=== PATIENT | female | born 2000 | race Caucasian/White ===

== ENCOUNTER 2021-03-17 22:21 | Emergency (ER) | payer MEDICAID, SELFPAY ==
[2021-03-17 22:38] VITALS: BP 115/75; PULSE 88; RESP 16; TEMP 36.6; O2SAT 99; BMI 34.2
[2021-03-17 23:19] LABS: Glucose Urine UA >=1000 MG/DL (NEG); Leukocyte Esterase Urine NEG (NEG); Nitrite Urine NEG (NEG); Specific Gravity - Urine 1.025 (1.005-1.025); Urine Blood NEG (NEG); Urine Ketones NEG (NEG); Urine Protein NEG (NEG-TRACE)
[2021-03-17 23:21] LABS: Appearance Urine CLEAR; Color Urine STRAW; UPreg QC Valid YES; Urine Pregnancy NEGATIVE (NEGATIVE)
[2021-03-17 23:38] LABS: Mucus Urine TRACE /LPF; RBC Urine 0-2 /HPF (0); Squamous Epithelial Cell Urine TRACE /LPF; WBC Urine 0-2 /HPF (0-4)
--- NOTE | 2021-03-18 02:59 | ED_ITS ---
HPI - Female Genitourinary General Chief complaint: Urogenital-Female Stated complaint: uti? Time Seen by Provider: 03/18/21 02:43 Source: patient Mode of arrival: ambulatory History of Present Illness HPI Narrative: 20-year-old female with significant past medical history of diabetes who presents this evening with excessive urination and mild burning without fevers, chills, nausea, vomiting, diarrhea. Patient states that she did take 1 remaining antibiotic pill that she had left over but did not have anymore. Otherwise patient denies any vaginal discharge. Related Data Allergies Allergy/AdvReac Type Severity Reaction Status Date / Time No Known Allergies Allergy Unverified 04/21/20 18:48 [No Known Allergies*] Review of Systems Review of Systems: Pertinent positives and negatives as stated in HPI 10 point review systems is otherwise negative. [facility] Past Medical History Source: nursing notes reviewed Medical History Diabetes type I Hyperthyroidism Social History Social History Advance Directives: No Advance Directives Information Provided: No Patient : No Physical Exam Vital Signs: Vital Signs: Last Vital Signs Temp 98 F 03/17/21 22:38 Pulse 88 03/17/21 22:38 Resp 16 03/17/21 22:38 BP 115/75 03/17/21 22:38 Pulse Ox 99 03/17/21 22:38 Body Mass Index 34.2 VITAL SIGNS: Reviewed. GENERAL: Well developed, well nourished, in no acute distress. HEAD: Normocephalic/atraumatic, EYES: PERRLA, EOMI LUNGS: Normal breath sounds. No adventitious sounds or accessory muscle use. SpO2<99> CARDIOVASCULAR: Regular rate and rhythm without noted murmurs ABDOMEN: Soft, non-tender, non-distended with bowel sounds. MUSCULOSKELETAL: No tenderness, deformities, or effusions noted on gross inspection. EXTREMITIES: No cyanosis, clubbing or edema. SKIN: Inspection of the skin reveals no rashes NEUROLOGIC: Alert and oriented x 4. Strength and sensation to light touch were grossly intact x 4. Course Course Course Narrative: 20-year-old female with history and clinical presentation suggestive of either bacterial or yeast associated UTI. On review of all investigations there is no evidence of bacterial UTI and patient was instructed to treat with [id number] medication. She was otherwise discharged home in stable condition. MDM - Female Genitourinary Lab Data Labs: Lab Results 03/17/21 03/17/21 Range/Units 23:04 23:04 Urine Color STRAW Urine Appearance CLEAR Urine pH 6.0 (5.0-8.0) Ur Specific [place] 1.025 (1.005-1.025) Urine Protein NEG (NEG-TRACE) MG/DL Urine Glucose (UA) >=1000 H (NEG) MG/DL Urine Ketones NEG (NEG) MG/DL Urine Blood NEG (NEG) Urine Nitrite NEG (NEG) Ur Leukocyte Esterase NEG (NEG) Urine RBC 0-2 (0) /HPF Urine WBC 0-2 (0-4) /HPF Ur Squamous Epith Cells TRACE /LPF Urine Bacteria NONE /LPF Urine Mucus TRACE /LPF Urine Test NEGATIVE (NEGATIVE) Discharge Plan Discharge Clinical Impression: Yeast infection Patient Disposition: Home, Self-Care Instructions: Yeast Infection (ED) Additional Instructions: 1. Recommend resuming all home medications as prescribed. 2. Recommend using vkin-glc-qdyablh generic version of Monistat, 3 day option, and follow-up with primary care provider and/or scooping machine tender on Saturday morning. Return to the ER for acute worsening of your symptoms. Referrals: Yasmin Chang [Primary Care Provider] - 2 days Interventions: ED Discharge Assessment Last Done: 03/18/21 03:24 Discharge Date/Time: 03/18/21 03:24
== END 2021-03-18 03:24 | disposition home or self-care (01) ==
PROVIDERS: Emergency Provider Student in an Organized Health Care Education/Training Program; PCP Nurse Practitioner
DX: B37.3 Candidiasis of vulva and vagina (principal); E10.9 Type 1 diabetes mellitus without complications
CPT/HCPCS: 36415; 81001; 81025; 99283

== ENCOUNTER 2022-01-15 18:39 | Emergency (ER) | payer MEDICAID, SELFPAY ==
[2022-01-15 18:44] VITALS: BP 135/88; PULSE 114; RESP 22; TEMP 36.8; O2SAT 98; BMI 35.2
--- NOTE | 2022-01-15 18:47 | ECG_ITS ---
Test Reason : CHEST PAIN Blood Pressure : / mmHG Vent. Rate : 110 BPM Atrial Rate : 110 BPM P-R Int : 134 ms QRS Dur : 080 ms QT Int : 338 ms P-R-T Axes : 016 055 013 degrees QTc Int : 457 ms Sinus tachycardia Cannot rule out Anterior infarct , age undetermined Abnormal ECG No previous ECGs available Referred By: Generic ED Physician Electronically Signed By:Bam Verma
[2022-01-15 19:21] LABS: MANUAL DIFF FLAG NO
[2022-01-15 19:23] LABS: Basophils Percent Auto 0.4 % (0-2); Eosinophils Absolute Auto 0.1 X10*3/uL (0.0-0.4); Hematocrit 43.7 % (37.0-47.0); Hemoglobin 14.5 g/dl (12.0-16.0); Imm Gran Abs Auto 0.03 X10*3/uL (0.00-0.03); Imm Gran Pct Auto 0.3 % (0.0-0.4); Lymphocytes Absolute Auto 1.9 X10*3/uL (1.2-4.9); Lymphocytes Percent Auto 18.9 % (20-40); Mean Corpuscular HGB Conc 33.2 g/dl (31.0-35.0); Mean Corpuscular Hemoglobin 28.1 pg (27.0-33.0); Mean Corpuscular Volume 84.7 fL (80.0-98.0); Mean Platelet Volume 9.2 fL (9.4-12.3); Monocytes Absolute Auto 0.7 X10*3/uL (0.1-1.2); Monocytes Percent Auto 7.1 % (2-11); Neutrophils Absolute Auto 7.1 x10*3/uL (2.0-8.3); Neutrophils Percent Auto 72.3 % (45-73); Platelet Count 364 X10*3/uL (160-400); Red Blood Count 5.16 X10*6/uL (4.20-5.50); Red Cell Distribution Width 13.3 % (11.0-16.0); White Blood Count 9.8 X10*3/uL (4.8-10.8)
[2022-01-15 19:25] LABS: Glucose, Whole Blood 120 mg/dL (60-115)
[2022-01-15 19:38] LABS: Anion Gap 15 (12-20); Blood Urea Nitrogen 10 mg/dL (9-16); Calcium 9.6 mg/dL (8.4-10.2); Carbon Dioxide 22 mmol/L (22-29); Chloride 102 mmol/L (96-108); Creatinine Clr Calc Pharmacy 139.2; Estimated Glomerular Filt Rate > 60; Glucose Random 137 mg/dL (60-115); Potassium 4.2 mmol/L (3.3-5.1); Sodium 135 mmol/L (135-145)
[2022-01-15 19:46] LABS: Troponin-I High Sensitivity < 3.5 ng/L (<3.5-17.0)
[2022-01-15 20:35] LABS: Appearance Urine HAZY; Color Urine DARK YELLOW
[2022-01-15 20:42] LABS: UACC CULT YES
[2022-01-15 20:52] LABS: Bacteria Urine 2+ /LPF; Squamous Epithelial Cell Urine 1+ /LPF; WBC Urine TNTC /HPF (0-4)
--- NOTE | 2022-01-15 23:35 | ED_ITS ---
HPI - Chest Pain General Chief Complaint: Chest Pain Stated Complaint: lower back pain/chest pain/type 1 diabetic Time Seen by Provider: 01/15/22 23:35 Source: patient Mode of arrival: ambulatory Limitations: no limitations History of Present Illness HPI narrative: Patient diabetic with history of recurrent UTI been having frequency dysuria since on today no fever no chills no nausea no vomiting, epigastric pain also no vaginal discharge patient just finished her period no hematuria no flank pain Related Data Previous Rx's Medication Instructions Recorded cefpodoxime 200 mg tablet 200 mg PO BID #14 tabs 01/15/22 phenazopyridine 200 mg tablet 200 mg PO TID 2 days #6 tabs 01/15/22 (Pyridium) Allergies Allergy/AdvReac Type Severity Reaction Status Date / Time No Known Allergies Allergy Verified 01/15/22 18:44 [No Known Allergies*] Review of Systems Review of Systems: Yes all other systems are reviewed and are negative PMFSH Past Medical History Medical History Diabetes type I Hyperthyroidism Physical Exam Vital Signs: Vital Signs: Last Vital Signs Temp 98.2 F 01/15/22 18:44 Pulse 97 01/15/22 23:37 Resp 16 01/15/22 23:37 BP 135/88 01/15/22 18:44 Pulse Ox 99 01/15/22 23:37 O2 Del Method 01/15/22 23:37 BMI result Body Mass Index 35.2 Appearance: Alert. Oriented X3. No acute distress. ENT: Pharynx normal. Oral Mucosa moist Neck: Normal inspection. Neck supple. CVS: Normal heart rate and rhythm. Pulses normal. Respiratory: No respiratory distress. Equal air entry bilateral, no wheezing/rales/rhonchi Abdomen: Soft and nontender. Bowel sounds are present, no mass palpable, no CVA tenderness Skin: Skin warm and dry. Normal skin color. Normal skin turgor. Extremities: No lower extremity edema. No calf tenderness Neuro: Oriented X 3. No motor deficit. MDM - Chest Pain MDM Narrative Medical decision making narrative: Patient with uncomplicated UTI will discharge patient home on cefpodoxime and Pyridium Lab Data Attestation: I reviewed the patient's lab results. Result diagrams: 01/15/22 19:16 01/15/22 19:16 Labs: Lab Results 01/15/22 01/15/22 01/15/22 Range/Units 19:16 19:16 19:16 WBC 9.8 (4.8-10.8) X10*3/uL RBC 5.16 (4.20-5.50) X10*6/uL Hgb 14.5 (12.0-16.0) g/dl Hct 43.7 (37.0-47.0) % MCV 84.7 (80.0-98.0) fL MCH 28.1 (27.0-33.0) pg MCHC 33.2 (31.0-35.0) g/dl RDW 13.3 (11.0-16.0) % Plt Count 364 (160-400) X10*3/uL MPV 9.2 L (9.4-12.3) fL Immature Gran % (Auto) 0.3 (0.0-0.4) % Neut % (Auto) 72.3 (45-73) % Lymph % (Auto) 18.9 L (20-40) % Glenn % (Auto) 7.1 (2-11) % Eos % (Auto) 1.0 (0-4) % Baso % (Auto) 0.4 (0-2) % Lymph # (Auto) 1.9 (1.2-4.9) X10*3/uL Glenn # (Auto) 0.7 (0.1-1.2) X10*3/uL Eos # (Auto) 0.1 (0.0-0.4) X10*3/uL Baso # (Auto) 0.0 (0.0-0.2) X10*3/uL Abs Immat Gran (auto) 0.03 (0.00-0.03) X10*3/uL Absolute Neuts (auto) 7.1 (2.0-8.3) x10*3/uL Absolute Nucleated RBC 0.000 (0.0-0.012) X10*3/uL Nucleated RBC % (auto) 0.0 (0.0-0.2) /100WBC Sodium 135 (135-145) mmol/L Potassium 4.2 (3.3-5.1) mmol/L Chloride 102 (96-108) mmol/L Carbon Dioxide 22 (22-29) mmol/L Anion Gap 15 (12-20) BUN 10 (9-16) mg/dL Creatinine 0.67 (0.5-1.4) mg/dL Estim Creat Clear Calc 139.2 Estimated GFR > 60 POC Glucose (60-115) mg/dL Random Glucose 137 H (60-115) mg/dL Calcium 9.6 (8.4-10.2) mg/dL Troponin I High Sens < 3.5 (<3.5-17.0) ng/L Urine Color Urine Appearance Urine pH Ur Specific [place] Urine Protein Urine Glucose (UA) Urine Ketones Urine Blood Urine Nitrite Ur Leukocyte Esterase Urine RBC (0) /HPF Urine WBC (0-4) /HPF Ur Squamous Epith Cells /LPF Urine Bacteria /LPF 01/15/22 01/15/22 Range/Units 19:19 20:28 WBC (4.8-10.8) X10*3/uL RBC (4.20-5.50) X10*6/uL Hgb (12.0-16.0) g/dl Hct (37.0-47.0) % MCV (80.0-98.0) fL MCH (27.0-33.0) pg MCHC (31.0-35.0) g/dl RDW (11.0-16.0) % Plt Count (160-400) X10*3/uL MPV (9.4-12.3) fL Immature Gran % (Auto) (0.0-0.4) % Neut % (Auto) (45-73) % Lymph % (Auto) (20-40) % Glenn % (Auto) (2-11) % Eos % (Auto) (0-4) % Baso % (Auto) (0-2) % Lymph # (Auto) (1.2-4.9) X10*3/uL Glenn # (Auto) (0.1-1.2) X10*3/uL Eos # (Auto) (0.0-0.4) X10*3/uL Baso # (Auto) (0.0-0.2) X10*3/uL Abs Immat Gran (auto) (0.00-0.03) X10*3/uL Absolute Neuts (auto) (2.0-8.3) x10*3/uL Absolute Nucleated RBC (0.0-0.012) X10*3/uL Nucleated RBC % (auto) (0.0-0.2) /100WBC Sodium (135-145) mmol/L Potassium (3.3-5.1) mmol/L Chloride (96-108) mmol/L Carbon Dioxide (22-29) mmol/L Anion Gap (12-20) BUN (9-16) mg/dL Creatinine (0.5-1.4) mg/dL Estim Creat Clear Calc Estimated GFR POC Glucose 120 H (60-115) mg/dL Random Glucose (60-115) mg/dL Calcium (8.4-10.2) mg/dL Troponin I High Sens (<3.5-17.0) ng/L Urine Color DARK YELLOW Urine Appearance HAZY Urine pH TNP Ur Specific [place] TNP Urine Protein TNP Urine Glucose (UA) TNP Urine Ketones TNP Urine Blood TNP Urine Nitrite TNP Ur Leukocyte Esterase TNP Urine RBC 10-14 H (0) /HPF Urine WBC TNTC H (0-4) /HPF Ur Squamous Epith Cells 1+ /LPF Urine Bacteria 2+ /LPF ECG Data ECG #1: Attestation: I personally reviewed and interpreted this ECG as follows: Interpretation: Sinus tachycardia heart rate 110 beats per minute no acute ST T wave changes no acute ischemia normal intervals Discharge Plan Discharge Clinical Impression: UTI (urinary tract infection) Patient Disposition: Home, Self-Care Instructions: Urinary Tract Infection in Women (ED) Additional Instructions: Drink plenty of fluids Antibiotic as prescribed Follow with PCP if not better Prescriptions: New cefpodoxime 200 mg tablet 200 mg PO BID Qty: 14 0RF Rx Instructions: must administer with a meal/food phenazopyridine [Pyridium] 200 mg tablet 200 mg PO TID 2 Days Qty: 6 0RF
[2022-01-15 23:37] VITALS: PULSE 97; RESP 16; O2SAT 99
[2022-01-15] MEDS: Phenazopyridine HCL 200 MG TABLET PO (23:49)
--- NOTE | 2022-01-15 23:50 | PC.NURSE ---
medicated per provider order.
== END 2022-01-15 23:59 | disposition home or self-care (01) ==
LOC: HO.ED 23:59
PROVIDERS: Emergency Provider Internal Medicine; PCP Nurse Practitioner
DX: N39.0 Urinary tract infection, site not specified (principal); E10.9 Type 1 diabetes mellitus without complications
CPT/HCPCS: 36415; 80048; 81001; 82947; 84484; 85025; 87086; 87088; 87186; 93005; 99284; 99285

== ENCOUNTER 2022-06-14 16:00 | Outpatient (RCR) | payer MEDICAID, SELFPAY ==
--- NOTE | 2022-05-16 17:22 | MHC.PT.EP ---
[facility] [place] Office [place] Office [place] Office [address] Fernando Wagoner [address] [phone] F: [phone] F: [phone] F: [phone] F: [phone] Physical Therapy Plan of Care Date of Evaluation: Date of Surgery: N/A Diagnosis: pain, joint, knee, left lumbar muscle pain Assessment: Pt is a 21yo F who presents to PT with L knee pain and L low back pain without clear RICHARD. She presents to PT with current impairments in pain, decreased ROM, decreased core stabilization, decreased hip/glute strength, impaired posture, and impaired body mechanics. She is limited functionally by prolonged sitting, standing, walking, stair navigation, bending, and squatting. She is a good candidate for skilled PT in order to address current impairments to facilitate return to PLOF. She is recommended to be seen 2x/week for 4 weeks and will be reassessed at that time. Frequency and Duration: The patient will be seen 2x/week for 4 weeks Short Term Goals: Pt will be I with HEP to promote self management of symptoms Pt will increase L knee flexion by at least 10 degrees Senior Living Goals: Pt will increase standing and walking to > 1 hour on even and uneven surfaces Pt will demonstrate ability to squat and lift object from floor with proper body mechanics and minimal to no pain Pt will demonstrate improvements in function as evidenced by statistically significant improvement in Modified Oswestry Low Back Pain Disability Questionnaire Treatment Plan: Modalities to reduce pain, spasms and effusion. Manual therapy to restore motion and function. Therapeutic exercise to improve strength and flexibility. Neuromuscular re-education for posture and balance. Therapeutic activities to return to functional activities of daily living. Electronically signed by: Rylee Wells, PT, DPT Please sign and return to therapist. Thank you for your referral.
--- NOTE | 2022-07-11 14:48 | MHC.PT.DC ---
[facility] [place] Office [place] Office [place] Office [address] Fernando Wagoner [address] [phone] F: [phone] F: [phone] F: [phone] F: [phone] Physical Therapy Discharge Report Diagnosis: pain, joint, knee, left lumbar muscle pain Date of Surgery: N/A Date of Evaluation: 05/16/22 Date of Discharge: 07/11/22 Treatments to Date: 3 Cancellations to Date: 2 No Shows to Date: 4 Discharge Status: Visit Non-compliance Discharge Summary: Pt was seen for PT from 05/16/22-06/14/22. Her last attended appointment was 06/14/22. She has had 2 cancellations and 4 no-show appointments since SOC. Pt is being D/C from skilled PT per [facility] attendance policy and visit non-compliance. Pt current level of function unknown at this time. Electronically signed by: Rylee Wells, PT, DPT Please sign and return to therapist. Thank you for your referral.
== END 2022-07-11 14:48 | disposition home or self-care (01) ==
LOC: HO.PT 16:00
PROVIDERS: PCP Nurse Practitioner; Visit Provider Registered Nurse
DX: M25.562 Pain in left knee (principal)
CPT/HCPCS: 97110; 97162

== ENCOUNTER 2022-09-22 14:18 | Emergency (ER) | payer MEDICAID, SELFPAY ==
--- NOTE | 2022-09-22 14:23 | ED_ITS ---
HPI - Extremity Injury (Upper) General Chief Complaint: Skin/Abscess/Foreign Body Stated Complaint: r index finger stuck in object at home Time Seen by Provider: 09/22/22 14:26 Source: patient Mode of arrival: ambulatory Limitations: no limitations History of Present Illness HPI narrative: 21 yo female with history of IDDM, hyperthyroidism right hand dominant here with complaints of frosting bag tip stuck on her right index finger, tetanus unknown. Related Data Previous Rx's Medication Instructions Recorded cefpodoxime 200 mg tablet 200 mg PO BID #14 tabs 01/15/22 phenazopyridine 200 mg tablet 200 mg PO TID 2 days #6 tabs 01/15/22 (Pyridium) Allergies Allergy/AdvReac Type Severity Reaction Status Date / Time Penicillins Allergy Intermediate Swelling Verified 09/22/22 14:26 Review of Systems Review of Systems: Yes all other systems are reviewed and are negative Constitutional: Constitutional: Reports no additional constitutional complaints, Denies body ache(s), Denies chills, Denies fever(s), Denies headache(s) and Denies weakness Eyes: Eyes: Reports no additional eye complaints and Denies change in vision ENT: Reports system reviewed and no additional complaints, except as documented, Denies dizziness, Denies headache(s), Denies nasal congestion, Denies nasal discharge and Denies neck pain Cardiovascular: Cardiovascular: Reports no additional cardiovascular complaints, Denies chest pain, Denies leg edema and Denies dyspnea Respiratory: Respiratory: Reports no additional respiratory complaints, Denies cough and Denies dyspnea Gastrointestinal: Gastrointestinal: Reports no additional gastrointestinal complaints, Denies abdominal pain, Denies diarrhea, Denies nausea and Denies vomiting Genitourinary: Genitourinary: Reports no additional female genitourinary complaints and Denies urinary incontinence Musculoskeletal: Musculoskeletal: Reports no additional musculoskeletal complaints, Denies back pain, Denies arthralgias, Denies joint swelling, Denies neck pain, Denies numbness and Denies tingling Integumentary/Breasts: Skin/Breast: Reports system reviewed and no additional complaints, except as docu and Denies rash Neurologic: Reports system reviewed and no additional complaints, except as documented, Denies Abnormal speech present, Denies dizziness, Denies headache(s), Denies numbness, Denies tingling and Denies weakness PMF Past Medical History Attestation statement: The following information was validated with the patient. Source: old records reviewed and nursing notes reviewed Medical History Diabetes type I Hyperthyroidism Social History Social History Advance Directives: No Advance Directives Information Provided: No Physical Exam Vital Signs: Vital Signs: Last Vital Signs Pulse 87 09/22/22 14:26 Resp 16 09/22/22 14:26 Pulse Ox 98 09/22/22 14:26 O2 Del Method 09/22/22 14:26 BMI result Body Mass Index 37.2 Const: General: cooperative, healthy appearing, comfortable and no acute distress Orientation/consciousness: patient oriented x3 Limitations: no limitations HEENT: Head: Yes normal to inspection Ears: hearing grossly normal bilaterally General nose exam: Normal external nose present Face and sinus: Yes normal facial exam Mouth: Normal oral and palatal mucosa present Throat: Yes posterior oropharynx normal Eyes: General: appearance normal, both eyes and all related structures Pupils: Equal, round and reactive pupils present Neck: Neck: Yes normal visual inspection Chest: Chest palpation & inspection: normal inspection of the chest Resp: Effort & Inspection: normal respiratory effort Auscultation: clear to auscultation bilaterally Cardio: Rate: regular rate Rhythm: regular rhythm Peripheral pulses: Peripheral pulses 2+ throughout GI: Inspection: Yes normal to inspection Palpation (GI): Soft to palpation and nontender Auscultation: normal bowel sounds Back/Spine/Pelvis: Thoracic/Lumbar Spine: thoracic and lumbar spine normal to inspection Skin: General skin exam: no rashes or lesions noted Neuro: General: patient oriented x3, no focal motor deficits and normal sensation to monofilament Cranial nerves: Yes Equal, round and reactive pupils present Cognition (Neuro): normal cognition Speech: No Abnormal speech present Gait exam (Neuro): Normal gait present Motor exam (neuro): 5/5 motor strength present throughout Extrem: Other: Over the right index finger there is a tapered cylinder like frosting bag tip, the distal tip of the finger is discolored and swelling, There are jagged prongs on the end of the tip that are embedded in the distal tip of the finger. Sensation is normal. General: Yes normal to inspection Medications Administered Discontinued Medications Generic Name Dose Route Start Last Admin Trade Name Freq PRN Reason Stop Dose Admin Diphtheria/Tetanus/Acell Pertussis 0.5 ml 09/22/22 14:40 09/22/22 14:53 Diphth,Pertus(Acell),Tet Adult 0.5 Ml Syringe IM 09/22/22 14:41 0.5 ml .ONCE ONE Administration Lidocaine HCl 5 ml 09/22/22 14:23 09/22/22 14:33 Lidocaine Hcl 2 % Mpf 5 Ml Vial SUBCUT 09/22/22 14:24 Not Given ONCE ONE Lidocaine HCl 5 ml 09/22/22 14:32 09/22/22 14:47 Lidocaine Hcl 1 % Mpf 5 Ml Vial INFILTRATI 09/22/22 14:33 5 ml ONCE ONE Administration Medical Decision Making Medical Decision Making MDM Narrative: 21 yo female here with a frosting bag tip stuck on her right finger. See procedure note. Patient received digital block for pain control prior to t he removal of the object. Tetanus will be updated. Patient was very superficial abrasion postprocedure over the volar aspect of the distal tip. Bleeding well controlled. Site was cleansed copiously with normal saline and Betadine. A dressing was applied. Differential Diagnosis Differential Diagnoses: The differential diagnosis associated with the presentation includes Foreign body Procedures Procedure Narrative Procedure Narrative: FB removed from right index finger with pliers Nerve Block Nerve Block 1: Time out performed: No Local Anesthetic: lidocaine 1% Amount of anesthesia used (mL): 3 Side: right Nerve Blocks: digital Procedure Successful: Yes Patient Tolerated Procedure: well Complications: none Discharge Plan Discharge Clinical Impression: Foreign body (FB) in soft tissue Patient Disposition: Home, Self-Care Instructions: Soft Tissue Foreign Body (ED) Additional Instructions: monitor the site for warmth, redness, drainage, fever keep the site, clean and dry Prescriptions: No Action cefpodoxime 200 mg tablet 200 mg PO BID Qty: 14 0RF Rx Instructions: must administer with a meal/food phenazopyridine [Pyridium] 200 mg tablet 200 mg PO TID 2 Days Qty: 6 0RF Referrals: Physician,Unknown J [Physician] -
[2022-09-22 14:26] VITALS: PULSE 87; RESP 16; O2SAT 98; BMI 37.2
[2022-09-22] MEDS: Lidocaine HCl 1 % MPF 5 ML VIAL INFILTRATI (14:47)
[2022-09-22] MEDS: Diphth,Pertus(ACell),Tet Adult 0.5 ML SYRINGE IM (14:53)
== END 2022-09-22 15:09 | disposition home or self-care (01) ==
LOC: HO.ED 14:57
PROVIDERS: Emergency Provider Emergency Medicine
DX: M79.5 Residual foreign body in soft tissue (principal)
CPT/HCPCS: 64450; 90471; 90715; 99284

== ENCOUNTER 2022-12-07 16:09 | Emergency (ER) | payer MEDICAID, SELFPAY ==
[2022-12-07 16:20] VITALS: BP 123/77; PULSE 82; RESP 19; TEMP 36; O2SAT 98; BMI 38.6
--- NOTE | 2022-12-07 16:21 | ED_ITS ---
HPI - Dental/Oral General Chief complaint: Ear Problems <SHAYNE Ferrara - Last Filed: 12/07/22 16:25> Stated complaint: ear pain, migraine, dental pain <SHAYNE Ferrara Last Filed: 12/07/22 16:25> Time Seen by Provider: 12/07/22 17:26 <SHAYNE Ferrara Last Filed: 12/07/22 16:25> Source: patient and family <SHAYNE Cunningham Last Filed: 12/07/22 17:39> Mode of arrival: ambulatory <SHAYNE Cunningham Last Filed: 12/07/22 17:39> Limitations: no limitations <SHAYNE Cunningham Last Filed: 12/07/22 17:39> History of Present Illness HPI Narrative: 22-year-old female presenting to the ER with complaints of left ear pain that is radiating up to her head and giving her migraine headaches along with dental pain usually worse in the mornings for the past few weeks that has been intermittently. She reports that she does not grind her teeth at night that she is aware of. Her spouse next her reports that he usually falls asleep before her therefore he is unsure if she grinds her teeth. She denies any fevers, drainage of the ear, ringing of the ears, sore throat, trouble swallowing or breathing, rashes, recent falls or trauma or any other symptoms complaints or concerns at this time. <SHAYNE Cunningham Last Filed: 12/07/22 17:39> Related Data Home medications: Previous Rx's Medication Instructions Recorded cefpodoxime 200 mg tablet 200 mg PO BID #14 tabs 01/15/22 phenazopyridine 200 mg tablet 200 mg PO TID 2 days #6 tabs 01/15/22 (Pyridium) metaxalone 800 mg tablet 800 mg PO TID PRN muscle pain #14 12/07/22 tabs 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 #21 ea 12/07/22 a dose pack (Medrol (Stas)) naproxen 500 mg tablet 500 mg PO BID PRN pain #14 tabs 12/07/22 <SHAYNE Ferrara Last Filed: 12/07/22 16:25> Allergies/adverse reactions: Allergies Allergy/AdvReac Type Severity Reaction Status Date / Time Penicillins Allergy Intermediate Swelling Verified 09/22/22 14:26 <SHAYNE Ferrara - Last Filed: 12/07/22 16:25> Review of Systems Review of Systems: Constitutional : No Fever, No Chills, No changes in PO intake, No difficulty s peaking, no recent dental procedure, no heat or cold intolerance while eating, no recent face trauma, ENT/Mouth : No swallowing difficulty, no change in voice, + left jaw pain/left ear pain/dental pain, No facial swelling, no drooling, no trismus, no bleeding, no throat swelling, no lacerations, no tongue swelling, gum swelling, Eyes: No Eye Pain, No periorbital Swelling Cardiovascular : No Chest Pain, No SOB Respiratory : No Cough, No Sputum, No Wheezing, No Smoke Exposure, No Dyspnea Gastrointestinal : No Nausea, No Vomiting, No Diarrhea Genitourinary : No Dysuria Musculoskeletal : No Myalgias Skin : No rash, no facial swelling or redness, Neuro : No Weakness, No Numbness, No Headache <SHAYNE Cunningham - Last Filed: 12/07/22 17:39> Yes all other systems are reviewed and are negative <SHAYNE Cunningham - Last Filed: 12/07/22 17:39> [facility] Past Medical History Attestation statement: The following information was validated with the patient. <SHAYNE Cunningham - Last Filed: 12/07/22 17:39> Source: old records reviewed, obtained from family and nursing notes reviewed <SHAYNE Cunningham - Last Filed: 12/07/22 17:39> Medical History: Medical History Diabetes type I Hyperthyroidism <SHAYNE Ferrara - Last Filed: 12/07/22 16:25> Social History Social History: Social History Alcohol intake: never <SHAYNE Ferrara - Last Filed: 12/07/22 16:25> Physical Exam Vital Signs: Vital Signs: Last Vital Signs Temp 96.8 F 12/07/22 16:20 Pulse 82 12/07/22 16:20 Resp 19 12/07/22 16:20 BP 123/77 12/07/22 16:20 Pulse Ox 98 12/07/22 16:20 O2 Del Method Room Air 12/07/22 16:20 BMI result Body Mass Index 38.6 <SHAYNE Ferrara - Last Filed: 12/07/22 16:25> Vital Signs: Last Vital Signs Temp 96.8 F 12/07/22 16:20 Pulse 82 12/07/22 16:20 Resp 19 12/07/22 16:20 BP 123/77 12/07/22 16:20 Pulse Ox 98 12/07/22 16:20 O2 Del Method Room Air 12/07/22 16:20 BMI result Body Mass Index 38.6 vital signs have been reviewed as normal and appeared to be correct. Blood pressure normal. Heart rate normal. Respiration rate normal. Temperature normal. Oxygen saturation normal. <SHAYNE Cunningham - Last Filed: 12/07/22 17:39> Appearance: Alert. Oriented X3. No acute distress. Head: Normal external exam. Normocephalic. Atraumatic. Eyes: PERRLA. EOMI. Conjunctiva and sclera normal. Eyelids normal. ENT: EAC normal. TM's Normal. Pharynx normal. Uvula midline. Moist mucous membranes. No trismus noted. No drooling noted. No muffled voice noted. Patient with tenderness palpation over the left TMJ worse with opening closing of the mouth. No crepitus is noted. Not consistent mastoiditis. Dentition: dentition within normal limits. Gingival within normal limits. No fluctuance. Not consistent with peritonsillar abscess. Not consistent with dental abscess. No salivary duct obstruction noted. Neck: Normal inspection. Neck supple. FROM. No adenopathy. Thyroid Normal. No meningeal signs. No neck mass noted. Trachea midline. CVS: Normal heart rate and rhythm. Heart sound normal. No murmurs noted. Pulses normal throughout. Respiratory: No respiratory distress. Painless inspiration. Breath sounds normal. No wheezes/rales/rhonchi noted. Chest nontender. No accessory muscle usage noted or decreased air movement noted. Back: Full range of motion noted. Skin: Skin warm and dry. Normal skin color. Normal skin turgor. No rashes/lesions/lacerations noted. Extremities:Extremities exhibit normal range of motion. Extremities nontender. Neuro: Oriented X 3. No motor deficit. No sensory deficit. Reflexes normal. <SHAYNE Cunningham - Last Filed: 12/07/22 17:39> Course Course Course Narrative: RME - 22 yo female presents to the ER for evaluation of bilateral ear pain, headaches and left upper dental pain that has been present for the last couple of weeks, worse in the last 2 days with inability to sleep. She saw her dentist and completed a course of antibiotics 4 days ago, plan to follow up on 12/18. Right EAC impacted w/ cerumen. Will need irrigation/curette for removal. No palpable left upper dental abscess, no facial swelling noted. OK for [facility] <SHAYNE Ferrara - Last Filed: 12/07/22 16:25> Reevaluation(s) Reevaluation #1: Given HPI and PE, most likely diagnosis: TMJ syndrome. No facial swelling, signs of infection, cellulits, lymphangitis, or abscess. Patient is afebrile, well appearing in no acute distress. No ginigival swelling, or bleeding. Will treat pain. Instructed patient to return if any new or worsening symptoms. Patient understands agrees with this plan. <SHAYNE Cunningham - Last Filed: 12/07/22 17:39> Time: 17:37 <SHAYNE Cunningham - Last Filed: 12/07/22 17:39> Medical Decision Making Independent Historian Clinical information obtained from an independent historian. History obtained from or confirmed by: Spouse <SHAYNE Cunningham Last Filed: 12/07/22 17:39> Prescription Management I considered prescription management with: Pain Medication (Naproxen and muscle relaxers and steroids) <SHAYNE Cunningham Last Filed: 12/07/22 17:39> Chronic Conditions Patient?s care impacted by: Diabetes <SHAYNE Cunningham Last Filed: 12/07/22 17:39> Discharge Plan Discharge Clinical Impression: Left-sided temporomandibular joint pain-dysfunction syndrome <SHAYNE Ferrara Last Filed: 12/07/22 16:25> Patient Disposition: Home, Self-Care <SHAYNE Ferrara Last Filed: 12/07/22 16:25> Instructions: Temporomandibular Disorder (ED) <SHAYNE Ferrara - Last Filed: 12/07/22 16:25> Prescriptions: New naproxen 500 mg tablet 500 mg PO BID PRN (Reason: pain) Qty: 14 0RF metaxalone 800 mg tablet 800 mg PO TID PRN (Reason: muscle pain) Qty: 14 0RF methylprednisolone [Medrol (Stas)] 4 mg tablets,dose pack 4 mg PO DAILY Qty: 21 0RF No Action cefpodoxime 200 mg tablet 200 mg PO BID Qty: 14 0RF Rx Instructions: must administer with a meal/food phenazopyridine [Pyridium] 200 mg tablet 200 mg PO TID 2 Days Qty: 6 0RF <SHAYNE Ferrara - Last Filed: 12/07/22 16:25> Referrals: [facility] [Primary Care Provider] - 2 days <SHAYNE Ferrara - Last Filed: 12/07/22 16:25>
== END 2022-12-07 17:50 | disposition home or self-care (01) ==
LOC: HO.ED 17:38
PROVIDERS: Emergency Provider Emergency Medicine
DX: M26.602 Left temporomandibular joint disorder, unspecified (principal); Z79.899 Other long term (current) drug therapy
CPT/HCPCS: 99282; 99283

== ENCOUNTER 2023-02-14 13:19 | Emergency (ER) | payer MEDICAID, SELFPAY ==
--- NOTE | ~2023-02-14 | US_ITS ---
EXAMINATION: US RETROPERITONEAL LIMITED (RENAL ONLY) CLINICAL INFORMATION: Bilateral flank pain. COMPARISON: None available. TECHNIQUE: Routine grayscale imaging of both kidneys is performed. FINDINGS: RIGHT KIDNEY: 9.8 x 6.4 x 5.7 cm (SAG x AP x TRV). The kidney is normal in size, contour, and echogenicity. Renal cortical thickness is normal. No calculi or focal parenchymal lesions. No hydronephrosis. LEFT KIDNEY: 10.1 x 5.7 x 5.2 cm (SAG x AP x TRV). The kidney is normal in size, contour, and echogenicity. Renal cortical thickness is normal. No calculi or focal parenchymal lesions. No hydronephrosis. US/US renal BI IMPRESSION: Unremarkable renal ultrasound.
[2023-02-14 13:44] VITALS: BP 120/64; PULSE 88; RESP 16; TEMP 36.7; O2SAT 98; BMI 38.3
--- NOTE | 2023-02-14 13:45 | ED.GENADULT ---
HPI - General Adult General Chief complaint: Urogenital-Female Stated complaint: uti symptons Time Seen by Provider: 02/14/23 17:08 Source: patient, RN notes reviewed and old records reviewed Mode of arrival: ambulatory History of Present Illness HPI narrative: 22-year-old female with no significant past medical history presenting to the ED complaining of dysuria, and suprapubic pressure since last night. Also reports bilateral low/mid back pain x today. Denies fever, chills, nausea/vomiting, hematuria, vaginal bleeding/discharge. Related Data Previous Rx's Medication Instructions Recorded cefpodoxime 200 mg tablet 200 mg PO BID #14 tabs 01/15/22 phenazopyridine 200 mg tablet 200 mg PO TID 2 days #6 tabs 01/15/22 (Pyridium) metaxalone 800 mg tablet 800 mg PO TID PRN muscle pain #14 12/07/22 tabs 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 #21 ea 12/07/22 a dose pack (Medrol (Stas)) naproxen 500 mg tablet 500 mg PO BID PRN pain #14 tabs 12/07/22 cefuroxime axetil 250 mg tablet 250 mg PO BID 7 days #14 tabs 02/14/23 phenazopyridine 200 mg tablet 200 mg PO TID PRN pain 6 doses #6 02/14/23 (Pyridium) tabs Allergies Allergy/AdvReac Type Severity Reaction Status Date / Time Penicillins Allergy Intermediate Swelling Verified 09/22/22 14:26 Review of Systems Review of Systems: Constitutional: No Fever, No Chills ENT/Mouth: No Ear Pain, No Nasal Congestion, No sore throat, No Rhinorrhea, No Swallowing Difficulty Cardiovascular: No Chest Pain, No SOB Respiratory: No Cough, No Sputum, No Wheezing Gastrointestinal: No Nausea, No Vomiting, No Diarrhea, No Constipation, + Abdominal pain Genitourinary: + Dysuria, No Urinary Frequency, No Hematuria, No Urinary Incontinence/retention, No Urgency, + Flank Pain Musculoskeletal: No joint pain, No Myalgias, No Joint Swelling Skin: No Skin Lesions, No rash Neuro: No Weakness, No Numbness, No Paresthesias Yes all other systems are reviewed and are negative Constitutional: Constitutional: Reports as per [facility] Past Medical History Attestation statement: The following information was validated with the patient. Source: old records reviewed Medical History Diabetes type I Hyperthyroidism Social History Social History Alcohol intake: never Smoked in Last 30 Days: No Use of substances other than those prescribed or required for medical reasons: No Advance Directives: No Advance Directives Information Provided: Yes Physical Exam ED Vital Signs: Vital Signs - 24 hr 02/14/23 13:44 02/14/23 18:49 Temperature 98.1 F 98.8 F Pulse Rate 88 88 Respiratory Rate 16 16 Blood Pressure 120/64 104/70 Pulse Oximetry 98 98 Oxygen Delivery Method Room Air Room Air BMI result Body Mass Index 38.3 Const General: cooperative, healthy appearing and no acute distress Orientation/consciousness: patient oriented x3 Limitations: no limitations HENMT Head: Yes normal to inspection and Yes atraumatic Ears: hearing grossly normal bilaterally General nose exam: Normal external nose present Face and sinus: Yes normal facial exam Eyes General: appearance normal, both eyes and all related structures EOM: EOMs intact bilaterally Neck Neck: Yes normal visual inspection and Yes no meningeal signs Resp Effort & Inspection: normal respiratory effort and no respiratory distress Auscultation: clear to auscultation bilaterally Cardio Rate: regular rate Heart sounds: S1 normal heart sound present and S2 normal heart sound present GI Inspection: Yes normal to inspection Palpation (GI): Soft to palpation, nontender, no guarding and not rigid General: Yes CVA tenderness bilateral Back/Spine/Pelvis Back: CVA tenderness Skin Rashes: no rashes Wounds: no wounds Neuro General: patient oriented x3, tone normal and no meningeal signs Gait exam (Neuro): Normal gait present Extrem General: Yes normal to inspection Course Course Course Narrative: This is a rapid medical exam: Additional HPI, ROS, PE not included below will be deferred to primary provider. Patient is a 22-year-old female with history of T1DM presenting to the emergency department with dysuria and suprapubic pressure since last night. Also complains of some low back pain. Denies fever, nausea, vomiting. POC glucose was 129 this morning. Plan: UA, upreg -1806--UA contaminated however infected and patient is symptomatic > will treat with antibiotics -labs unremarkable. Ultrasound unremarkable Results discussed with patient including worrisome signs and symptoms and strict return precautions, and when to return to the emergency department. They verbalized understanding and feel safe for discharge at this time. Medications Administered Discontinued Medications Generic Name Dose Route Start Last Admin Trade Name Jerry PRN Reason Stop Dose Admin Sodium Chloride 1,000 mls @ 999 mls/hr 02/14/23 17:45 02/14/23 18:04 Ns IV 02/14/23 18:45 999 mls/hr .Q1H1M ELVIRA Administration Ketorolac Tromethamine 15 mg 02/14/23 17:36 02/14/23 18:03 Ketorolac Tromethamine 15 Mg/Ml Vial IVPUSH 02/14/23 17:37 15 mg ONCE ONE Administration Medical Decision Making Medical Decision Making MDM Narrative: 22-year-old female with no significant past medical history presenting to the ED complaining of dysuria, and suprapubic pressure since last night. On exam vital signs stable, NAD, nontoxic appearing, physical exam as above, abdomen soft/nontender, bilateral CVAT noted. Concern for UTI vs pyelonephritis. Renal stone on differential however lower. Lower suspicion for ovarian torsion/STI, appendicitis/diverticulitis plan: UA, labs, renal ultrasound Please refer to course for remaining clinical decision making, interpretation of labs/imaging results, and discussions with consultants and/or family members. Differential Diagnosis Differential Diagnoses: The differential diagnosis associated with the presentation includes As above Admission/Observation Consideration of admission/observation: Escalation of care including admission/observation considered Lab Data [facility] Lab Attestation statement: I reviewed the patient's lab results. 02/14/23 17:59 02/14/23 17:59 Labs: Lab Results 02/14/23 02/14/23 02/14/23 Range/Units 13:53 13:53 17:59 WBC 8.5 (4.8-10.8) X10*3/uL RBC 4.39 (4.20-5.50) X10*6/uL Hgb 12.6 (12.0-16.0) g/dl Hct 39.2 (37.0-47.0) % MCV 89.3 (80.0-98.0) fL MCH 28.7 (27.0-33.0) pg MCHC 32.1 (31.0-35.0) g/dl RDW 13.9 (11.0-16.0) % Plt Count 360 (160-400) X10*3/uL MPV 9.3 L (9.4-12.3) fL Immature Gran % (Auto) 0.5 H (0.0-0.4) % Neut % (Auto) 68.8 (45-73) % Lymph % (Auto) 22.2 (20-40) % [place] % (Auto) 6.1 (2-11) % Eos % (Auto) 1.9 (0-4) % Baso % (Auto) 0.5 (0-2) % Lymph # (Auto) 1.9 (1.2-4.9) X10*3/uL [place] # (Auto) 0.5 (0.1-1.2) X10*3/uL Eos # (Auto) 0.2 (0.0-0.4) X10*3/uL Baso # (Auto) 0.0 (0.0-0.2) X10*3/uL Abs Immat Gran (auto) 0.04 H (0.00-0.03) X10*3/uL Absolute Neuts (auto) 5.9 (2.0-8.3) x10*3/uL Absolute Nucleated RBC 0.000 (0.0-0.012) X10*3/uL Nucleated RBC % (auto) 0.0 (0.0-0.2) /100WBC Sodium (135-145) mmol/L Potassium (3.3-5.1) mmol/L Chloride (96-108) mmol/L Carbon Dioxide (22-29) mmol/L Anion Gap (12-20) BUN (9-16) mg/dL Creatinine (0.5-1.4) mg/dL Estim Creat Clear Calc Estimated GFR Random Glucose (60-115) mg/dL Calcium (8.4-10.2) mg/dL Total Bilirubin (0.0-1.0) mg/dL Direct Bilirubin (0.0-0.5) mg/dL AST (5-31) U/L ALT (0-31) U/L Alkaline Phosphatase (39-117) U/L Total Protein (6.5-8.0) g/dL Albumin (3.5-5.0) g/dL Urine Color Dark Yellow Urine Appearance Cloudy Urine pH 7.5 (5.0-9.0) Ur Specific [place] >= 1.030 H (1.005-1.025) Urine Protein Trace (Neg-Trace) mg/dL Urine Glucose (UA) >=1000 H (Negative) mg/dL Urine Ketones Negative (Negative) mg/dL Urine Blood Negative (Negative) Urine Nitrite Positive H (Negative) Ur Leukocyte Esterase Small (1+) H (Negative) Urine RBC 11-20 H (0-2) /HPF Urine WBC 21-50 H (0-5) /HPF Ur Squamous Epith Cells 11-20 (0-2) /HPF Urine Bacteria 3+ (None Seen) Hyaline Casts 0-2 (0-2) /LPF Urine Test NEGATIVE (NEGATIVE) 02/14/23 Range/Units 17:59 WBC (4.8-10.8) X10*3/uL RBC (4.20-5.50) X10*6/uL Hgb (12.0-16.0) g/dl Hct (37.0-47.0) % MCV (80.0-98.0) fL MCH (27.0-33.0) pg MCHC (31.0-35.0) g/dl RDW (11.0-16.0) % Plt Count (160-400) X10*3/uL MPV (9.4-12.3) fL Immature Gran % (Auto) (0.0-0.4) % Neut % (Auto) (45-73) % Lymph % (Auto) (20-40) % [place] % (Auto) (2-11) % Eos % (Auto) (0-4) % Baso % (Auto) (0-2) % Lymph # (Auto) (1.2-4.9) X10*3/uL [place] # (Auto) (0.1-1.2) X10*3/uL Eos # (Auto) (0.0-0.4) X10*3/uL Baso # (Auto) (0.0-0.2) X10*3/uL Abs Immat Gran (auto) (0.00-0.03) X10*3/uL Absolute Neuts (auto) (2.0-8.3) x10*3/uL Absolute Nucleated RBC (0.0-0.012) X10*3/uL Nucleated RBC % (auto) (0.0-0.2) /100WBC Sodium 139 (135-145) mmol/L Potassium 4.1 (3.3-5.1) mmol/L Chloride 105 (96-108) mmol/L Carbon Dioxide 29 (22-29) mmol/L Anion Gap 9 L (12-20) BUN 8 L (9-16) mg/dL Creatinine 0.64 (0.5-1.4) mg/dL Estim Creat Clear Calc 151.1 Estimated GFR > 60 Random Glucose 169 H (60-115) mg/dL Calcium 9.3 (8.4-10.2) mg/dL Total Bilirubin 0.9 (0.0-1.0) mg/dL Direct Bilirubin 0.2 (0.0-0.5) mg/dL AST 9 (5-31) U/L ALT 9 (0-31) U/L Alkaline Phosphatase 83 (39-117) U/L Total Protein 7.3 (6.5-8.0) g/dL Albumin 4.0 (3.5-5.0) g/dL Urine Color Urine Appearance Urine pH (5.0-9.0) Ur Specific [place] (1.005-1.025) Urine Protein (Neg-Trace) mg/dL Urine Glucose (UA) (Negative) mg/dL Urine Ketones (Negative) mg/dL Urine Blood (Negative) Urine Nitrite (Negative) Ur Leukocyte Esterase (Negative) Urine RBC (0-2) /HPF Urine WBC (0-5) /HPF Ur Squamous Epith Cells (0-2) /HPF Urine Bacteria (None Seen) Hyaline Casts (0-2) /LPF Urine Test (NEGATIVE) Radiology Impression Discussion of test interpretation with radiology: I have reviewed the radiologist's reading. External Record Review External record reviewed: Inpatient record, Office record, Outpatient record, Prior outpatient labs, Prior outpatient radiology, Primary care record and Outside ED record Tests considered The following testing was considered but not selected: As above Prescription Management I considered prescription management with: Pain Medication and Antibiotic Discharge Plan Discharge Clinical Impression: Urinary tract infection Patient Disposition: Home, Self-Care Instructions: Urinary Tract Infection in Women (DC) Additional Instructions: You have a UTI. Ceftin is an antibiotic take as prescribed. Pyridium will help with urinary discomfort, this will turn your urine orange Make sure staying hydrated Follow-up with her doctor If symptoms persist or worsening of constant worsening abdominal pain, back pain, fever, or or difficulty urinating return to the ED Prescriptions: New cefuroxime axetil 250 mg tablet 250 mg PO BID 7 Days Qty: 14 0RF phenazopyridine [Pyridium] 200 mg tablet 200 mg PO TID PRN (Reason: pain) Qty: 6 0RF No Action cefpodoxime 200 mg tablet 200 mg PO BID Qty: 14 0RF Rx Instructions: must administer with a meal/food phenazopyridine [Pyridium] 200 mg tablet 200 mg PO TID 2 Days Qty: 6 0RF naproxen 500 mg tablet 500 mg PO BID PRN (Reason: pain) Qty: 14 0RF metaxalone 800 mg tablet 800 mg PO TID PRN (Reason: muscle pain) Qty: 14 0RF methylprednisolone [Medrol (Stas)] 4 mg tablets,dose pack 4 mg PO DAILY Qty: 21 0RF Referrals: Physician,Unknown J [Primary Care Provider] - Interventions: ED Discharge Assessment Last Done: 02/14/23 18:51 Discharge Date/Time: 02/14/23 18:52
[2023-02-14 14:07] LABS: Appearance Urine Cloudy; Color Urine Dark Yellow; Glucose Urine UA >=1000 mg/dL (Negative); Leukocyte Esterase Urine Small (1+) (Negative); Nitrite Urine Positive (Negative); PH 7.5 (5.0-9.0); Specific Gravity - Urine >= 1.030 (1.005-1.025); UMIC TRIGGER UACC YES; Urine Blood Negative (Negative); Urine Ketones Negative (Negative); Urine Protein Trace mg/dL (Neg-Trace)
[2023-02-14 14:16] LABS: Bacteria Urine 3+ (None Seen); Hyaline Casts Urine 0-2 /LPF (0-2); UACC Culture Trigger YES; WBC Urine 21-50 /HPF (0-5)
[2023-02-14 14:27] LABS: UPreg QC Valid YES; Urine Pregnancy NEGATIVE (NEGATIVE)
[2023-02-14] MEDS: Ketorolac Tromethamine 15 MG/ML VIAL IVPUSH (18:03)
[2023-02-14] MEDS: 0.9 % Sodium Chloride 1,000 ML 999 ML IV (18:04)
[2023-02-14 18:08] LABS: MANUAL DIFF FLAG NO
[2023-02-14 18:21] LABS: Basophils Percent Auto 0.5 % (0-2); Eosinophils Absolute Auto 0.2 X10*3/uL (0.0-0.4); Eosinophils Percent Auto 1.9 % (0-4); Hematocrit 39.2 % (37.0-47.0); Hemoglobin 12.6 g/dl (12.0-16.0); Imm Gran Abs Auto 0.04 X10*3/uL (0.00-0.03); Imm Gran Pct Auto 0.5 % (0.0-0.4); Lymphocytes Absolute Auto 1.9 X10*3/uL (1.2-4.9); Lymphocytes Percent Auto 22.2 % (20-40); Mean Corpuscular HGB Conc 32.1 g/dl (31.0-35.0); Mean Corpuscular Hemoglobin 28.7 pg (27.0-33.0); Mean Corpuscular Volume 89.3 fL (80.0-98.0); Mean Platelet Volume 9.3 fL (9.4-12.3); Monocytes Absolute Auto 0.5 X10*3/uL (0.1-1.2); Monocytes Percent Auto 6.1 % (2-11); Neutrophils Absolute Auto 5.9 x10*3/uL (2.0-8.3); Neutrophils Percent Auto 68.8 % (45-73); Platelet Count 360 X10*3/uL (160-400); Red Blood Count 4.39 X10*6/uL (4.20-5.50); Red Cell Distribution Width 13.9 % (11.0-16.0); White Blood Count 8.5 X10*3/uL (4.8-10.8)
[2023-02-14 18:22] LABS: Alanine Aminotransferase 9 U/L (0-31); Alkaline Phosphatase 83 U/L (39-117); Anion Gap 9 (12-20); Aspartate Amino Transferase 9 U/L (5-31); Bilirubin Direct 0.2 mg/dL (0.0-0.5); Bilirubin Total 0.9 mg/dL (0.0-1.0); Blood Urea Nitrogen 8 mg/dL (9-16); Calcium 9.3 mg/dL (8.4-10.2); Carbon Dioxide 29 mmol/L (22-29); Chloride 105 mmol/L (96-108); Creatinine Clr Calc Pharmacy 151.1; Estimated Glomerular Filt Rate > 60; Glucose Random 169 mg/dL (60-115); Potassium 4.1 mmol/L (3.3-5.1); Sodium 139 mmol/L (135-145); Total Protein 7.3 g/dL (6.5-8.0)
[2023-02-14 18:49] VITALS: BP 104/70; PULSE 88; RESP 16; TEMP 37.1; O2SAT 98
== END 2023-02-14 18:52 | disposition home or self-care (01) ==
PROVIDERS: Physician Assistant; Registered Nurse Emergency; Emergency Provider Emergency Medicine
DX: N39.0 Urinary tract infection, site not specified (principal); R10.9 Unspecified abdominal pain; Z79.899 Other long term (current) drug therapy
CPT/HCPCS: 36415; 76775; 80048; 80076; 81001; 81025; 85025; 87086; 87147; 87186; 96374; 99284; J1885

== ENCOUNTER 2023-03-22 20:05 | Emergency (ER) | payer MEDICAID, SELFPAY ==
[2023-03-22 20:15] VITALS: BP 126/79; PULSE 93; RESP 16; TEMP 37.1; O2SAT 98; BMI 38.5
--- NOTE | 2023-03-22 20:16 | ED.GENADULT ---
HPI - General Adult General Chief complaint: Urogenital-Female Stated complaint: Lower back pain/UTI symptoms Time Seen by Provider: 03/23/23 02:27 Source: patient Mode of arrival: ambulatory Limitations: no limitations History of Present Illness HPI narrative: Patient recurrent UTI last few years comes here for UTI symptoms since yesterday morning with frequency and dysuria and back pain no nausea no vomiting no fever or chills no vaginal discharge no abdominal pain no history of kidney stones Related Data Previous Rx's Medication Instructions Recorded cefpodoxime 200 mg tablet 200 mg PO BID #14 tabs 01/15/22 phenazopyridine 200 mg tablet 200 mg PO TID 2 days #6 tabs 01/15/22 (Pyridium) metaxalone 800 mg tablet 800 mg PO TID PRN muscle pain #14 12/07/22 tabs 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 #21 ea 12/07/22 a dose pack (Medrol (Stas)) naproxen 500 mg tablet 500 mg PO BID PRN pain #14 tabs 12/07/22 cefuroxime axetil 250 mg tablet 250 mg PO BID 7 days #14 tabs 02/14/23 phenazopyridine 200 mg tablet 200 mg PO TID PRN pain 6 doses #6 02/14/23 (Pyridium) tabs nitrofurantoin 100 mg PO Q12H 7 days #14 caps 02/19/23 monohydrate/macrocrystals 100 mg capsule (Macrobid) cefuroxime axetil 250 mg tablet 250 mg PO BID 7 days #14 tabs 03/23/23 ibuprofen 600 mg tablet 600 mg PO Q6H PRN fever or pain 03/23/23 #30 tabs phenazopyridine 200 mg tablet 200 mg PO TID 6 doses #6 tabs 03/23/23 (Pyridium) Allergies Allergy/AdvReac Type Severity Reaction Status Date / Time Penicillins Allergy Intermediate Swelling Verified 09/22/22 14:26 Review of Systems Review of Systems: Yes all other systems are reviewed and are negative PMFSH Past Medical History Medical History Diabetes type I Hyperthyroidism Social History Social History Alcohol intake: never Advance Directives: No Advance Directives Information Provided: No Physical Exam ED Vital Signs: Vital Signs - 24 hr 03/22/23 20:15 03/22/23 23:33 03/23/23 02:19 Temperature 98.7 F 98.9 F 98.1 F Pulse Rate 93 95 93 Respiratory Rate 16 16 Blood Pressure 126/79 105/71 129/79 Pulse Oximetry 98 99 98 Oxygen Delivery Method Room Air Room Air Room Air BMI result Body Mass Index 38.5 Appearance: Alert. Oriented X3. No acute distress. ENT: Pharynx normal. Oral Mucosa moist Neck: Normal inspection. Neck supple. CVS: Normal heart rate and rhythm. Pulses normal. Respiratory: No respiratory distress. Equal air entry bilateral, Abdomen: Soft and nontender. Bowel sounds are present, no mass palpable, no CVA tenderness Skin: Skin warm and dry. Normal skin color. Normal skin turgor. Extremities: No lower extremity edema. No calf tenderness Neuro: Oriented X 3. Course Course Course Narrative: RME performed by Yue Hodges PA-C. Patient is a 22 year old assigned female at presenting to the emergency department with UTI symptoms. Labs ordered. Patient placed back in the waiting room pending room availability and results. Medications Administered Discontinued Medications Generic Name Dose Route Start Last Admin Trade Name Freq PRN Reason Stop Dose Admin Cefuroxime Axetil 250 mg 03/23/23 02:28 03/23/23 02:35 Cefuroxime Axetil 250 Mg Tablet PO 03/23/23 02:29 250 mg ONCE ONE Administration Phenazopyridine HCl 200 mg 03/23/23 02:28 03/23/23 02:35 Phenazopyridine Hcl 200 Mg Tablet PO 03/23/23 02:29 200 mg ONCE ONE Administration Tramadol HCl 50 mg 03/23/23 02:59 03/23/23 03:20 Tramadol Hcl 50 Mg Tablet PO 03/23/23 03:00 50 mg ONCE ONE Administration Medical Decision Making Medical Decision Making [facility] Narrative: Patient on Coumadin UTI with previous E coli sensitive to Ceftin discharge patient on Ceftin advised for Urology for recurrent UTI Lab Data [facility] Lab Attestation statement: I reviewed the patient's lab results. Labs: Lab Results 03/22/23 Range/Units 20:51 Urine Color [place] Urine Appearance Hazy Urine pH 5.0 (5.0-9.0) Ur Specific [place] 1.015 (1.005-1.025) Urine Protein 100 (2+) H (Neg-Trace) mg/dL Urine Glucose (UA) 250 H (Negative) mg/dL Urine Ketones Trace (Negative) mg/dL Urine Blood Negative (Negative) Urine Nitrite Positive H (Negative) Ur Leukocyte Esterase Moderate (2+) H (Negative) Urine RBC 0-2 (0-2) /HPF Urine WBC 6-10 (0-5) /HPF Ur Squamous Epith Cells 0-2 (0-2) /HPF Urine Bacteria 1+ (None Seen) Hyaline Casts 0-2 (0-2) /LPF Discharge Plan Discharge Clinical Impression: Urinary tract infection Patient Disposition: Home, Self-Care Instructions: Urinary Tract Infection in Women (ED) Additional Instructions: Drink plenty of fluids Take antibiotic as prescribed Follow-up with urologist for further evaluation Prescriptions: New cefuroxime axetil 250 mg tablet 250 mg PO BID 7 Days Qty: 14 0RF phenazopyridine [Pyridium] 200 mg tablet 200 mg PO TID Qty: 6 0RF ibuprofen 600 mg tablet 600 mg PO Q6H PRN (Reason: fever or pain) Qty: 30 0RF No Action cefpodoxime 200 mg tablet 200 mg PO BID Qty: 14 0RF Rx Instructions: must administer with a meal/food phenazopyridine [Pyridium] 200 mg tablet 200 mg PO TID 2 Days Qty: 6 0RF naproxen 500 mg tablet 500 mg PO BID PRN (Reason: pain) Qty: 14 0RF metaxalone 800 mg tablet 800 mg PO TID PRN (Reason: muscle pain) Qty: 14 0RF methylprednisolone [Medrol (Stas)] 4 mg tablets,dose pack 4 mg PO DAILY Qty: 21 0RF cefuroxime axetil 250 mg tablet 250 mg PO BID 7 Days Qty: 14 0RF phenazopyridine [Pyridium] 200 mg tablet 200 mg PO TID PRN (Reason: pain) Qty: 6 0RF nitrofurantoin monohyd/m-cryst [Macrobid] 100 mg capsule 100 mg PO Q12H 7 Days Qty: 14 0RF Rx Instructions: must administer with a meal/food Interventions: ED Discharge Assessment Last Done: 03/23/23 03:21 Discharge Date/Time: 03/23/23 03:22
[2023-03-22 22:53] LABS: Appearance Urine Hazy; Color Urine Orange; Glucose Urine UA 250 mg/dL (Negative); Leukocyte Esterase Urine Moderate (2+) (Negative); Nitrite Urine Positive (Negative); Specific Gravity - Urine 1.015 (1.005-1.025); UMIC TRIGGER UACC YES; Urine Blood Negative (Negative); Urine Ketones Trace mg/dL (Negative); Urine Protein 100 (2+) mg/dL (Neg-Trace)
[2023-03-22 22:55] LABS: Bacteria Urine 1+ (None Seen); Hyaline Casts Urine 0-2 /LPF (0-2); RBC Urine 0-2 /HPF (0-2); Squamous Epithelial Cell Urine 0-2 /HPF (0-2); UACC Culture Trigger YES
[2023-03-22 23:33] VITALS: BP 105/71; PULSE 95; TEMP 37.2; O2SAT 99
[2023-03-23 02:19] VITALS: BP 129/79; PULSE 93; RESP 16; TEMP 36.7; O2SAT 98
[2023-03-23] MEDS: Phenazopyridine HCL 200 MG TABLET PO (02:35)
[2023-03-23] MEDS: traMADoL HCL 50 MG TABLET PO (03:20)
== END 2023-03-23 03:22 | disposition home or self-care (01) ==
PROVIDERS: Physician Assistant Medical; Emergency Provider Internal Medicine
DX: N39.0 Urinary tract infection, site not specified (principal); E10.9 Type 1 diabetes mellitus without complications
CPT/HCPCS: 81001; 81003; 87086; 87147; 99283

== ENCOUNTER 2023-04-17 13:53 | Emergency (ER) | payer MEDICAID, SELFPAY ==
[2023-04-17 14:08] VITALS: BP 133/71; PULSE 98; RESP 19; TEMP 36.6; O2SAT 98; BMI 39.4
--- NOTE | 2023-04-17 14:10 | ED_ITS ---
HPI - General Adult General Chief complaint: Urogenital-Female Stated complaint: UTI Symptoms Time Seen by Provider: 04/17/23 15:38 Source: patient Mode of arrival: ambulatory Limitations: no limitations History of Present Illness HPI narrative: 22-year-old female with history of type 1 diabetes presents to the ER for evaluation of increased urinary frequency, urgency and dysuria for the last 2 days. She reports history of frequent UTIs. Last had sex yesterday without pain. No vaginal discharge. No concern for STI. No N/V/D or abdominal pain. She does report low back pain, worse on the left. 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 #21 ea 12/07/22 a dose pack (Medrol (Stas)) naproxen 500 mg tablet 500 mg PO BID PRN pain #14 tabs 12/07/22 cefuroxime axetil 250 mg tablet 250 mg PO BID 7 days #14 tabs 02/14/23 phenazopyridine 200 mg tablet 200 mg PO TID PRN pain 6 doses #6 02/14/23 (Pyridium) tabs nitrofurantoin 100 mg PO Q12H 7 days #14 caps 02/19/23 monohydrate/macrocrystals 100 mg capsule (Macrobid) cefuroxime axetil 250 mg tablet 250 mg PO BID 7 days #14 tabs 03/23/23 ibuprofen 600 mg tablet 600 mg PO Q6H PRN fever or pain 03/23/23 #30 tabs phenazopyridine 200 mg tablet 200 mg PO TID 6 doses #6 tabs 03/23/23 (Pyridium) cefuroxime axetil 250 mg tablet 250 mg PO BID 7 days #14 tabs 04/17/23 Allergies Allergy/AdvReac Type Severity Reaction Status Date / Time Penicillins Allergy Intermediate Swelling Verified 04/17/23 14:07 Review of Systems Review of Systems: Yes all other systems are reviewed and are negative FORMERLY [facility], [facility] Past Medical History Medical History Diabetes type I Hyperthyroidism Social History Social History Alcohol intake: never Advance Directives: No Advance Directives Information Provided: No Physical Exam ED Vital Signs: Vital Signs - 24 hr 04/17/23 14:08 04/17/23 15:46 Temperature 98 F Pulse Rate 98 107 H Respiratory Rate 19 18 Blood Pressure 133/71 119/82 Pulse Oximetry 98 96 BMI result Body Mass Index 39.4 Appearance: Alert. Oriented X3. No acute distress. Head: normocephalic, atraumatic. Eyes: Pupils equal, round and reactive to light. ENT: Pharynx normal. No tonsillar swelling or exudate. Neck: Normal inspection. Neck supple. CVS: Normal heart rate and rhythm. Pulses normal. Respiratory: No respiratory distress. Breath sounds normal. Abdomen: Obese Soft mild suprapubic tenderness without rebound or guarding +BS x4 Skin: Skin warm and dry. Normal skin color. Normal skin turgor. No rashes. Extremities: No lower extremity edema. No joint swelling. Neuro/psych: Oriented X 3. grossly normal, nonfocal Normal speech and cognition. Course Course Course Narrative: RME- 22 year old female presents for evaluation of frequent urination and lower abdominal pressure. Reports frequent UTIs. Patient denies any abnormal vaginal bleeding or discharge. Plan for UA Medical Decision Making Medical Decision Making MDM Narrative: 22-year-old female with history of frequent UTIs, type 1 diabetes who presents to the ER for evaluation of UTI symptoms that started yesterday. She states her blood glucose has been all over the place but she has been compliant with her insulin. No fevers, chills, nausea, vomiting, diarrhea. No polydipsia or polyuria. No CVA tenderness on examination. She is afebrile on arrival. Urinalysis is positive for infection. Negative for . No STI symptoms, declined pelvic examination today. Will start on antibiotics and have her follow up with primary care doctor. Return precautions discussed. Stable for discharge home Differential Diagnosis Differential Diagnoses: The differential diagnosis associated with the presentation includes UTI, pyelonephritis, STI, BV, cystitis Lab Data MDM Lab Attestation statement: I reviewed the patient's lab results. Labs: Lab Results 04/17/23 Range/Units 15:01 Urine Color Dark Yellow Urine Appearance Clear Urine pH 7.0 (5.0-9.0) Ur Specific [place] >= 1.030 H (1.005-1.025) Urine Protein Negative (Neg-Trace) mg/dL Urine Glucose (UA) >=1000 H (Negative) mg/dL Urine Ketones Negative (Negative) mg/dL Urine Blood Negative (Negative) Urine Nitrite Positive H (Negative) Ur Leukocyte Esterase Trace H (Negative) Urine RBC 0-2 (0-2) /HPF Urine WBC 11-20 H (0-5) /HPF Ur Squamous Epith Cells 6-10 (0-2) /HPF Urine Bacteria 3+ (None Seen) Hyaline Casts 0-2 (0-2) /LPF Urine Test NEGATIVE (NEGATIVE) External Record Review External record reviewed: Outpatient record and Prior outpatient labs Prescription Management I considered prescription management with: Pain Medication and Antibiotic Chronic Conditions Patient?s care impacted by: Diabetes Critical Care Time Critical Care Time Critical Care Time: No Discharge Plan Discharge Clinical Impression: Urinary tract infection Qualifiers: Urinary tract infection type: acute cystitis Hematuria presence: without hematuria Qualified Code(s): N30.00 - Acute cystitis without hematuria Patient Disposition: Home, Self-Care Instructions: Urinary Tract Infection in Women (DC) Additional Instructions: Your urine test showed infection. Was negative for . Take the prescribed antibiotics as directed, complete the entire course and do not miss any doses Drink plenty of water. No sexual activity until your off antibiotics and all of your symptoms are completely resolved. Follow-up with your doctor as needed. If you develop new or worsening symptoms call 911 or come back to the ER for further evaluation. Prescriptions: New cefuroxime axetil 250 mg tablet 250 mg PO BID 7 Days Qty: 14 0RF No Action cefpodoxime 200 mg tablet 200 mg PO BID Qty: 14 0RF Rx Instructions: must administer with a meal/food phenazopyridine [Pyridium] 200 mg tablet 200 mg PO TID 2 Days Qty: 6 0RF cefuroxime axetil 250 mg tablet 250 mg PO BID 7 Days Qty: 14 0RF phenazopyridine [Pyridium] 200 mg tablet 200 mg PO TID Qty: 6 0RF ibuprofen 600 mg tablet 600 mg PO Q6H PRN (Reason: fever or pain) Qty: 30 0RF naproxen 500 mg tablet 500 mg PO BID PRN (Reason: pain) Qty: 14 0RF metaxalone 800 mg tablet 800 mg PO TID PRN (Reason: muscle pain) Qty: 14 0RF methylprednisolone [Medrol (Stas)] 4 mg tablets,dose pack 4 mg PO DAILY Qty: 21 0RF cefuroxime axetil 250 mg tablet 250 mg PO BID 7 Days Qty: 14 0RF phenazopyridine [Pyridium] 200 mg tablet 200 mg PO TID PRN (Reason: pain) Qty: 6 0RF nitrofurantoin monohyd/m-cryst [Macrobid] 100 mg capsule 100 mg PO Q12H 7 Days Qty: 14 0RF Rx Instructions: must administer with a meal/food Referrals: [facility] [Primary Care Provider] - Interventions: ED Discharge Assessment Last Done: 04/17/23 17:04 Discharge Date/Time: 04/17/23 17:04
[2023-04-17 15:31] LABS: Appearance Urine Clear; Color Urine Dark Yellow; Glucose Urine UA >=1000 mg/dL (Negative); Leukocyte Esterase Urine Trace (Negative); Nitrite Urine Positive (Negative); Specific Gravity - Urine >= 1.030 (1.005-1.025); UMIC TRIGGER UACC YES; Urine Blood Negative (Negative); Urine Ketones Negative (Negative); Urine Protein Negative (Neg-Trace)
[2023-04-17 15:46] VITALS: BP 119/82; PULSE 107; RESP 18; O2SAT 96
[2023-04-17 16:33] LABS: UPreg QC Valid YES; Urine Pregnancy NEGATIVE (NEGATIVE)
[2023-04-17 16:42] LABS: RBC Urine 0-2 /HPF (0-2); UACC Culture Trigger YES
[2023-04-17 16:43] LABS: Bacteria Urine 3+ (None Seen); Hyaline Casts Urine 0-2 /LPF (0-2)
== END 2023-04-17 17:04 | disposition home or self-care (01) ==
PROVIDERS: Physician Assistant; Emergency Provider Internal Medicine
DX: N30.00 Acute cystitis without hematuria (principal); R30.0 Dysuria; E10.9 Type 1 diabetes mellitus without complications; Z79.899 Other long term (current) drug therapy
CPT/HCPCS: 81001; 81025; 87086; 87088; 87147; 87186; 99283

== ENCOUNTER 2023-06-04 12:52 | Emergency (ER) | payer MEDICAID, SELFPAY ==
[2023-06-04 12:54] VITALS: BP 142/116; PULSE 96; RESP 15; TEMP 35.6; BMI 40.7
--- NOTE | 2023-06-04 12:54 | ED.DENTAL ---
HPI - Dental/Oral General Chief complaint: Dental/Oral Stated complaint: Dental Infection Time Seen by Provider: 06/04/23 13:05 Source: patient, RN notes reviewed and old records reviewed Mode of arrival: ambulatory History of Present Illness HPI Narrative: 22 year old female with PMHx dental extraction on Saturday (05/31) presenting to the ED c/o continued right sided dental pain and facial swelling radiating to right ear since extraction. Admits swelling is not worsening however is persistent. Is currently taking Clindamycin since procedure and Tylenol #3 without relief. States she did not call the dentist for follow up. 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 #21 ea 12/07/22 a dose pack (Medrol (Stas)) naproxen 500 mg tablet 500 mg PO BID PRN pain #14 tabs 12/07/22 cefuroxime axetil 250 mg tablet 250 mg PO BID 7 days #14 tabs 02/14/23 phenazopyridine 200 mg tablet 200 mg PO TID PRN pain 6 doses #6 02/14/23 (Pyridium) tabs nitrofurantoin 100 mg PO Q12H 7 days #14 caps 02/19/23 monohydrate/macrocrystals 100 mg capsule (Macrobid) cefuroxime axetil 250 mg tablet 250 mg PO BID 7 days #14 tabs 03/23/23 ibuprofen 600 mg tablet 600 mg PO Q6H PRN fever or pain 03/23/23 #30 tabs phenazopyridine 200 mg tablet 200 mg PO TID 6 doses #6 tabs 03/23/23 (Pyridium) cefuroxime axetil 250 mg tablet 250 mg PO BID 7 days #14 tabs 04/17/23 nitrofurantoin 100 mg PO Q12H 5 days #10 caps 04/22/23 monohydrate/macrocrystals 100 mg capsule (Macrobid) Allergies Allergy/AdvReac Type Severity Reaction Status Date / Time Penicillins Allergy Intermediate Swelling Verified 04/17/23 14:07 Review of Systems Review of Systems: Constitutional: No Fever, No Chills ENT/Mouth: +facial swelling, +dental pain, No Ear Pain, No Nasal Congestion, No Hoarseness, No sore throat, No Rhinorrhea, No Swallowing Difficulty Cardiovascular: No Chest Pain, No SOB Respiratory: No Cough, No Sputum, No Wheezing Gastrointestinal: No Nausea, No Vomiting, No Abdominal pain Musculoskeletal: No joint pain, No Myalgias, No Joint Swelling Skin: No Skin Lesions, No rash Neuro: No Weakness Yes all other systems are reviewed and are negative Constitutional: Constitutional: Reports as per [facility] Past Medical History Attestation statement: The following information was validated with the patient. Source: old records reviewed Medical History Hyperthyroidism Diabetes type I Social History Social History Alcohol intake: never Physical Exam Vital Signs: Vital Signs: Last Vital Signs Temp 96.0 F L 06/04/23 12:54 Pulse 96 06/04/23 12:54 Resp 15 06/04/23 12:54 BP 142/116 H 06/04/23 12:54 O2 Del Method Room Air 06/04/23 12:54 BMI result Body Mass Index 40.7 Const: General: cooperative, healthy appearing and no acute distress Orientation/consciousness: patient oriented x3 Limitations: no limitations HEENT: Other: +mild right sided facial swelling noted. right upper 2nd molar extracted with sutures in place. Mild erythema and swelling, with appropriate wound healing. Tender to palpation. No fluctuance/induration or drainage. Talking in complete sentences, no respiratory distress. Head: Yes normal to inspection and Yes atraumatic Ears: hearing grossly normal bilaterally, TM's normal bilaterally, mastoids normal and unable to visualize TM on the right (Cerumen impaction partially cleared with curette) General nose exam: Normal external nose present Face and sinus: No fluctuance Mouth: no drooling Throat: Yes uvula midline, No uvula laterally displaced and No uvular edema Eyes: General: appearance normal, both eyes and all related structures EOM: EOMs intact bilaterally Neck: Neck: Yes normal visual inspection, Yes no meningeal signs, Yes supple, No anterior neck swelling and No torticollis Resp: Effort & Inspection: normal respiratory effort, no respiratory distress and no stridor Cardio: Rate: regular rate Skin: Rashes: no rashes Wounds: no wounds Neuro: General: patient oriented x3, tone normal and no meningeal signs Cranial nerves: Yes CN's II-XII intact bilaterally Gait exam (Neuro): Normal gait present Extrem: General: Yes normal to inspection Medications Administered Discontinued Medications Generic Name Dose Route Start Last Admin Trade Name Freq PRN Reason Stop Dose Admin Oxycodone HCl 5 mg 06/04/23 13:05 06/04/23 13:08 Oxycodone Hcl Immed Release 5 Mg Tablet PO 06/04/23 13:06 5 mg ONCE ONE Administration Medical Decision Making Medical Decision Making MDM Narrative: 22 year old female with PMHx dental extraction on Saturday (05/31) presenting to the ED c/o continued right sided dental pain and facial swelling radiating to right ear since extraction. On exam hypertensive likely from pain, NAD, nontoxic-appearing, physical exam as above with mild right-sided facial swelling an appropriately healing right upper molar extraction with mild erythema and tenderness. No fluctuance/induration or necrosis. Patient already on appropriate antibiotic treatment and with opiate pain control at home. Recommended to call dentist that extracted tooth for very close follow-up. No evidence of abscess or otitis or retropharyngeal abscess/OPERATIONS INTERN Will give dose of p.o. doxy in the ED and re-evaluate -1321--repeat blood pressure 117/68 after medication given. Please refer to course for remaining clinical decision making, interpretation of labs/imaging results, and discussions with consultants and/or family members. Differential Diagnosis Differential Diagnoses: The differential diagnosis associated with the presentation includes As above External Record Review External record reviewed: Inpatient record, Office record, Outpatient record, Prior outpatient labs, Prior outpatient radiology, Primary care record and Outside ED record Tests considered The following testing was considered but not selected: As above Prescription Management I considered prescription management with: Pain Medication Discharge Plan Discharge Clinical Impression: Toothache Patient Disposition: Home, Self-Care Instructions: Toothache (ED) Additional Instructions: Continue taking previously prescribed antibiotic and pain medication It is very important for you to call the dentist extracted her tooth for close follow-up If symptoms persist or worsen, you are unable to eat or drink/swallow have worsening facial swelling, drainage from her mouth or fever return to the ED Prescriptions: No Action cefpodoxime 200 mg tablet 200 mg PO BID Qty: 14 0RF Rx Instructions: must administer with a meal/food phenazopyridine [Pyridium] 200 mg tablet 200 mg PO TID 2 Days Qty: 6 0RF cefuroxime axetil 250 mg tablet 250 mg PO BID 7 Days Qty: 14 0RF phenazopyridine [Pyridium] 200 mg tablet 200 mg PO TID Qty: 6 0RF ibuprofen 600 mg tablet 600 mg PO Q6H PRN (Reason: fever or pain) Qty: 30 0RF naproxen 500 mg tablet 500 mg PO BID PRN (Reason: pain) Qty: 14 0RF metaxalone 800 mg tablet 800 mg PO TID PRN (Reason: muscle pain) Qty: 14 0RF methylprednisolone [Medrol (Stas)] 4 mg tablets,dose pack 4 mg PO DAILY Qty: 21 0RF cefuroxime axetil 250 mg tablet 250 mg PO BID 7 Days Qty: 14 0RF phenazopyridine [Pyridium] 200 mg tablet 200 mg PO TID PRN (Reason: pain) Qty: 6 0RF nitrofurantoin monohyd/m-cryst [Macrobid] 100 mg capsule 100 mg PO Q12H 7 Days Qty: 14 0RF Rx Instructions: must administer with a meal/food cefuroxime axetil 250 mg tablet 250 mg PO BID 7 Days Qty: 14 0RF nitrofurantoin monohyd/m-cryst [Macrobid] 100 mg capsule 100 mg PO Q12H 5 Days Qty: 10 0RF Rx Instructions: must administer with a meal/food Referrals: [facility] [Primary Care Provider] -
[2023-06-04] MEDS: oxyCODONE HCl Immed Release 5 MG TABLET PO (13:08)
[2023-06-04 13:24] VITALS: BP 117/68
== END 2023-06-04 13:25 | disposition home or self-care (01) ==
PROVIDERS: Emergency Provider Emergency Medicine
DX: K08.89 Other specified disorders of teeth and supporting structures (principal); E10.9 Type 1 diabetes mellitus without complications; Z79.899 Other long term (current) drug therapy
CPT/HCPCS: 99283

== ENCOUNTER 2023-07-14 09:43 | Emergency (ER) | payer MEDICAID, SELFPAY ==
--- NOTE | 2023-07-14 09:49 | ECG_ITS ---
Test Reason : SEIZURE Blood Pressure : / mmHG Vent. Rate : 107 BPM Atrial Rate : 107 BPM P-R Int : 162 ms QRS Dur : 088 ms QT Int : 360 ms P-R-T Axes : 057 049 030 degrees QTc Int : 480 ms Sinus tachycardia Otherwise normal ECG When compared with ECG of 15-JAN-2022 18:50, No significant change was found Referred By: Shelly Pederson Electronically Signed By:Bam Verma
[2023-07-14 09:54] VITALS: BP 114/65; BP 140/76; PULSE 108; PULSE 120; RESP 18; TEMP 36.8; O2SAT 96; BMI 41.0
[2023-07-14 09:56] LABS: Glucose, Whole Blood 79 mg/dL (60-115)
--- NOTE | 2023-07-14 09:59 | ED.SEIZURE ---
HPI - Seizure General Chief Complaint: Seizure Stated Complaint: SEIZURE History of Present Illness HPI Narrative: Patient is a 22-year-old female patient had a witnessed seizure noted by the boyfriend. Patient was not feeling well at that time. Usually when patient has a seizure is caused by having low sugar. Patient was feeling weak family was giving patient has some soda to drink when she actually had a seizure that time. It appears to be tonic clonic as patient had jerking movement in arm and leg was not responsive was very lethargic afterwards the seizure was noted to be a very brief duration. Patient on EMS arrival had a sugar in the 70s. Last time patient had this was 2-3 years ago. 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 #21 ea 12/07/22 a dose pack (Medrol (Stas)) naproxen 500 mg tablet 500 mg PO BID PRN pain #14 tabs 12/07/22 cefuroxime axetil 250 mg tablet 250 mg PO BID 7 days #14 tabs 02/14/23 phenazopyridine 200 mg tablet 200 mg PO TID PRN pain 6 doses #6 02/14/23 (Pyridium) tabs nitrofurantoin 100 mg PO Q12H 7 days #14 caps 02/19/23 monohydrate/macrocrystals 100 mg capsule (Macrobid) cefuroxime axetil 250 mg tablet 250 mg PO BID 7 days #14 tabs 03/23/23 ibuprofen 600 mg tablet 600 mg PO Q6H PRN fever or pain 03/23/23 #30 tabs phenazopyridine 200 mg tablet 200 mg PO TID 6 doses #6 tabs 03/23/23 (Pyridium) cefuroxime axetil 250 mg tablet 250 mg PO BID 7 days #14 tabs 04/17/23 nitrofurantoin 100 mg PO Q12H 5 days #10 caps 04/22/23 monohydrate/macrocrystals 100 mg capsule (Macrobid) Allergies Allergy/AdvReac Type Severity Reaction Status Date / Time Penicillins Allergy Intermediate Swelling Verified 04/17/23 14:07 mushroom Allergy Swelling Verified 07/14/23 09:54 Review of Systems Review of Systems: No fever no chills no chest pain or shortness breath no diaphoresis Yes all other systems are reviewed and are negative [facility] Past Medical History Medical History Hyperthyroidism Diabetes type I Social History Social History Alcohol intake: never Smoked in Last 30 Days: No Advance Directives: No Advance Directives Information Provided: No Patient : No Physical Exam Vital Signs: Vital Signs: Last Vital Signs Temp 98.2 F 07/14/23 09:54 Pulse 108 H 07/14/23 09:54 Resp 18 07/14/23 09:54 BP 114/65 07/14/23 09:54 Pulse Ox 96 07/14/23 09:54 O2 Del Method Room Air 07/14/23 09:54 BMI result Body Mass Index 41.0 Appearance: Alert. Oriented X3. No acute distress. Eyes: Pupils equal, round and reactive to light. ENT: Pharynx normal. Neck: Normal inspection. Neck supple. No lymph nodes noted. No crepitus CVS: Normal heart rate and rhythm. Pulses normal. Normal S1 and S2 Respiratory: No respiratory distress. Breath sounds normal. No Wheezing. No rales Abdomen: Soft and nontender. No rigidity. No distention. good BS x4 Skin: Skin warm and dry. Normal skin color. Normal skin turgor. Extremities: No lower extremity edema. Neurovascular intact to all extremities. No Lacerations. No Rash Neuro: Oriented X 3. No motor deficit. No sensory deficit. Moving all extermities. No slurred speech Medications Administered Discontinued Medications Generic Name Dose Route Start Last Admin Trade Name Freq PRN Reason Stop Dose Admin Sodium Chloride 1,000 mls @ 999 mls/hr 07/14/23 10:00 07/14/23 10:00 Ns IV 07/14/23 11:00 999 mls/hr .Q1H1M ELVIRA Administration Medical Decision Making Medical Decision Making MDM Narrative: Patient well appearing no acute distress. Sugar was in the 70s when EMS however patient's sugar likely much lower has some soda was given to patient prior. Electrolytes unremarkable she clinically appears well my interpretation patient's EKG showed a sinus rhythm heart rate is 100 [place] QRS QTC within normal limits as no acute ST segment elevation patient in no distress. Maintain her sugar. Her lecture lytes were checked. Her status is negative. There is no evidence for anemia. Patient patient's electrolytes are normal. Sugar is maintaining at this point. Patient's seizure most likely secondary to hypoglycemia during this episode. Will discharge patient home there is no signs a head injury neurologically back to baseline Differential Diagnosis Differential Diagnoses: The differential diagnosis associated with the presentation includes Hypoglycemia, seizure Admission/Observation Consideration of admission/observation: Escalation of care including admission/observation considered Not eat it as patient's symptoms completely resolved Lab Data MDM Lab Attestation statement: I reviewed the patient's lab results. 07/14/23 10:56 07/14/23 10:56 Labs: Lab Results 07/14/23 07/14/23 07/14/23 Range/Units 09:52 10:56 11:40 WBC 8.1 (4.8-10.8) X10*3/uL RBC 4.25 (4.20-5.50) X10*6/uL Hgb 11.9 L (12.0-16.0) g/dl Hct 36.6 L (37.0-47.0) % MCV 86.1 (80.0-98.0) fL MCH 28.0 (27.0-33.0) pg MCHC 32.5 (31.0-35.0) g/dl RDW 13.3 (11.0-16.0) % Plt Count 328 (160-400) X10*3/uL MPV 8.8 L (9.4-12.3) fL Immature Gran % (Auto) 0.4 (0.0-0.4) % Neut % (Auto) 77.1 H (45-73) % Lymph % (Auto) 14.5 L (20-40) % [place] % (Auto) 6.0 (2-11) % Eos % (Auto) 1.6 (0-4) % Baso % (Auto) 0.4 (0-2) % Lymph # (Auto) 1.2 (1.2-4.9) X10*3/uL [place] # (Auto) 0.5 (0.1-1.2) X10*3/uL Eos # (Auto) 0.1 (0.0-0.4) X10*3/uL Baso # (Auto) 0.0 (0.0-0.2) X10*3/uL Abs Immat Gran (auto) 0.03 (0.00-0.03) X10*3/uL Absolute Neuts (auto) 6.3 (2.0-8.3) x10*3/uL Absolute Nucleated RBC 0.000 (0.0-0.012) X10*3/uL Nucleated RBC % (auto) 0.0 (0.0-0.2) /100WBC Sodium 140 (135-145) mmol/L Potassium 3.9 (3.3-5.1) mmol/L Chloride 109 H (96-108) mmol/L Carbon Dioxide 22 (22-29) mmol/L Anion Gap 13 (12-20) BUN 10 (9-16) mg/dL Creatinine 0.68 (0.5-1.4) mg/dL Estim Creat Clear Calc 147.9 Estimated GFR > 60 POC Glucose 79 169 H (60-115) mg/dL Random Glucose 125 H (60-115) mg/dL Calcium 8.7 D (8.4-10.2) mg/dL Total Bilirubin 0.4 (0.0-1.0) mg/dL Direct Bilirubin 0.1 (0.0-0.5) mg/dL AST 14 (5-31) U/L ALT 10 (0-31) U/L Alkaline Phosphatase 73 (39-117) U/L Total Protein 6.9 (6.5-8.0) g/dL Albumin 3.8 (3.5-5.0) g/dL Beta HCG, Quant < 2 mIU/mL Independent Interpretation I performed an independent interpretation of an: EKG (Sinus heart rate is 100 [place] QRS QTC within normal limits with no acute ST segment elevation) Independent Historian Clinical information obtained from an independent historian. History obtained from or confirmed by: Spouse Chronic Conditions Patient?s care impacted by: Diabetes Discharge Plan Discharge Clinical Impression: Generalized seizure, Hypoglycemia Patient Disposition: Home, Self-Care Instructions: Recurrent Seizures in Adults (ED), Diabetes and Your Mouth (ED) Prescriptions: No Action cefpodoxime 200 mg tablet 200 mg PO BID Qty: 14 0RF Rx Instructions: must administer with a meal/food phenazopyridine [Pyridium] 200 mg tablet 200 mg PO TID 2 Days Qty: 6 0RF cefuroxime axetil 250 mg tablet 250 mg PO BID 7 Days Qty: 14 0RF phenazopyridine [Pyridium] 200 mg tablet 200 mg PO TID Qty: 6 0RF ibuprofen 600 mg tablet 600 mg PO Q6H PRN (Reason: fever or pain) Qty: 30 0RF naproxen 500 mg tablet 500 mg PO BID PRN (Reason: pain) Qty: 14 0RF metaxalone 800 mg tablet 800 mg PO TID PRN (Reason: muscle pain) Qty: 14 0RF methylprednisolone [Medrol (Stas)] 4 mg tablets,dose pack 4 mg PO DAILY Qty: 21 0RF cefuroxime axetil 250 mg tablet 250 mg PO BID 7 Days Qty: 14 0RF phenazopyridine [Pyridium] 200 mg tablet 200 mg PO TID PRN (Reason: pain) Qty: 6 0RF nitrofurantoin monohyd/m-cryst [Macrobid] 100 mg capsule 100 mg PO Q12H 7 Days Qty: 14 0RF Rx Instructions: must administer with a meal/food cefuroxime axetil 250 mg tablet 250 mg PO BID 7 Days Qty: 14 0RF nitrofurantoin monohyd/m-cryst [Macrobid] 100 mg capsule 100 mg PO Q12H 5 Days Qty: 10 0RF Rx Instructions: must administer with a meal/food Referrals: [facility] [Primary Care Provider] - 07/16/23
[2023-07-14] MEDS: 0.9 % Sodium Chloride 1,000 ML 999 ML IV (10:00)
--- NOTE | 2023-07-14 10:01 | PC.NURSE ---
brought OJ, sandwich, cheese and crackers with md permission pt is alert enought to eat/drink. ST onmonitor. skin pwd.
--- NOTE | 2023-07-14 10:04 | PC.NURSE ---
boyfriend describing sz activity. states that just before sz started when patient felt shaky he gave soda.
--- NOTE | 2023-07-14 10:49 | PC.NURSE ---
remains alert. sitting upright talking with boyfriend. awaits labs drawn
[2023-07-14 10:59] LABS: MANUAL DIFF FLAG NO
[2023-07-14 11:03] LABS: Basophils Percent Auto 0.4 % (0-2); Eosinophils Absolute Auto 0.1 X10*3/uL (0.0-0.4); Eosinophils Percent Auto 1.6 % (0-4); Hematocrit 36.6 % (37.0-47.0); Hemoglobin 11.9 g/dl (12.0-16.0); Imm Gran Abs Auto 0.03 X10*3/uL (0.00-0.03); Imm Gran Pct Auto 0.4 % (0.0-0.4); Lymphocytes Absolute Auto 1.2 X10*3/uL (1.2-4.9); Lymphocytes Percent Auto 14.5 % (20-40); Mean Corpuscular HGB Conc 32.5 g/dl (31.0-35.0); Mean Corpuscular Volume 86.1 fL (80.0-98.0); Mean Platelet Volume 8.8 fL (9.4-12.3); Monocytes Absolute Auto 0.5 X10*3/uL (0.1-1.2); Neutrophils Absolute Auto 6.3 x10*3/uL (2.0-8.3); Neutrophils Percent Auto 77.1 % (45-73); Platelet Count 328 X10*3/uL (160-400); Red Blood Count 4.25 X10*6/uL (4.20-5.50); Red Cell Distribution Width 13.3 % (11.0-16.0); White Blood Count 8.1 X10*3/uL (4.8-10.8)
[2023-07-14 11:22] LABS: Alanine Aminotransferase 10 U/L (0-31); Albumin Level 3.8 g/dL (3.5-5.0); Alkaline Phosphatase 73 U/L (39-117); Anion Gap 13 (12-20); Aspartate Amino Transferase 14 U/L (5-31); Bilirubin Direct 0.1 mg/dL (0.0-0.5); Bilirubin Total 0.4 mg/dL (0.0-1.0); Blood Urea Nitrogen 10 mg/dL (9-16); Calcium 8.7 mg/dL (8.4-10.2); Carbon Dioxide 22 mmol/L (22-29); Chloride 109 mmol/L (96-108); Creatinine Clr Calc Pharmacy 147.9; Estimated Glomerular Filt Rate > 60; Glucose Random 125 mg/dL (60-115); HCG Quantitative < 2 mIU/mL; Potassium 3.9 mmol/L (3.3-5.1); Sodium 140 mmol/L (135-145); Total Protein 6.9 g/dL (6.5-8.0)
[2023-07-14 11:44] LABS: Glucose, Whole Blood 169 mg/dL (60-115)
== END 2023-07-14 12:19 | disposition home or self-care (01) ==
PROVIDERS: Emergency Provider Emergency Medicine Emergency Medical Services
DX: E10.649 Type 1 diabetes mellitus with hypoglycemia without coma (principal); G40.409 Other generalized epilepsy and epileptic syndromes, not intractable, without status epilepticus
CPT/HCPCS: 36415; 80048; 80076; 82947; 84702; 85025; 93005; 99283; 99284

== ENCOUNTER → 2023-07-14 09:49 | Outpatient (BNV) | payer MEDICAID, SELFPAY | PROVIDERS: Emergency Provider Emergency Medicine Emergency Medical Services; Visit Provider Internal Medicine Cardiovascular Disease | DX: R00.0 Tachycardia, unspecified (principal) | CPT/HCPCS: 93010 ==

== ENCOUNTER 2024-06-09 04:04 | Emergency (ER) | payer MEDICAID, SELFPAY ==
--- NOTE | ~2024-06-09 | XR_ITS ---
EXAMINATION: XR HAND, LEFT CLINICAL INFORMATION: Dog bite, rule out foreign body. COMPARISON: None available. TECHNIQUE: PA, lateral, and oblique views of the left hand. FINDINGS: Bone mineralization is normal. Joint spaces and alignment are preserved. XR/XR hand LT 2V IMPRESSION: No displaced fracture. Correlation with clinical exam recommended to determine further management given history of dog bite. This study was presented today June 09, 2024 for interpretation. Stat results provided at this time as requested by referring provider. Electronically signed by: Caprice Olvera MD 06/09/2024 08:35 AM SOF[facility]
[2024-06-09 04:09] VITALS: BP 119/78; PULSE 91; RESP 18; TEMP 36.7; O2SAT 97; BMI 40.8
--- NOTE | 2024-06-09 04:32 | ED.ANIMALBIT ---
HPI - Animal Bite General Chief Complaint: Animal Bite Stated Complaint: dog bite Time Seen by Provider: 06/09/24 04:37 Source: patient and family Mode of arrival: ambulatory Limitations: no limitations History of Present Illness ED Provider: DR. Deshpande HPI narrative: A 23-year-old female was bitten by a random unknown dog to her left hand at 19:00. 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 #21 ea 12/07/22 a dose pack (Medrol (Stas)) naproxen 500 mg tablet 500 mg PO BID PRN pain #14 tabs 12/07/22 cefuroxime axetil 250 mg tablet 250 mg PO BID 7 days #14 tabs 02/14/23 phenazopyridine 200 mg tablet 200 mg PO TID PRN pain 6 doses #6 02/14/23 (Pyridium) tabs nitrofurantoin 100 mg PO Q12H 7 days #14 caps 02/19/23 monohydrate/macrocrystals 100 mg capsule (Macrobid) cefuroxime axetil 250 mg tablet 250 mg PO BID 7 days #14 tabs 03/23/23 ibuprofen 600 mg tablet 600 mg PO Q6H PRN fever or pain 03/23/23 #30 tabs phenazopyridine 200 mg tablet 200 mg PO TID 6 doses #6 tabs 03/23/23 (Pyridium) cefuroxime axetil 250 mg tablet 250 mg PO BID 7 days #14 tabs 04/17/23 nitrofurantoin 100 mg PO Q12H 5 days #10 caps 04/22/23 monohydrate/macrocrystals 100 mg capsule (Macrobid) doxycycline hyclate 100 mg tablet 100 mg PO BID #14 tabs 06/09/24 Allergies Allergy/AdvReac Type Severity Reaction Status Date / Time Penicillins Allergy Intermediate Swelling Verified 06/09/24 04:10 mushroom Allergy Swelling Verified 06/09/24 04:10 Review of Systems Review of Systems: All other systems are reviewed and are negative Constitutional: Reports as per HPI and Reports no additional constitutional complaints Eyes: Reports as per HPI and Reports no additional eye complaints Reports system reviewed and no additional complaints, except as documented Cardiovascular: Reports as per HPI and Reports no additional cardiovascular complaints Respiratory: Reports as per HPI and Reports no additional respiratory complaints Gastrointestinal: Reports as per HPI and Reports no additional gastrointestinal complaints Genitourinary: Reports no additional female genitourinary complaints Musculoskeletal: Reports no additional musculoskeletal complaints Skin/Breast: Reports system reviewed and no additional complaints, except as docu Psychiatric: Reports no additional psychiatric complaints Endocrine: Reports no additional endocrine complaints Hematologic/Lymphatic: Reports no additional hematologic/lymphatic complaints Allergic/Immunologic: Reports no additional allergic/immunologic complaints Reports system reviewed and no additional complaints, except as documented and Reports Abnormal speech present [facility] Past Medical History Medical History (Updated 06/09/24 @ 04:48 by Buck Deshpande MD) Dog bite Hyperthyroidism Diabetes type I Social History Social History Alcohol intake: never Advance Directives: No Advance Directives Information Provided: Yes Do you have a plan to hurt others: No Plan Physical Exam ED Vital Signs: Vital Signs - 24 hr 06/09/24 04:09 Temperature 98.1 F Pulse Rate 91 Respiratory Rate 18 Blood Pressure 119/78 Pulse Oximetry 97 Oxygen Delivery Method Room Air BMI result Body Mass Index 40.8 Vital signs have been reviewed and appear to be correct. Blood pressure elevated. Heart rate normal. Respiratory rate normal. Temperature normal. Oxygen saturation normal. Appearance: Alert. Oriented X3. No acute distress. Head: Normal external exam. Normocephalic. Atraumatic. No Harrison signs noted. No raccoon eyes noted Eyes: PERRLA. EOMI. Conjunctiva and sclera normal. Eyelids normal. ENT: TM's Normal. Pharynx normal. Uvula midline. Moist mucous membranes. No trismus noted. No drooling noted. No muffled voice noted. Neck: Normal inspection. Neck supple. FROM. No adenopathy. Thyroid Normal. No meningeal signs. No neck mass noted. CVS: Normal heart rate and rhythm. Heart sound normal. No murmurs noted. Pulses normal throughout. Respiratory: No respiratory distress. Painless inspiration. Breath sounds normal. No wheezes/rales/rhonchi noted. Chest nontender. No accessory muscle usage noted or decreased air movement noted. Abdomen: Soft and nontender. Bowel sounds normal in all 4 quadrants. No distention noted. No organomegaly noted. No visible injury noted. Back: No CVA tenderness. Full range of motion noted. Skin: Skin warm and dry. Normal skin color. Normal skin turgor. No rashes/lesions/lacerations noted. Extremities: 2 small tooth roshni to the left hand on the palm and dorsum surface of the hand, no active bleeding, palpable foreign body, no discharge. Neuro: Oriented X 3. Cranial nerve exam: II-XII are grossly intact No motor deficit. No sensory deficit. Reflexes normal. Course Reevaluation(s) Reevaluation #1: S/p to bite. Start doxycycline patient is allergic to penicillins. Start rabies vaccination serous. Start rabies immunoglobulin. Tetanus booster. Time: 04:35 Medications Administered Discontinued Medications Generic Name Dose Route Start Last Admin Trade Name Freq PRN Reason Stop Dose Admin Diphtheria/Tetanus/Acell Pertussis 0.5 ml 06/09/24 04:30 06/09/24 05:07 Diphth,Pertus(Acell),Tet Adult 0.5 Ml Syringe IM 06/09/24 04:31 0.5 ml .ONCE ONE Administration Doxycycline Monohydrate 100 mg 06/09/24 04:31 06/09/24 05:07 Doxycycline Monohydrate 100 Mg Capsule PO 06/09/24 04:32 100 mg ONCE ONE Administration Rabies Vaccine 1 ml 06/09/24 04:30 06/09/24 05:07 Rabies Vaccine (Pcec)/Pf 1 Ml Vial IM 06/09/24 04:31 1 ml .ONCE ONE Administration Medical Decision Making Differential Diagnosis Differential Diagnoses: The differential diagnosis associated with the presentation includes (Cellulitis, foreign body retention, rabies vaccination, tetanus booster.) Admission/Observation Consideration of admission/observation: Escalation of care including admission/observation considered Discharge Plan Discharge Clinical Impression: Dog bite Patient Disposition: Home, Self-Care Instructions: Rabies (ED) Prescriptions: New doxycycline hyclate 100 mg tablet 100 mg PO BID Qty: 14 0RF No Action cefpodoxime 200 mg tablet 200 mg PO BID Qty: 14 0RF Rx Instructions: must administer with a meal/food phenazopyridine [Pyridium] 200 mg tablet 200 mg PO TID 2 Days Qty: 6 0RF cefuroxime axetil 250 mg tablet 250 mg PO BID 7 Days Qty: 14 0RF phenazopyridine [Pyridium] 200 mg tablet 200 mg PO TID Qty: 6 0RF ibuprofen 600 mg tablet 600 mg PO Q6H PRN (Reason: fever or pain) Qty: 30 0RF naproxen 500 mg tablet 500 mg PO BID PRN (Reason: pain) Qty: 14 0RF metaxalone 800 mg tablet 800 mg PO TID PRN (Reason: muscle pain) Qty: 14 0RF methylprednisolone [Medrol (Stas)] 4 mg tablets,dose pack 4 mg PO DAILY Qty: 21 0RF cefuroxime axetil 250 mg tablet 250 mg PO BID 7 Days Qty: 14 0RF phenazopyridine [Pyridium] 200 mg tablet 200 mg PO TID PRN (Reason: pain) Qty: 6 0RF nitrofurantoin monohyd/m-cryst [Macrobid] 100 mg capsule 100 mg PO Q12H 7 Days Qty: 14 0RF Rx Instructions: must administer with a meal/food cefuroxime axetil 250 mg tablet 250 mg PO BID 7 Days Qty: 14 0RF nitrofurantoin monohyd/m-cryst [Macrobid] 100 mg capsule 100 mg PO Q12H 5 Days Qty: 10 0RF Rx Instructions: must administer with a meal/food Print Language: Hungarian
[2024-06-09] MEDS: Doxycycline Monohydrate 100 MG CAPSULE PO (05:07)
[2024-06-09] MEDS: Rabies Vaccine (PCEC)/PF 1 ML VIAL IM (05:07)
[2024-06-09] MEDS: Diphth,Pertus(ACell),Tet Adult 0.5 ML SYRINGE IM (05:07)
[2024-06-09] MEDS: Rabies Immune Globulin/PF 1,500 UNIT/5 ML VIAL 2087.2 UNIT IM (07:28)
[2024-06-09 07:48] VITALS: BP 119/78; PULSE 91; RESP 18; TEMP 36.7; O2SAT 97
== END 2024-06-09 07:48 | disposition home or self-care (01) ==
PROVIDERS: Emergency Provider Emergency Medicine
DX: S61.452A Open bite of left hand, initial encounter (principal); W54.0XXA Bitten by dog, initial encounter; Y93.9 Activity, unspecified; Y92.9 Unspecified place or not applicable; Y99.9 Unspecified external cause status; E10.9 Type 1 diabetes mellitus without complications; Z79.899 Other long term (current) drug therapy; Z23 Encounter for immunization
CPT/HCPCS: 73120; 90375; 90471; 90472; 90675; 90715; 96372; 99283; 99284

== ENCOUNTER 2024-06-23 14:30 | Outpatient (RCR) | payer MEDICAID, SELFPAY ==
[2024-06-12 13:58] VITALS: BP 132/84; PULSE 86; RESP 16; TEMP 36.1; O2SAT 97
[2024-06-12] MEDS: Rabies Vaccine (PCEC)/PF 1 ML VIAL IM (14:05)
[2024-06-16 14:35] VITALS: BP 135/85; PULSE 98; RESP 14; TEMP 36.2; O2SAT 98
[2024-06-16] MEDS: Rabies Vaccine (PCEC)/PF 1 ML VIAL IM (14:38)
[2024-06-23 14:31] VITALS: BP 133/86; PULSE 101; RESP 20; TEMP 37.2; O2SAT 98
[2024-06-23] MEDS: Rabies Vaccine (PCEC)/PF 1 ML VIAL IM (14:33)
== END 2024-06-23 14:37 | disposition home or self-care (01) ==
LOC: HO.INF 14:30
PROVIDERS: Visit Provider Emergency Medicine
DX: Z20.3 Contact with and (suspected) exposure to rabies (principal); T14.8XXD Other injury of unspecified body region, subsequent encounter; W54.0XXD Bitten by dog, subsequent encounter
CPT/HCPCS: 90471; 90675

== ENCOUNTER 2024-08-09 04:05 | Emergency (ER) | payer MEDICAID, SELFPAY ==
--- NOTE | ~2024-08-09 | XR_ITS ---
CLINICAL HISTORY: L. knee pain swelling, felt popping sensation 4 view left knee Comparison: None Findings: No acute fractures or dislocations. No significant suprapatellar effusion visualized. No radiopaque foreign body. IMPRESSION: 1. No acute fracture or dislocation injury identified at the left knee. This document has been electronically signed by: Tay Flores MD on 08/09/2024 04:59:22
[2024-08-09 04:07] VITALS: BP 134/77; PULSE 96; RESP 16; TEMP 36.4; O2SAT 98; BMI 39.0
[2024-08-09 06:49] VITALS: BP 123/60; PULSE 90; RESP 18; TEMP 37.2; O2SAT 98
--- NOTE | 2024-08-09 07:23 | ED.LOWEXIN ---
HPI - Extremity Injury (Lower) General Chief Complaint: Extremity Injury, Lower Stated Complaint: left knee pain Time Seen by Provider: 08/09/24 06:54 Source: patient and family Mode of arrival: wheelchair Limitations: no limitations History of Present Illness ED Provider: Kaya Ashley APRN HPI Narrative: 23-year-old female who is a type 1 diabetic, history of hypothyroidism presents the ER with complaints of left knee pain since Saturday. Patient reports she was stepping out of her car when she cause a twisting injury of her left knee, felt a pop and then immediately had pain. She denies any fall to the ground. She denies any associated weakness, numbness, tingling, redness or warmth. She does report some swelling over the inner aspect of the left knee. Pain is worsened with weight-bearing. No previous injuries in the knee. No hardware in place. 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 #21 ea 12/07/22 a dose pack (Medrol (Stas)) naproxen 500 mg tablet 500 mg PO BID PRN pain #14 tabs 12/07/22 cefuroxime axetil 250 mg tablet 250 mg PO BID 7 days #14 tabs 02/14/23 phenazopyridine 200 mg tablet 200 mg PO TID PRN pain 6 doses #6 02/14/23 (Pyridium) tabs nitrofurantoin 100 mg PO Q12H 7 days #14 caps 02/19/23 monohydrate/macrocrystals 100 mg capsule (Macrobid) cefuroxime axetil 250 mg tablet 250 mg PO BID 7 days #14 tabs 03/23/23 ibuprofen 600 mg tablet 600 mg PO Q6H PRN fever or pain 03/23/23 #30 tabs phenazopyridine 200 mg tablet 200 mg PO TID 6 doses #6 tabs 03/23/23 (Pyridium) cefuroxime axetil 250 mg tablet 250 mg PO BID 7 days #14 tabs 04/17/23 nitrofurantoin 100 mg PO Q12H 5 days #10 caps 04/22/23 monohydrate/macrocrystals 100 mg capsule (Macrobid) doxycycline hyclate 100 mg tablet 100 mg PO BID #14 tabs 06/09/24 Allergies Allergy/AdvReac Type Severity Reaction Status Date / Time Penicillins Allergy Intermediate Swelling Verified 08/09/24 04:10 mushroom Allergy Swelling Verified 08/09/24 04:10 Review of Systems Review of Systems: Yes all other systems are reviewed and are negative Constitutional: Constitutional: Reports no additional constitutional complaints, Denies body ache(s), Denies chills, Denies fever(s), Denies headache(s) and Denies weakness Eyes: Eyes: Reports no additional eye complaints and Denies change in vision ENT: Reports system reviewed and no additional complaints, except as documented, Denies dizziness, Denies headache(s), Denies nasal congestion, Denies nasal discharge and Denies neck pain Cardiovascular: Cardiovascular: Reports no additional cardiovascular complaints, Denies chest pain, Denies leg edema and Denies dyspnea Respiratory: Respiratory: Reports no additional respiratory complaints, Denies cough and Denies dyspnea Gastrointestinal: Gastrointestinal: Reports no additional gastrointestinal complaints, Denies abdominal pain, Denies diarrhea, Denies nausea and Denies vomiting Genitourinary: Genitourinary: Reports no additional female genitourinary complaints and Denies urinary incontinence Musculoskeletal: Musculoskeletal: Reports no additional musculoskeletal complaints, Denies back pain, Reports arthralgias, Reports joint swelling, Denies limited range of motion, Denies neck pain, Denies numbness and Denies tingling Integumentary/Breasts: Skin/Breast: Reports system reviewed and no additional complaints, except as docu and Denies rash Neurologic: Reports system reviewed and no additional complaints, except as documented, Denies Abnormal speech present, Denies dizziness, Denies headache(s), Denies numbness, Denies tingling and Denies weakness PMFSH Past Medical History Attestation statement: The following information was validated with the patient. Source: old records reviewed and nursing notes reviewed Medical History Dog bite Hyperthyroidism Diabetes type I Social History Social History Alcohol intake: never Advance Directives: No Advance Directives Information Provided: Yes Do you have a plan to hurt others: No Plan Physical Exam Vital Signs: Vital Signs: Last Vital Signs Temp 98.9 F 08/09/24 06:49 Pulse 90 08/09/24 06:49 Resp 18 08/09/24 06:49 BP 123/60 08/09/24 06:49 Pulse Ox 98 08/09/24 06:49 O2 Del Method Room Air 08/09/24 06:49 BMI result Body Mass Index 39.0 Const: General: cooperative, healthy appearing, comfortable and no acute distress Orientation/consciousness: patient oriented x3 Limitations: no limitations HEENT: Head: Yes normal to inspection Ears: hearing grossly normal bilaterally General nose exam: Normal external nose present Face and sinus: Yes normal facial exam Mouth: Normal oral and palatal mucosa present Throat: Yes posterior oropharynx normal Eyes: General: appearance normal, both eyes and all related structures Pupils: Equal, round and reactive pupils present Neck: Neck: Yes normal visual inspection Chest: Chest palpation & inspection: normal inspection of the chest Resp: Effort & Inspection: normal respiratory effort Auscultation: clear to auscultation bilaterally Cardio: Rate: regular rate Rhythm: regular rhythm Peripheral pulses: Peripheral pulses 2+ throughout GI: Inspection: Yes normal to inspection Palpation (GI): Soft to palpation and nontender Auscultation: normal bowel sounds Back/Spine/Pelvis: Thoracic/Lumbar Spine: thoracic and lumbar spine normal to inspection Skin: General skin exam: no rashes or lesions noted Neuro: General: patient oriented x3, no focal motor deficits and normal sensation to monofilament Cranial nerves: Yes Equal, round and reactive pupils present Cognition (Neuro): normal cognition Speech: No Abnormal speech present Gait exam (Neuro): Normal gait present Motor exam (neuro): 5/5 motor strength present throughout Extrem: Other: Pain on palpation to the left medial knee with slight swelling. Patient is able to flex and extend the knee without any difficulty. She has full distal range of motion both actively and passively. She has 2+ DP and PT pulses. Normal distal sensation. I do not appreciate any warmth or erythema. General: Yes normal to inspection, Yes no pedal edema and Yes no calf tenderness Course Course Course Narrative: X-ray show no bony abnormality. Likely sprain. May have underlying ligamental injury. Recommend patient follow up outpatient with orthopedics for any continued pain. Reviewed worrisome signs symptoms of when to return to the emergency room. Comfortable plan for discharge home. Medical Decision Making Medical Decision Making MDM Narrative: 23-year-old female here with left knee pain after twisting injury which occurred on Saturday There is some slight swelling and tenderness over the left medial knee on exam. CMS is intact distally. Patient has full active and passive range of motion of the affected joint. Will obtain x-rays Differential Diagnosis Differential Diagnoses: The differential diagnosis associated with the presentation includes Strain, sprain, ligamental injury Low suspicion for fracture, dislocation or vascular injury Admission/Observation Consideration of admission/observation: Escalation of care including admission/observation considered Low suspicion for fracture, dislocation or vascular injury requiring advanced imaging, orthopedic consultation Independent Interpretation I performed an independent interpretation of an: Plain X-Ray Interpretation: I independently viewed the x-ray and agree with the radiology report Radiology Impression Discussion of test interpretation with radiology: I have reviewed the radiologist's reading. Radiologist Impression: [place] [id number] XRay Report Signed Patient: Mariangel Ha MR#: [id number] : 2000 Acct:[id number] Age/Sex: 23 / F ADM Date: 08/09/24 Loc: HO.ED Attending Dr: Ordering Physician: Generic ED Physician Date of Service: 08/09/24 Procedure(s): XR knee LT 4V Accession Number(s): [id number] cc: Generic ED Physician; [facility] CLINICAL HISTORY: L. knee pain swelling, felt popping sensation 4 view left knee Comparison: None Findings: No acute fractures or dislocations. No significant suprapatellar effusion visualized. No radiopaque foreign body. IMPRESSION: 1. No acute fracture or dislocation injury identified at the left knee. This document has been electronically signed by: Tay Flores MD on 08/09/2024 04:59:22 Independent Historian Clinical information obtained from an independent historian. History obtained from or confirmed by: Friend Tests considered The following testing was considered but not selected: Low suspicion for fracture, dislocation or vascular injury requiring advanced imaging, Prescription Management I considered prescription management with: Pain Medication Procedures Orthopedic Splinting/Casting Injury #1: Side: left Lower Extremity Injury Location: knee Lower Extremity Immobilizer: Lucius wrap Other Orthopedic Equipment: crutches Discharge Plan Discharge Clinical Impression: Left knee sprain Patient Disposition: Home, Self-Care Instructions: Knee Sprain (ED), Crutch Instructions (ED), How to Use an Elastic Bandage (ED) Additional Instructions: Your x-ray show no bony abnormality You may have sprained a ligament in your knee Continue to use the Lucius wrap in the crutches for the next few days Elevate the extremity Take Motrin or Tylenol if able as needed for pain or fever Ice to the area Prescriptions: No Action cefpodoxime 200 mg tablet 200 mg PO BID Qty: 14 0RF Rx Instructions: must administer with a meal/food phenazopyridine [Pyridium] 200 mg tablet 200 mg PO TID 2 Days Qty: 6 0RF cefuroxime axetil 250 mg tablet 250 mg PO BID 7 Days Qty: 14 0RF phenazopyridine [Pyridium] 200 mg tablet 200 mg PO TID Qty: 6 0RF ibuprofen 600 mg tablet 600 mg PO Q6H PRN (Reason: fever or pain) Qty: 30 0RF naproxen 500 mg tablet 500 mg PO BID PRN (Reason: pain) Qty: 14 0RF metaxalone 800 mg tablet 800 mg PO TID PRN (Reason: muscle pain) Qty: 14 0RF methylprednisolone [Medrol (Stas)] 4 mg tablets,dose pack 4 mg PO DAILY Qty: 21 0RF cefuroxime axetil 250 mg tablet 250 mg PO BID 7 Days Qty: 14 0RF phenazopyridine [Pyridium] 200 mg tablet 200 mg PO TID PRN (Reason: pain) Qty: 6 0RF nitrofurantoin monohyd/m-cryst [Macrobid] 100 mg capsule 100 mg PO Q12H 7 Days Qty: 14 0RF Rx Instructions: must administer with a meal/food cefuroxime axetil 250 mg tablet 250 mg PO BID 7 Days Qty: 14 0RF nitrofurantoin monohyd/m-cryst [Macrobid] 100 mg capsule 100 mg PO Q12H 5 Days Qty: 10 0RF Rx Instructions: must administer with a meal/food doxycycline hyclate 100 mg tablet 100 mg PO BID Qty: 14 0RF Referrals: [facility] [Provider Group] - 1 week Print Language: Senegalese
[2024-08-09 08:03] VITALS: BP 123/60; PULSE 90; RESP 18; TEMP 37.2; O2SAT 98
== END 2024-08-09 08:04 | disposition home or self-care (01) ==
PROVIDERS: Emergency Provider Emergency Medicine
DX: S83.92XA Sprain of unspecified site of left knee, initial encounter (principal); M25.562 Pain in left knee; X50.1XXA Overexertion from prolonged static or awkward postures, initial encounter; Y93.89 Activity, other specified; Y92.89 Other specified places as the place of occurrence of the external cause; Y99.8 Other external cause status; Z79.899 Other long term (current) drug therapy
CPT/HCPCS: 29505; 73564; 99283; 99284

== ENCOUNTER → 2024-08-09 04:15 | Outpatient (BNV) | payer MEDICAID, SELFPAY | PROVIDERS: Visit Provider Radiology Diagnostic Radiology | DX: M25.562 Pain in left knee (principal); M25.462 Effusion, left knee | CPT/HCPCS: 73564 ==

== ENCOUNTER 2024-09-07 08:59 | Outpatient (REF) | payer MEDICAID, SELFPAY ==
--- NOTE | ~2024-09-07 | XR_ITS ---
CLINICAL HISTORY: M25.562 - Pain in left knee 1 view left knee Comparison: CR - XR KNEE LT 4V - 08/09/24 04:25 EST Findings: Mild lateral patellofemoral joint space narrowing is present. No acute fracture or dislocation is identified. IMPRESSION: 1. Mild lateral patellofemoral joint space narrowing. This document has been electronically signed by: Pio Tavarez on 09/09/2024 09:19:22
--- OUTSIDE RECORDS SUMMARY | 2024-09-08 09:18 | XMS_ITS | Encounter Summary ---
Author Organization [employer] Address 75 [facility] 7t [place] [address] Care Team Providers Care Test Evaluator Name Role Phone Georgette Rossi Primary Care Provider [phone] Cailin Hidalgo Primary Care Provider [phone] Yesica Duran MD Primary Care Provide r Encounter Details Date Type Department Care Team (Late st Contact Info) Description 10/23/2022 Abstract [facility] MEDICINE [address] [place] [address] Georgette Rossi FNP [address] [place] [address] Dept of [place] [address] Social History Tobacco Use Types Packs/Day Years [...] on filedocumented in this encounter Care Teams Test Evaluator Relationship Specialty Start Date End Date Georgette Rossi FNP PCP - General Family Medicine 03/29/22 01/09/23 Cailin Hidalgo FNP [address] [place] [address] PCP - General Family Medicine 01/30/23 04/06/24 Yesica Duran MD [address] [place] [address] PCP - General Internal Medicine 04/07/24 documented as of this encounter
--- OUTSIDE RECORDS SUMMARY | 2024-09-08 09:18 | XMS_ITS | Encounter Summary ---
Author Organization [employer] Address [address] [facility] [address] 7t [place] [address] Care Team Providers Care Fruit Inspector Name Role Phone Georgette Rossi [facility] Primary Care Provider [phone] Cailin Hidalgo [facility] Primary Care Provider [phone] Yesica Duran MD Primary Care Provide r Reason for Visit * Reason Comments Med Refill Encounter Details Date Type Department Care Team (Late st Contact Info) Description 12/26/2022 Refill [facility] ADULT DENTAL [address] [place] [address] No Leblanc DDS [address] [place] [address] Social History Tobacco Use Types Packs/Day Years [...] on filedocumented in this encounter Care Teams Fruit Inspector Relationship Specialty Start Date End Date Georgette Rossi FNP PCP - General Family Medicine 03/29/22 01/09/23 Cailin Hidalgo FNP [address] [place], [place] [phone] PCP - General Family Medicine 01/30/23 04/06/24 Yesica Duran MD [address] [place], [place] [phone] PCP - General Internal Medicine 04/07/24 documented as of this encounter
--- OUTSIDE RECORDS SUMMARY | 2024-09-08 09:18 | XMS_ITS | Encounter Summary ---
Author Organization [employer] Address [address] [facility] [address] 7t [place] [address] Care Team Providers Care Outreach Specialist Name Role Phone Yesica Duran MD Primary Care Provide r Encounter Details Date Type Department Care Team (Late st Contact Info) Description 08/09/2024 Orders Only [facility] External Provider, [facility] Social History Tobacco Use Types Packs/Day [...] Region Laterality Modality Lower Extremities, Knee Left [facility] 08/09/2024 4:59 AM EST Narrative 08/09/2024 5:00 AM EST ? [facility] ?[address] ?[place] [address] ?XRay Report ? Signed ? Patient: Dilcia,Tanairy ?MR#: [id number] ?? 19 ? : 2000 ?Acct:[id number] ? Age/Sex: 23 / F ?ADM Date: 08/09/24 ? Loc: HO.ED ? Attending Dr: ? Ordering Physician: Generic ED Physician ?? Date of Service: 08/09/24 ?? Procedure(s): XR knee LT 4V ?? Accession Number(s): [id number] ? cc: Generic ED Physician; [facility] ? CLINICAL HISTORY: L. knee pain [...] ? DD/ 0459 ? TD/TT: 08/09/249 ? Computer Applications Developer: ? Procedure Note Stone, Image - 01/05/2025 [facility] [address] [place] [address] XRay Report Signed Patient: Sue Ha#: [id number] [birth year] : 2000Acct:[id number] Age/Sex: 23 / FADM Date: 08/09/24 Loc: HO.ED Attending Dr: Ordering Physician: Generic ED Physician Date of Service: 08/09/24 Procedure(s): XR knee LT 4V Accession Number(s): [id number] cc: Generic ED Physician; [facility] CLINICAL HISTORY: L. knee pain swelling, [...] in OV> 08/09/24 0459 DD/ TD/TT: 08/09/24458 Computer Applications Developer: [facility] External Provider IMG XR PROCEDURES Final Result documented in this encounter Visit Diagnoses Not on filedocumented in this encounter Care Teams Outreach Specialist Relationship Specialty Start Date End Date Yesica Duran MD [address] [place] [address] PCP - General Internal Medicine 04/07/24 documented as of this encounter
--- OUTSIDE RECORDS SUMMARY | 2024-09-08 09:18 | XMS_ITS | Encounter Summary ---
Author Organization [employer] Address 75 [facility] 7t [place] [address] Care Team Providers Care Motorcycle Deliverer Name Role Phone GwenCailin ROBIN Primary Care Provider [phone] Yesica Duran MD Primary Care Provide r Reason for Visit * Reason Onset Date Comments extractions 05/02/2023 Encounter Details Date Type Department Care Team ([facility] st Contact Info) Description 05/02/2023 Telephone [facility] ADULT DENTAL [address] [place] [address] Chava Ochoa DDS [address] [place] [address] extractions Social History Tobacco Use Types Packs/Day [...] and treatment planned for extractions and crowns. [place] appt requested but the extraction appt was not requested and she wants the extraction done due to discomfort. She would like to be schedule for exo. documented in this encounter Plan of Treatment Not on file documented as of this encounter Visit Diagnoses Not on filedocumented in this encounter Care Teams Motorcycle Deliverer Relationship Specialty Start Date End Date Cailin Hidalgo FNP [address] [place] [address] PCP - General Family Medicine 01/30/23 04/06/24 Yesica Duran MD [address] [place] [address] PCP - General Internal Medicine 04/07/24 documented as of this encounter
--- OUTSIDE RECORDS SUMMARY | 2024-09-08 09:18 | XMS_ITS | Encounter Summary ---
Author Organization [employer] Address 75 [facility] 7t [place] [address] Care Team Providers Care Flanging Operator Name Role Phone Cailin Hidalgo ROBIN Primary Care Provider [phone] Yeisca Duran MD Primary Care Provide r Reason for Visit * Reason Onset Date Comments Appointment Request 01/29/2023 Encounter Details Date Type Department Care Team ([facility] st Contact Info) Description 01/29/2023 Telephone [facility] MEDICINE [address] [place] [address] Georgette Rossi FNP [address] [place] [address] Dept [place] [address] Appointment Request Social History Tobacco Use Types [...] on filedocumented in this encounter Care Teams Flanging Operator Relationship Specialty Start Date End Date Cailin Hidalgo FNP [address] [place], [place] [phone] PCP - General Family Medicine 01/30/23 04/06/24 Yesica Duran MD [address] [place] [address] PCP - General Internal Medicine 04/07/24 documented as of this encounter
--- OUTSIDE RECORDS SUMMARY | 2024-09-08 09:18 | XMS_ITS | Clinical Summary ---
Author Organization [employer] Address 75 [facility] 7t [place] [address] Care Team Providers Care Furnace Installer Name Role Phone Yesica Duran MD Primary [...] MINI PEN NEEDLES 31G X 5 MM [facility] FOR USE WITH INSULIN PEN 3 Active FreeStyle lancets USE TO TEST 4 TIMES DAILY 3 Active escitalopram (Lexapro) 20 MG tablet TAKE 1 TABLET BY MOUTH EVERY DAY FOR ANXIETY 90 tablet 3 Active Continuous Blood Gluc Preschool Assistant Director (FreeStyle Ruma 2 [place]) device Use as directed to monitor glucose [...] Department Care Team Description 08/09/2024 Orders Only [facility] External Provider, [facility] 06/11/2024 Refill [facility] MEDICINE [address] [place] [phone] Cailin Hidalgo FNP from Last 3 Months [...] Hyperglycemia due to type 1 diabetes mellitus ([facility]/HCC) PROPHYLAXIS - ADULT Routine 12/25/2022 2 :00 [...] EST Narrative 08/09/2024 5:00 AM EST ? [facility] ?[address] ?[place] [address] ?XRay Report ? Signed ? Patient: Mariangel Ha ?MR#: [id number] ?? 19 ? : 2000 ?Acct:[id number] ? Age/Sex: 23 / F ?ADM Date: 08/09/24 ? Loc: HO.ED ? Attending Dr: ? Ordering Physician: Generic ED Physician ?? Date of Service: 08/09/24 ?? Procedure(s): XR knee LT 4V ?? Accession Number(s): [id number] ? cc: Generic ED Physician; [facility] ? CLINICAL HISTORY: L. knee pain [...] DD/ 0459 ? TD/TT: 08/09/24 0459 ? Asphalt Spreader: ? Procedure Note Stone, Image - 08/09/[address] [address] XRay Report Signed Patient: Sue Ha#: [id number] [birth year] : 2000Acct:[id number] Age/Sex: 23 / FADM Date: 08/09/24 Loc: HO.ED Attending Dr: Ordering Physician: Generic ED Physician Date of Service: 08/09/24 Procedure(s): XR knee LT 4V Accession Number(s): [id number] cc: Generic ED Physician; [facility] CLINICAL HISTORY: L. knee pain swelling, [...] in OV> 08/09/24 0459 DD/ TD/TT: 08/09/24458 Asphalt Spreader: [facility] External Provider IMG XR PROCEDURES Final Result * (ABNORMAL) POCT HGB A1C (08/14/2023 3:57 PM EST) Hemoglobin A1C 7.6(A) 4.0 - 6.0 % QC Media Lot # [id number] Lot# Expiration Date [id number] Blood 08/14/2023 3:57 PM EST Cailin Hidalgo CHAIN HOOKER POINT OF CARE TEST ENTER/EDIT O RDERABLES Final Result * Hm Pap Smear (08/01/2022 12:00 AM EST) Historical Provider HEALTH MAINTENANCE Final Result from Last 3 Months or Most Recently Relevant to Health Maintenance Insurance * Guarantor: Dilcia, Tanairy Account Type Relation to Patient Date of Phone Billing Address Personal/Family Self [address] Care Teams Furnace Installer Relationship Specialty Start Date End Date Yesica Duran MD [address] [place] [address] PCP - General Internal Medicine 04/07/24
== END 2024-09-07 09:00 | disposition home or self-care (01) ==
LOC: HO.HOSX 08:59
PROVIDERS: Visit Provider Physician Assistant
DX: M25.562 Pain in left knee (principal); S83.002A Unspecified subluxation of left patella, initial encounter
CPT/HCPCS: 73560; 99212

== ENCOUNTER 2024-09-07 14:46 | Outpatient (AMB) | payer MEDICAID, SELFPAY ==
--- NOTE | 2024-09-07 14:47 | MHC.OFFVIS ---
Vital Signs 09/07/24 15:00 Height 5 ft 3 in Weight 220 lb BMI 39.0 Intake Visit Reasons: [employer]- ED f/u Left knee sprain Intake Note: Mariangel is a 23 year old female who presents today for an ER follow up of left knee injury, DOI 08/07/24. Patient was seen at [facility] ER s/p twisting injury when she was stepping into the back seat of a car, she felt a pop and then had immediate shooting pain and swelling. Currently she is unable to fully straighten her leg and at times her knee will buckle. States shooting pain at the medial aspect of knee. Finds no relief with icing, however her swelling has improved. Denies numbness or tingling. Allergies Penicillins Allergy (Intermediate, Verified 09/07/24 14:59) Swelling mushroom Allergy (Verified 09/07/24 14:59) Swelling Medication List - Last Reconciled 09/07/24 by Verito Rene PA-C ibuprofen 800 mg PO Q8H PRN 30 days insulin glargine (Lantus Solostar U-100 Insulin) 36 units subcut DAILY semaglutide (weight loss) (Wegovy) 0.25 mg subcut QWEEK HPI HPI [employer]- ED f/u Left knee sprain: Details: 23-year-old female presents to the office today for an injury she sustained to her left knee approximately 4 weeks ago. She states she had stepped into the backseat of her car to push her backpack in when she felt a pop in her knee she had immediate pain where she was seen in the emergency department. X-rays were obtained and she was referred to our office for ortho eval. [facility] Medical History Dog bite Hyperthyroidism Diabetes type I Social History (Updated 09/07/24 @ 14:57 by SAMIR Colmenares) Alcohol intake: never Patient Tobacco Use Status: Never used Tobacco Current occupational status: unemployed Review of Systems Const All systems reviewed & are unremarkable except as noted in HPI and below Physical Exam Vital Signs: BMI result Body Mass Index 39.0 Const General: cooperative and no acute distress Orientation/consciousness: patient oriented x3 Resp Effort & Inspection: normal respiratory effort and able to speak in complete sentences Cardio Peripheral pulses: Peripheral pulses 2+ throughout Neuro General: patient oriented x3 Extrem Other: Left knee normal to inspection no joint effusion present. She does have retropatellar tenderness along the patella. Full range of motion present. Neurovascular intact. Results Reviewed Results Reviewed: X-rays of the left knee obtained in the office and reviewed by me today show lateralization of the patella. No acute fractures or dislocations. Assessment & Plan Assessment & Plan (1) Subluxation of left patella: Code(s): S83.002A - Unspecified subluxation of left patella, initial encounter Category: Medical Plan: I recommend a course of physical therapy to work on strengthening exercises and Friedman taping. She was fit for a stabilized knee brace in the office today and she will increase activities as tolerated and follow-up as needed. Orders: Orders PT Evaluation and Treatment Today Verito Rene PA-C S83.002A - Unspecified subluxation of left patella, initial encounter XR knee LT 1V Today Veriot Rene PA-C M25.562 - Pain in left knee Medications: New ibuprofen 800 mg PO Q8H PRN 90 tabs 3RF pain 30 days Verito Rene PA-C S52.209D - Unspecified fracture of shaft of unspecified ulna, subsequent encounter for closed fracture with routine healing Discontinued phenazopyridine (Pyridium) Discontinued Reason: Patient no longer taking 200 mg PO TID 6 tabs 0RF 2 days SAMIR Colmenares cefpodoxime must administer with a meal/food Discontinued Reason: Patient no longer taking 200 mg PO BID 14 tabs 0RF SAMIR Colmenares metaxalone Discontinued Reason: Patient no longer taking 800 mg PO TID PRN 14 tabs 0RF muscle pain SAMIR Colmenares methylprednisolone (Medrol (Stas)) Discontinued Reason: Patient no longer taking 4 mg PO DAILY 21 ea 0RF tmj syndrome SAMIR Colmenares naproxen Discontinued Reason: Patient no longer taking 500 mg PO BID PRN 14 tabs 0RF pain SAMIR Colmenares cefuroxime axetil Discontinued Reason: Patient no longer taking 250 mg PO BID 14 tabs 0RF 7 days SAMIR Colmenares cefuroxime axetil Discontinued Reason: Patient no longer taking 250 mg PO BID 14 tabs 0RF 7 days SAMIR Colmenares phenazopyridine (Pyridium) Discontinued Reason: Patient no longer taking 200 mg PO TID PRN 6 tabs 0RF pain 6 doses SAMIR Colmenares nitrofurantoin monohyd/m-cryst 100 mg (Macrobid) must administer with a meal/food Discontinued Reason: Patient no longer taking 100 mg PO Q12H 14 caps 0RF 7 days SAMIR Colmenares cefuroxime axetil Discontinued Reason: Patient no longer taking 250 mg PO BID 14 tabs 0RF 7 days SAMIR Colmenares phenazopyridine (Pyridium) Discontinued Reason: Patient no longer taking 200 mg PO TID 6 tabs 0RF 6 doses SAMIR Colmenares nitrofurantoin monohyd/m-cryst 100 mg (Macrobid) must administer with a meal/food Discontinued Reason: Patient no longer taking 100 mg PO Q12H 10 caps 0RF 5 days SAMIR Colmenares doxycycline hyclate Discontinued Reason: Patient no longer taking 100 mg PO BID 14 tabs 0RF SAMIR Colmenares Coding Level of Care Code New Pt Level 3 (32309) Complex EM visit Add On G2211 Diagnoses Subluxation of left patella S83.002A
[2024-09-07 15:00] VITALS: BMI 39.0
--- OUTSIDE RECORDS SUMMARY | 2024-09-07 16:21 | XMS_ITS | Encounter Summary ---
Author Organization [email or web address] Address [address] [place] [address] Care Team Providers Care Creative Engagement Director Name Role Phone Cailin Hidalgo ROBIN Primary Care Provider [phone] Yesica Duran MD Primary Care Provide r Reason for Visit * Reason Onset Date Comments Appointment Request 01/29/2023 Encounter Details Date Type Department Care Team ([facility] st Contact Info) Description 01/29/2023 Telephone [facility] [address] [place] [address] Georgette Rossi FNP [address] [place] [address] Dept [place] [address] Appointment Request Social History Tobacco Use Types Packs/Day Years Used Date Smoking Tobacco: Never Smokeless Tobacco: Never Comments No Sex and Gender Information Value Date Recorded Sex Assigned at Female 06/04/2022 10:29 AM EDT Legal Sex Female 10:29 AM EDT Gender Identity Female 06/04/2022 10:29 AM EDT Sexual Orientation Straight 06/04/2022 10 :29 AM EDT COVID-19 Exposure Response Date Recorded In the last 10 days, have yo u been in contact with someone who was confirmed or suspected to have Coronavirus/COVID-19? No / Unsure 01/17/2023 1:28 PM EDT documented as of this encounter Miscellaneous Notes * Telephone Encounter - Theresa Sahu - 04/22/2023 10:36 AM EDT Tc from pt regarding message below. Pt is requesting appointment to discuss medical concerns. Pt denied triage. * Telephone Encounter - Alexandra Mayorga - 01/29/2023 12:28 PM EDT Tc from pt requesting a transfer pt appt with new pcp . documented in this encounter Plan of Treatment Not on file documented as of this encounter Visit Diagnoses Not on filedocumented in this encounter Care Teams Creative Engagement Director Relationship Specialty Start Date End Date Cailin Hidalgo FNP [address] [place], [place] [id number] PCP - General Family Medicine 01/30/23 04/06/24 Yesica Duran MD [address] [place] [address] PCP - General Internal Medicine 04/07/24 documented as of this encounter
--- OUTSIDE RECORDS SUMMARY | 2024-09-07 16:21 | XMS_ITS | Encounter Summary ---
Author Organization [employer] Address [address] [place] [address] Care Team Providers Care Detention Attendant Name Role Phone Yesica Duran MD Primary Care Provide r Encounter Details Date Type Department Care Team (Late st Contact Info) Description 08/09/2024 Orders Only [facility] External Provider, [facility] Social History Tobacco Use Types Packs/Day Years Used Date Smoking Tobacco: Never Smokeless Tobacco: Never Alcohol Use Standard Drinks/Week Comments Never 0 (1 standard drink = 0.6 oz pur e alcohol) Housing Stability Answer Date Recorded What is your housing situation today? I have yohana kenisha 06/03/[address] you li ve. Do you have problems with any of the following? None of the above 06/03/2023 Food Insecurity Answer Date Recorded Within the past 12 months, y ou worried that your food would run out before you got money to buy more: Never True 06/03/2023 Within the past 12 months,th e food you bought just didn't last and you didn't have enough money to get more: Never True Transportation Answer Date Recorded In the past 12 months, has l ack of transportation kept you from medical appts, meetings, work or from getting things needed for daily living? No 06/03/2023 Utilities Answer Date Recorded In the past 12 months, has t he electric, gas, oil or water company threatened to shut off services in your home? No 06/03/2023 Internet Access Answer Date Recorded Internet Access Q1 Yes 04/06/2024 Internet Access Q2 Not on file 04/06/2024 Comments No Sex and Gender Information Value Date Recorded Sex Assigned at Female 06/04/2022 10:29 AM EDT Legal Sex Female 10:29 AM EDT Gender Identity Female 06/04/2022 10:29 AM EDT Sexual Orientation Straight 06/04/2022 10 :29 AM EDT documented as of this encounter Plan of Treatment Not on file documented as of this encounter Procedures Procedure Name Priority Date/Time Associated Diagnosis Comments XR KNEE 4+ VIEWS LEFT Routine 08/09/2024 4:59 AM EST documented in this encounter Results * XR Knee 4+ Views Left (08/09/2024 4:59 AM EST) Anatomical Region Laterality Modality Lower Extremities, Knee Left [facility] 08/09/2024 4:59 AM EST Narrative 08/09/2024 5:00 AM EST ? [facility] ?[address] ?[place] [address] ?XRay Report ? Signed ? Patient: Dilcia,Tanairy ?MR#: [id number] ?? 17 ? : 2000 ?Acct:[id number] ? Age/Sex: 23 / F ?ADM Date: 08/09/24 ? Loc: HO.ED ? Attending Dr: ? Ordering Physician: Generic ED Physician ?? Date of Service: 08/09/24 ?? Procedure(s): XR knee LT 4V ?? Accession Number(s): [id number] ? cc: Generic ED Physician; [facility] ? CLINICAL HISTORY: L. knee pain swelling, felt popping sensation ? 4 view left knee ? Comparison: None ? Findings: ?? No acute fractures or dislocations. ?? No significant suprapatellar effusion visualized. ?? No radiopaque foreign body. ? IMPRESSION: ?? 1. No acute fracture or dislocation injury identified at the left knee. ? This document has been electronically signed by: Tay Flores MD on ?? 08/09/2024 04:59:22 ? Dictated By: ?Tay Flores MD ? Signed By: ?<Electronically signed by Tay Flores MD in OV> ? 08/09/24458 ? DD/ 0459 ? TD/TT: 08/09/249 ? Mobile Practice Lead: ? Procedure Note Stone, Image - 01/05/2025 [facility] [address] [place] [id number] XRay Report Signed Patient: Sue Ha#: [id number] 19 : 2000Acct:[id number] Age/Sex: 23 / FADM Date: 08/09/24 Loc: HO.ED Attending Dr: Ordering Physician: Generic ED Physician Date of Service: 08/09/24 Procedure(s): XR knee LT 4V Accession Number(s): [id number] cc: Generic ED Physician; [facility] CLINICAL HISTORY: L. knee pain swelling, felt popping sensation 4 view left knee Comparison: None Findings: No acute fractures or dislocations. No significant suprapatellar effusion visualized. No radiopaque foreign body. IMPRESSION: 1. No acute fracture or dislocation injury identified at the left knee. This document has been electronically signed by: Tay Flores MD on 08/09/2024 04:59:22 Dictated By: Tay Flores MD Signed By: <Electronically signed by Tay Flores MD in OV> 08/09/24 0459 DD/ TD/TT: 08/09/24458 Mobile Practice Lead: [facility] External Provider IMG XR PROCEDURES Final Result documented in this encounter Visit Diagnoses Not on filedocumented in this encounter Care Teams Detention Attendant Relationship Specialty Start Date End Date Yesica Duran MD [address] [place] [id number] PCP - General Internal Medicine 04/07/24 documented as of this encounter
--- OUTSIDE RECORDS SUMMARY | 2024-09-07 16:21 | XMS_ITS | Encounter Summary ---
Author Organization [employer] Address 75 [facility] 7t [place] [address] Care Team Providers Care Integrated Marketing Intern Name Role Phone GwenCailin ORBIN Primary Care Provider [phone] Yesica Duran MD Primary Care Provide r Reason for Visit * Reason Onset Date Comments extractions 05/02/2023 Encounter Details Date Type Department Care Team ([facility] st Contact Info) Description 05/02/2023 Telephone [facility] ADULT DENTAL [address] [place] [address] Chava Ochoa DDS [address] [place] [address] extractions Social History Tobacco Use Types Packs/Day Years Used Date Smoking Tobacco: Never Smokeless Tobacco: Never Comments No Sex and Gender Information Value Date Recorded Sex Assigned at Female 06/04/2022 10:29 AM EDT Legal Sex Female 10:29 AM EDT Gender Identity Female 06/04/2022 10:29 AM EDT Sexual Orientation Straight 06/04/2022 10 :29 AM EDT documented as of this encounter Miscellaneous Notes * Telephone Encounter - Deja Cody - 05/02/2023 10:46 AM EDT Patient came in November and treatment planned for extractions and crowns. [place] appt requested but the extraction appt was not requested and she wants the extraction done due to discomfort. She would like to be schedule for exo. documented in this encounter Plan of Treatment Not on file documented as of this encounter Visit Diagnoses Not on filedocumented in this encounter Care Teams Integrated Marketing Intern Relationship Specialty Start Date End Date Cailin Hidalgo FNP [address] [place] [address] PCP - General Family Medicine 01/30/23 04/06/24 Yesica Duran MD [address] [place] [address] PCP - General Internal Medicine 04/07/24 documented as of this encounter
--- OUTSIDE RECORDS SUMMARY | 2024-09-07 16:21 | XMS_ITS | Clinical Summary ---
Author Organization [employer] Address 75 [facility] 7t [place] [address] Care Team Providers Care Tar Heat Exchanger Cleaner Name Role Phone Yesica Duran MD Primary Care Provide r Allergies Active Allergy Reactions Criticality Noted Date Comments Penicillins High 10/19/2020 Other reaction(s): Facial swelling, Hives Medications insulin lispro (HumaLOG) 100 UNIT/ML injection inject by subcutaneous route per sliding scale 2 Active insulin glargine (Lantus) 100 UNIT/ML injection Inject under the skin. Active acetaminophen (Tylenol 8 Hour) 650 MG ER tablet TAKE 1 TAB BY MOUTH EVERY 8 HOURS IF NEEDED FOR PAIN FOR UP TO 10 DAYS. DO NOT CRUSH, CHEW, OR SPLIT 15 tablet 3 Active ibuprofen 800 MG tablet TAKE 1 TABLET BY MOUTH EVERY 8 HOURS NEEDED FOR MILD PAIN FOR UP TO 10 DAYS 15 tablet 3 Active Lantus SoloStar 100 UNIT/ML pen INJECT 36 UNITS SUBCUTANEOUSLY ONCE DAILY 3 Active FREESTYLE LITE test strip USE TO TEST 5 TIMES DAILY 3 Active insulin aspart FlexPen (NovoLOG) 100 UNIT/ML pen E10.9 MAX DAILY DOSE 75 UNITS , SUBCUTANEOUS INFUSION 3 TIMES A DAY BEFORE MEALS PER SLIDING SCALE 3 Active B-D UF III MINI PEN NEEDLES 31G X 5 MM [facility] FOR USE WITH INSULIN PEN 3 Active FreeStyle lancets USE TO TEST 4 TIMES DAILY 3 Active escitalopram (Lexapro) 20 MG tablet TAKE 1 TABLET BY MOUTH EVERY DAY FOR ANXIETY 90 tablet 3 Active Continuous Blood Gluc Director Of Rotc (FreeStyle Ruma 2 Mission) device Use as directed to monitor glucose ever 8 hours. 1 each 4 Active Continuous Blood Gluc Sensor (FreeStyle Ruma 2 Sensor) misc Use as directed to monitor glucose ever 8 hours. Replace sensor every 14 days. 2 each 4 Active busPIRone (Buspar) 10 MG tablet TAKE 1 TABLET BY MOUTH TWICE A DAY 180 tablet 2 4 Active Active Problems Problem Noted Date Diagnosed Date Generalized anxiety disorder 08/14/202305/2024 Hyperglycemia due to type 1 diabetes mellitus 08/14/2023 Hyperthyroidism 08/14/2023 08/14/2023 Major depressive disorder 10/19/20202023 Encounters Date Type Department Care Team Description 08/09/2024 Orders Only [facility] External Provider, [facility] 06/11/2024 Refill [facility] MED[facility]INE [address] [place] [address] [phone] Cailin Hidalgo FNP from Last 3 Months Immunizations Name Administration Dates Next Due Hep A, ped/adol, 2 dose 08/29/2016,06/17/2015 Influenza injectable quadriv alent preservative free 06/12/2018 Influenza, IIV3, injectable 05/13/2020, 7,06/30/2014 Influenza, seasonal, injecta ble, preservative free 05/23/2016,06/17/2015 Meningococcal B, Recombinant 08/29/2016,06/17/20 15 Meningococcal MCV4O 11/25/2018 Pneumococcal Conjugate PCV 13 06/17/2015 Tdap 09/22/2022,12/12/2021,11/25/2018 Social History Tobacco Use Types Packs/Day Years Used Date Smoking Tobacco: Never Smokeless Tobacco: Never Tobacco Cessation:Counseling Given: Not Answered Alcohol Use Standard Drinks/Week Comments Never 0 (1 standard drink = 0.6 oz pur e alcohol) Housing Stability Answer Date Recorded What is your housing situation today? I have yohana de 06/03/[address] you li [...] Orientation Straight 06/04/2022 10 :29 AM EDT Last Filed Vital Signs Vital Sign Reading Time Taken Comments Blood Pressure 121/76 08/14/2023 3:42 PM EST Pulse 100 08/14/2023 3:42 PM EST Temperature 36.9 ??C (98.5 ??F) 08/14/2023 3:42 PM ES T Respiratory Rate 20 08/14/2023 3:42 PM EST Oxygen Saturation 97% 08/14/2023 3:42 PM EST Inhaled Oxygen Concentration - - Weight 99.3 kg (219 lb) 08/14/2023 3:42 PM EST Height 160 cm (5' 3 ) 08/14/2023 3:42 PM EST Body Mass Index 38.79 08/14/2023 3:42 PM EST Plan of Treatment Health Maintenance Due Date Last Done Comments Depression Screening 1998 HIV Screening 1998 Lipid Panel 1998 Diabetes: Foot Exam 2008 Eye Exam 2008 Alcohol/Substance Use Screening 2010 Family Planning (PISQ) 2013 HPV Vaccines (1 - 3-dose series) 2013 Pneumococcal Vaccine: Pediatrics (0 to 5 Years) and At-Risk Patients (6 to 49) Years) (2 of 2 - PPSV23) 08/12/2015 06/17/2015 Hepatitis C Screening 2016 Diabetes: Urine Protein Screening 2017 Hepatitis B Vaccines (1 of 3 - 19+ 3-dose series) 2017 Dental Oral Exam 05/31/2023 11/28/2022 Dental Prophylaxis 06/28/2023 12/25/2022 Diabetes: Hemoglobin A1C 11/13/2023 08/14/2023 Dental X-Ray: Bitewings 11/30/2023 11/28/2022 COVID-19 Vaccine ( season) 2024 Influenza Vaccine (#1) 2024 , 05/13/2020, 06/12/2018, Additional history exists Tobacco Screening 08/14/2024 08/14/2023 SDOH Screening 03/04/2025 03/04/2024 Pap Smear 08/01/2025 08/01/2022 Dental X-Ray: Full Mouth 11/29/2025 11/28/2022 DTaP/Tdap/Td Vaccines (4 - Td or Tdap) 09/22/2032 09/22/2022, 12/12/2021, 11/25/2018 Zoster Vaccines (1 of 2) 2048 RSV Patients and Patients Aged 60 years or older (1 - 1-dose 75+ series) 2073 Hepatitis A Vaccines Completed 08/29/2016, 06/17/20 15 Meningococcal Vaccine Aged Out 11/25/2018 No leah camilla eligible based on patient's age to complete this topic HIB Vaccines Aged Out No longer eligi ble based on patient's age to complete this topic IPV Vaccines Aged Out No longer eligi ble based on patient's age to complete this topic RSV under 20 months Aged Out No longe r eligible based on patient's age to complete this topic Rotavirus Vaccines Aged Out No longer eligible based on patient's age to complete this topic Procedures Procedure Name Priority Date/Time Associated Diagnosis Comments XR KNEE 4+ VIEWS LEFT Routine 08/09/2024 4:59 AM EST POCT GLYCATED HEMOGLOBIN, TOTAL Routine 08/14/2023 3:57 PM EST Hyperglycemia due to type 1 diabetes mellitus ([facility]/HCC) PROPHYLAXIS - ADULT Routine 12/25/2022 2 :00 PM EDT DIAGNOSTIC - DIAGNOSTIC IMAGING - INTRAORAL - COMPREHENSIVE SERIES OF RADIOGRAPHIC IMAGES Routine 11/28/2022 1:00 PM EDT Dental caries Dental abscess Dental plaque COMPREHENSIVE ORAL EVALUATION - NEW OR ESTABLISHED PATIENT Routine 11/28/2022 1:00 PM EDT Dental caries Dental abscess Dental plaque HM PAP/HPV Routine 08/01/2022 12:00 AM EST from Last 3 Months or Most Recently Relevant to Health Maintenance Results * XR Knee 4+ Views Left (08/09/2024 4:59 AM EST) Anatomical Region Laterality Modality Lower Extremities, Knee Left Radiogra phic Imaging 08/09/2024 4:59 AM EST Narrative 08/09/2024 5:00 AM EST ? [facility] ?[address] ?[place] [address] ?XRay Report ? Signed ? Patient: Mariangel Ha ?MR#: [id number] ?? 19 ? : 2000 ?Acct:[id number] ? Age/Sex: 23 / F ?ADM Date: 08/09/24 ? Loc: HO.ED ? Attending Dr: ? Ordering Physician: Generic ED Physician ?? Date of Service: 08/09/24 ?? Procedure(s): XR knee LT 4V ?? Accession Number(s): [id number] ? cc: Generic ED Physician; [facility] ? CLINICAL HISTORY: L. knee pain [...] by Tay Flores MD in OV> ? 08/09/24 045 ? DD/ 0459 ? TD/TT: 08/09/24 0459 ? Industrial Roof Plumber: ? Procedure Note Stone, Image - 08/09/[address] [address] XRay Report Signed Patient: Sue Ha#: [id number] 19 : 2000Acct:[id number] Age/Sex: 23 / FADM Date: 08/09/24 Loc: HO.ED Attending Dr: Ordering Physician: Generic ED Physician Date of Service: 08/09/24 Procedure(s): XR knee LT 4V Accession Number(s): [id number] cc: Generic ED Physician; [facility] CLINICAL HISTORY: L. knee pain swelling, [...] in OV> 08/09/24 0459 DD/ TD/TT: 08/09/24458 Industrial Roof Plumber: [facility] External Provider IMG XR PROCEDURES Final Result * (ABNORMAL) POCT HGB A1C (08/14/2023 3:57 PM EST) Hemoglobin A1C 7.6(A) 4.0 - 6.0 % QC Media Lot # [id number] Lot# Expiration Date 69,825 Blood 08/14/2023 3:57 PM EST Cailin Hidalgo PATCHER BOWLING BALL POINT OF CARE TEST ENTER/EDIT O RDERABLES Final Result * Hm Pap Smear (08/01/2022 12:00 AM EST) Historical Provider HEALTH MAINTENANCE Final Result from Last 3 Months or Most Recently Relevant to Health Maintenance Insurance * Guarantor: Dilcia, Tanairy Account Type Relation to Patient Date of Phone Billing Address Personal/Family Self [address] Care Teams Tar Heat Exchanger Cleaner Relationship Specialty Start Date End Date Yesica Duran MD [address] [place] [address] PCP - General Internal Medicine 04/07/24
--- OUTSIDE RECORDS SUMMARY | 2024-09-07 16:21 | XMS_ITS | Encounter Summary ---
Author Organization [employer] Address 75 [facility] 7t [place] [address] Care Team Providers Care Etymology Teacher Name Role Phone Georgette Rossi Primary Care Provider [phone] Cailin Hidalgo Primary Care Provider [phone] Yesica Duran MD Primary Care Provide r Encounter Details Date Type Department Care Team (Late st Contact Info) Description 10/23/2022 Abstract [facility] MEDICINE [address] [place] [address] Georgette Rossi FNP [address] [place] [address] Dept [place] [address] Social History Tobacco Use Types Packs/Day Years Used Date Smoking Tobacco: Never Assessed Comments Unknown Sex and Gender Information Value Date Recorded Sex Assigned at Female 06/04/2022 10:29 AM EDT Legal Sex Female 10:29 AM EDT Gender Identity Female 06/04/2022 10:29 AM EDT Sexual Orientation Straight 06/04/2022 10 :29 AM EDT documented as of this encounter Plan of Treatment Not on file documented as of this encounter Procedures Procedure Name Priority Date/Time Associated Diagnosis Comments HM PAP/HPV Routine 08/01/2022 12:00 AM EST documented in this encounter Results * Hm Pap Smear (08/01/2022 12:00 AM EST) us Historical Provider HEALTH MAINTENANCE Final Result documented in this encounter Visit Diagnoses Not on filedocumented in this encounter Care Teams Etymology Teacher Relationship Specialty Start Date End Date Georgette Rossi FNP PCP - General Family Medicine 03/29/22 01/09/23 Cailin Hidalgo FNP [address] [place] [address] PCP - General Family Medicine 01/30/23 04/06/24 Yesica Duran MD [address] [place] [address] PCP - General Internal Medicine 04/07/24 documented as of this encounter
--- OUTSIDE RECORDS SUMMARY | 2024-09-07 16:22 | XMS_ITS | Encounter Summary ---
Author Organization [employer] Address 75 [facility] [address] 7t [place] [address] Care Team Providers Care Farm Machinery Engine Mechanic Name Role Phone Georgette Rossi [facility] Primary Care Provider [phone] Cailin Hidalgo [facility] Primary Care Provider [phone] Yesica Duran MD Primary Care Provide r Reason for Visit * Reason Comments Med Refill Encounter Details Date Type Department Care Team (Late st Contact Info) Description 12/26/2022 Refill [facility] ADULT DENTAL [address] [place] [address] No Leblanc DDS [address] [place] [address] Social History Tobacco Use Types Packs/Day Years [...] suspected to have Coronavirus/COVID-19? No / Unsure 12/25/2022 2:00 PM EDT documented as of this encounter Miscellaneous Notes * Telephone Encounter - No Leblanc DDS - 12/26/2022 8:23 AM EDT Approving, but needs appt for additional refills. documented in this encounter Plan of Treatment Not on file documented as of this encounter Visit Diagnoses Not on filedocumented in this encounter Care Teams Farm Machinery Engine Mechanic Relationship Specialty Start Date End Date Georgette Rossi FNP PCP - General Family Medicine 03/29/22 01/09/23 Cailin Hidalgo FNP [address] [place], [place] [phone] PCP - General Family Medicine 01/30/23 04/06/24 Yesica Duran MD [address] [place], [place] [phone] PCP - General Internal Medicine 04/07/24 documented as of this encounter
== END 2024-09-07 15:29 | disposition home or self-care (01) ==
PROVIDERS: Visit Provider Physician Assistant
DX: S83.002A Unspecified subluxation of left patella, initial encounter (principal)
CPT/HCPCS: 99203

== ENCOUNTER → 2024-09-07 14:48 | Outpatient (BNV) | payer MEDICAID, SELFPAY | PROVIDERS: Visit Provider Radiology Vascular & Interventional Radiology | DX: M22.2X2 Patellofemoral disorders, left knee (principal) | CPT/HCPCS: 73560 ==

== ENCOUNTER 2024-10-06 19:10 | Emergency (ER) | payer MEDICAID, SELFPAY ==
--- NOTE | ~2024-10-06 | CT_ITS ---
CLINICAL HISTORY: back pain, urinary sxs CT abdomen and pelvis without contrast Comparison: None Findings: No consolidation or effusion. Unremarkable gallbladder. No biliary ductal dilatation. Unenhanced liver, spleen, pancreas, adrenal glands and kidneys within normal limits. No renal or ureteral stones and no hydronephrosis or hydroureter. No bowel obstruction, pneumoperitoneum, or pneumatosis. Appendix not identified. No pericecal inflammatory changes. Right lower quadrant subcentimeter mesenteric nodes. Uterus and adnexal regions within normal limits. Urinary bladder is unremarkable. The bones are intact. IMPRESSION: 1. No renal or ureteral stones. 2. Subcentimeter right lower quadrant mesenteric nodes may represent mild adenitis. This document has been electronically signed by: Cyndi Jason MD on 10/06/2024 21:09:02
[2024-10-06 19:37] VITALS: BP 110/69; PULSE 86; RESP 16; TEMP 36.8; O2SAT 98; BMI 38.1
--- NOTE | 2024-10-06 19:43 | ED.FEMALEGU ---
HPI - Female Genitourinary General Chief complaint: Urogenital-Female Stated complaint: uti, back pain Time Seen by Provider: 10/07/24 05:42 Source: patient Mode of arrival: ambulatory Limitations: no limitations History of Present Illness ED Provider: Dr. Gail Crain HPI Narrative: Patient comes to the emergency room complaining bilateral flank pain. Patient states that she was recently treated for UTI. Late September patient was treated with cephalexin, continued having symptoms, then she was switched to Macrobid and patient states that she still has dysuria and now has bilateral flank pain. Patient denies fever chills. Patient denies hematuria. Patient states that she is known to multiple UTIs. Related Data Home Medications ?Medication ?Instructions ?Recorded ?Confirmed insulin glargine 100 unit/mL (3 36 unit subcut DAILY 09/07/24 09/07/24 mL) subcutaneous pen (Lantus Solostar U-100 Insulin) semaglutide (weight loss) 0.25 0.25 mg subcut QWEEK 09/07/24 09/07/24 mg/0.5 mL subcutaneous pen injector (Wegovy) Previous Rx's ?Medication ?Instructions ?Recorded ibuprofen 800 mg tablet 800 mg PO Q8H PRN pain 30 days #90 09/07/24 tabs ketorolac 10 mg tablet 10 mg PO Q8H PRN pain #12 tabs 10/07/24 levofloxacin 750 mg tablet 750 mg PO DAILY #9 tabs 10/07/24 phenazopyridine 100 mg tablet 100 mg PO TID 6 doses #6 tabs 10/07/24 Allergies Allergy/AdvReac Type Severity Reaction Status Date / Time Penicillins Allergy Intermediate Swelling Verified 10/06/24 19:37 mushroom Allergy Swelling Verified 10/06/24 19:37 Review of Systems Review of Systems: Constitutional : No Weight loss, No Fever, No Chills, No Night Sweats, No Fatigue, No Malaise ENT/Mouth : No Hearing loss, No Ear Pain, No Nasal Congestion, No Sinus Pain, No Hoarseness, No sore throat, No Rhinorrhea, No Swallowing Difficulty Eyes: No Eye Pain, No Swelling, No Redness, No Foreign Body, No Discharge, No Vision Changes Cardiovascular : No Chest Pain, No SOB, No Dyspnea on Exertion, No Orthopnea, No Edema, No Palpitations Respiratory : No Cough, No Sputum, No Wheezing, No Smoke Exposure, No Dyspnea Gastrointestinal : No Nausea, No Vomiting, No Diarrhea, No Constipation, No abdominal Pain, No Hematochezia, No Melena Genitourinary : no irregular bleeding, complaining of, No Urinary Frequency, No Hematuria, No Urinary Incontinence, No Urgency, complaining of bilateral Flank Pain, No Urinary Flow Changes, No Hesitancy Musculoskeletal : No joint pain, No Myalgias, No Joint Swelling Skin : No Skin Lesions, No rash Neuro : No Weakness, No Numbness, No Paresthesias, No Loss of Consciousness, No Dizziness, No Headache Psych : No Anxiety/Panic, No Depression, No SI/HI/AH/VH, No Social Issues, Heme/Lymph: No Bruising, No Bleeding,No Lymphadenopathy Endocrine : No Polyuria, No Polydipsia, No Temperature Intolerance [facility] Past Medical History Medical History Dog bite Hyperthyroidism Diabetes type I Social History Social History (Updated 09/07/24 @ 14:57 by Caridad Fernandez Wale) Alcohol intake: never Patient Tobacco Use Status: Never used Tobacco Smoked in Last 30 Days: No Use of substances other than those prescribed or required for medical reasons: No Advance Directives: No Advance Directives Information Provided: Yes Do you have a plan to hurt others: No Plan Current occupational status: unemployed Physical Exam Vital Signs: Vital Signs: Last Vital Signs Temp 98.3 F 10/07/24 00:11 Pulse 84 10/07/24 00:11 Resp 16 10/07/24 00:11 BP 120/70 10/07/24 00:11 Pulse Ox 99 10/07/24 00:11 O2 Del Method Room Air 10/07/24 00:11 BMI result Body Mass Index 38.1 Const: Other: Appearance: Alert. Oriented X3. No acute distress. Well-appearing Eyes: Pupils equal, round and reactive to light. ENT: Pharynx normal. Neck: Normal inspection. Neck supple. No lymph nodes noted. No crepitus CVS: Normal heart rate and rhythm. Pulses normal. Normal S1 and S2 Respiratory: No respiratory distress. Breath sounds normal. No Wheezing. No rales Abdomen: Soft and nontender. No rigidity. No distention. Bilateral CVA tenderness Skin: Skin warm and dry. Normal skin color. Normal skin turgor. Extremities: No lower extremity edema. No Lacerations. No Rash Neuro: Oriented X 3. No motor deficit. No sensory deficit. Moving all extremities. No slurred speech. CN 2 through 12 grossly intact Psych: calm, cooperative, normal affect Course Course Course Narrative: This is an RME: Additional HPI, ROS, PE not included below will be deferred to primary provider. RME assessment and note performed by: Olga Jeong PA-C This is a 18-zuv[age]-female who presents to the ER with complaints of urinary symptoms. Patient has had 2 rounds of antibiotics however states that her symptoms have not improved. She has been given Keflex for her symptoms. She states that she completed this round of antibiotics, she then was prescribed Macrobid which she has already taken 2 doses of however states that her symptoms have not improved. Reporting back pain, and urinary symptoms. She has a type 1 diabetic. Plan: Labs, UA, CT abdomen and pelvis Medications Administered Discontinued Medications Generic Name Dose Route Start Last Admin Trade Name Jordanq PRN Reason Stop Dose Admin Ketorolac Tromethamine 60 mg 10/07/24 05:50 10/07/24 05:59 Ketorolac Tromethamine 60 Mg/2 Ml Vial IM 10/07/24 05:51 60 mg ONCE ONE Administration Levofloxacin 750 mg 10/07/24 05:50 10/07/24 06:00 Levofloxacin 750 Mg Tablet PO 10/07/24 05:51 750 mg ONCE ONE Administration Phenazopyridine HCl 100 mg 10/07/24 05:50 10/07/24 05:59 Phenazopyridine Hcl 100 Mg Tablet PO 10/07/24 05:51 100 mg ONCE ONE Administration Medical Decision Making Medical Decision Making [facility] Narrative: My interpretation of labs: Patient's white blood cell count 9.9, no significant abnormality in patient's hematology and chemistry. Urinalysis positive for UTI. Patient fell treatment with cephalexin and Macrobid. Patient has no fever, no chills, normal white blood cell count, no episodes of hypotension, CT scan of the abdomen pelvis does not show any significant abnormality. Miles subcentimeter right lower quadrant mesenteric nodes I discussed with the patient that if she does not respond to levofloxacin, she will need to be admitted. Last few times, patient has grown Staphylococcus saprophyticus in the urine. However she does have history of E coli UTIs. Differential Diagnosis Differential Diagnoses: The differential diagnosis associated with the presentation includes (UTI, pyelonephritis, ureterolithiasis, renal colic) Admission/Observation Consideration of admission/observation: Escalation of care including admission/observation considered (Given patient's multiple doses of antibiotic with symptoms, admission was considered) Lab Data MDM Lab Attestation statement: I reviewed the patient's lab results. 10/06/24 19:59 10/06/24 19:59 Labs: Lab Results 10/06/24 10/07/24 Range/Units 19:59 00:28 WBC 9.9 (4.8-10.8) X10*3/uL RBC 4.49 (4.20-5.50) X10*6/uL Hgb 12.5 (12.0-16.0) g/dl Hct 38.9 (37.0-47.0) % MCV 86.6 (80.0-98.0) fL MCH 27.8 (27.0-33.0) pg MCHC 32.1 (31.0-35.0) g/dl RDW 14.1 (11.0-16.0) % Plt Count 384 (160-400) X10*3/uL MPV 9.3 L (9.4-12.3) fL Immature Gran % (Auto) 0.2 (0.0-0.4) % Neut % (Auto) 63.4 (45-73) % Lymph % (Auto) 26.5 (20-40) % [place] % (Auto) 8.4 (2-11) % Eos % (Auto) 1.0 (0-4) % Baso % (Auto) 0.5 (0-2) % Lymph # (Auto) 2.6 (1.2-4.9) X10*3/uL [place] # (Auto) 0.8 (0.1-1.2) X10*3/uL Eos # (Auto) 0.1 (0.0-0.4) X10*3/uL Baso # (Auto) 0.1 (0.0-0.2) X10*3/uL Abs Immat Gran (auto) 0.02 (0.00-0.03) X10*3/uL Absolute Neuts (auto) 6.3 (2.0-8.3) x10*3/uL Absolute Nucleated RBC 0.000 (0.0-0.012) X10*3/uL Nucleated RBC % (auto) 0.0 (0.0-0.2) /100WBC Sodium 142 (135-145) mmol/L Potassium 4.4 (3.3-5.1) mmol/L Chloride 108 (96-108) mmol/L Carbon Dioxide 24 (22-29) mmol/L Anion Gap 14 (12-20) BUN 11 (9-16) mg/dL Creatinine 0.73 (0.5-1.4) mg/dL Estim Creat Clear Calc 131.1 Estimated GFR > 60 Random Glucose 157 H (60-115) mg/dL Calcium 8.9 (8.4-10.2) mg/dL Total Bilirubin 0.6 (0.0-1.0) mg/dL Direct Bilirubin 0.2 (0.0-0.5) mg/dL AST 29 (5-31) U/L ALT 13 (0-31) U/L Alkaline Phosphatase 85 (39-117) U/L Total Protein 7.5 (6.5-8.0) g/dL Albumin 3.9 (3.5-5.0) g/dL Beta HCG, Quant < 2 mIU/mL Urine Color Dark Yellow Urine Appearance Clear Urine pH 7.0 (5.0-9.0) Ur Specific [place] 1.020 (1.005-1.025) Urine Protein Negative (Neg-Trace) mg/dL Urine Glucose (UA) Negative (Negative) mg/dL Urine Ketones 15 (Negative) mg/dL Urine Blood Negative (Negative) Urine Nitrite Positive H (Negative) Ur Leukocyte Esterase Small (1+) H (Negative) Urine RBC 0-2 (0-2) /HPF Urine WBC 0-5 (0-5) /HPF Ur Squamous Epith Cells 3-5 (0-2) /HPF Urine Bacteria Trace (None Seen) Hyaline Casts 0-2 (0-2) /LPF Chlam trachomat DNA PCR NOT DETECTED (Not Detect.) N.gonorrhoeae DNA (PCR) NOT DETECTED (Not Detect.) Independent Interpretation I performed an independent interpretation of an: CT Scan Radiology Impression Discussion of test interpretation with radiology: I have reviewed the radiologist's reading. Radiologist Impression: No consolidation or effusion. Unremarkable gallbladder. No biliary ductal dilatation. Unenhanced liver, spleen, pancreas, adrenal glands and kidneys within normal limits. No renal or ureteral stones and no hydronephrosis or hydroureter. No bowel obstruction, pneumoperitoneum, or pneumatosis. Appendix not identified. No pericecal inflammatory changes. Right lower quadrant subcentimeter mesenteric nodes. Uterus and adnexal regions within normal limits. Urinary bladder is unremarkable. The bones are intact. IMPRESSION: 1. No renal or ureteral stones. 2. Subcentimeter right lower quadrant mesenteric nodes may represent mild adenitis. Discharge Plan Discharge Clinical Impression: Pyelonephritis Patient Disposition: Home, Self-Care Instructions: Kidney Infection (ED) Additional Instructions: Please follow-up with your primary care physician tomorrow. If you have any worsening or new symptoms, please return to the emergency room or call 911 Prescriptions: New levofloxacin 750 mg tablet 750 mg PO DAILY Qty: 9 0RF ketorolac 10 mg tablet 10 mg PO Q8H PRN (Reason: pain) Qty: 12 0RF Rx Instructions: Do not use this medication with ibuprofen, only Tylenol if needed phenazopyridine 100 mg tablet 100 mg PO TID Qty: 6 0RF No Action Wegovy 0.25 mg/0.5 mL pen injector 0.25 mg subcut QWEEK insulin glargine [Lantus Solostar U-100 Insulin] 100 unit/mL (3 mL) insulin pen 36 unit subcut DAILY ibuprofen 800 mg tablet 800 mg PO Q8H PRN (Reason: pain) 30 Days Qty: 90 3RF Print Language: French
[2024-10-06 20:05] LABS: MANUAL DIFF FLAG NO
[2024-10-06 20:07] LABS: Basophils Absolute Auto 0.1 X10*3/uL (0.0-0.2); Basophils Percent Auto 0.5 % (0-2); Eosinophils Absolute Auto 0.1 X10*3/uL (0.0-0.4); Hematocrit 38.9 % (37.0-47.0); Hemoglobin 12.5 g/dl (12.0-16.0); Imm Gran Abs Auto 0.02 X10*3/uL (0.00-0.03); Imm Gran Pct Auto 0.2 % (0.0-0.4); Lymphocytes Absolute Auto 2.6 X10*3/uL (1.2-4.9); Lymphocytes Percent Auto 26.5 % (20-40); Mean Corpuscular HGB Conc 32.1 g/dl (31.0-35.0); Mean Corpuscular Hemoglobin 27.8 pg (27.0-33.0); Mean Corpuscular Volume 86.6 fL (80.0-98.0); Mean Platelet Volume 9.3 fL (9.4-12.3); Monocytes Absolute Auto 0.8 X10*3/uL (0.1-1.2); Monocytes Percent Auto 8.4 % (2-11); Neutrophils Absolute Auto 6.3 x10*3/uL (2.0-8.3); Neutrophils Percent Auto 63.4 % (45-73); Platelet Count 384 X10*3/uL (160-400); Red Blood Count 4.49 X10*6/uL (4.20-5.50); Red Cell Distribution Width 14.1 % (11.0-16.0); White Blood Count 9.9 X10*3/uL (4.8-10.8)
[2024-10-06 20:20] LABS: Alanine Aminotransferase 13 U/L (0-31); Albumin Level 3.9 g/dL (3.5-5.0); Alkaline Phosphatase 85 U/L (39-117); Anion Gap 14 (12-20); Aspartate Amino Transferase 29 U/L (5-31); Bilirubin Direct 0.2 mg/dL (0.0-0.5); Bilirubin Total 0.6 mg/dL (0.0-1.0); Blood Urea Nitrogen 11 mg/dL (9-16); Calcium 8.9 mg/dL (8.4-10.2); Carbon Dioxide 24 mmol/L (22-29); Chloride 108 mmol/L (96-108); Creatinine Clr Calc Pharmacy 131.1; Estimated Glomerular Filt Rate > 60; Glucose Random 157 mg/dL (60-115); Potassium 4.4 mmol/L (3.3-5.1); Sodium 142 mmol/L (135-145); Total Protein 7.5 g/dL (6.5-8.0)
[2024-10-06 20:27] LABS: HCG Quantitative < 2 mIU/mL
[2024-10-07 00:11] VITALS: BP 120/70; PULSE 84; RESP 16; TEMP 36.8; O2SAT 99
[2024-10-07 00:37] LABS: Appearance Urine Clear; Color Urine Dark Yellow; Glucose Urine UA Negative (Negative); Leukocyte Esterase Urine Small (1+) (Negative); Nitrite Urine Positive (Negative); UMIC TRIGGER UACC YES; Urine Blood Negative (Negative); Urine Ketones 15 mg/dL (Negative); Urine Protein Negative (Neg-Trace)
[2024-10-07 00:47] LABS: Bacteria Urine Trace (None Seen); Hyaline Casts Urine 0-2 /LPF (0-2); RBC Urine 0-2 /HPF (0-2); UACC Culture Trigger YES; WBC Urine 0-5 /HPF (0-5)
--- NOTE | 2024-10-07 01:53 | PC.NURSE ---
pt brought to RP from . ambulated independently no distress noted. waiting to be seen by ED provider.
[2024-10-07 02:04] LABS: CT PCR NOT DETECTED (Not Detect.); NG PCR NOT DETECTED (Not Detect.)
--- NOTE | 2024-10-07 05:39 | PC.NURSE ---
pt continues to wait to be seen by ED provider.
[2024-10-07] MEDS: Ketorolac Tromethamine 60 MG/2 ML VIAL IM (05:59)
[2024-10-07] MEDS: Phenazopyridine HCL 100 MG TABLET PO (05:59)
[2024-10-07] MEDS: levoFLOXacin 750 MG TABLET PO (06:00)
[2024-10-07 06:04] VITALS: BP 118/72; PULSE 81; RESP 16; TEMP 36.7; O2SAT 97
[2024-10-07 06:05] VITALS: BP 118/72; PULSE 81; RESP 16; TEMP 36.7; O2SAT 97
== END 2024-10-07 06:06 | disposition home or self-care (01) ==
PROVIDERS: Physician Assistant Medical; Emergency Provider Emergency Medicine
DX: N12 Tubulo-interstitial nephritis, not specified as acute or chronic (principal); E10.9 Type 1 diabetes mellitus without complications
CPT/HCPCS: 36415; 74176; 80048; 80076; 81001; 84702; 85025; 87086; 87491; 87591; 96372; 99284; J1885

== ENCOUNTER → 2024-10-06 19:46 | Outpatient (BNV) | payer MEDICAID, SELFPAY | PROVIDERS: Visit Provider Specialist | DX: I88.0 Nonspecific mesenteric lymphadenitis (principal) | CPT/HCPCS: 74176 ==

== ENCOUNTER 2025-05-26 18:52 | Outpatient (REF) | payer MEDICAID, SELFPAY ==
--- OUTSIDE RECORDS SUMMARY | 2025-05-26 14:00 | XMS_ITS | Encounter Summary ---
Author Organization [employer] Address [address] [place] [address] Care Team Providers Care Payloader Machine Operator Name Role Phone Corin Dbuon Primary Care Provider [phone] Reason for Visit * Reason Comments transfer patient Encounter Details Date Type Department Care Team ([facility] st Contact Info) Description 05/26/2025 2:00 PM EDT Office Visit [facility] [address] [place] [address] Corin Dubon FNP [address] [place] [address] Adult wellness visit (Primary Dx); Hyperglycemia due to type 1 diabetes mellitus (HCC); UTI symptoms; Encounter for immunization Social History Tobacco Use Types Packs/Day Years Used Date Smoking Tobacco: Never Smokeless Tobacco: Never Alcohol Use Standard Drinks/Week Comments Never 0 (1 standard drink = 0.6 oz pur e alcohol) Depression Answer Date Recorded Patient Health Questionnaire-9 Score 18 05/26/2025 Patient Health Questionnaire-9 Score 18 05/26/2025 Last PHQ-9: Questionnaire Data Not on file 1 Housing Stability Answer Date Recorded What is your housing situation today? I have yohana de 05/19/[address] you li ve. Do you have problems with any of the following? None of the above 05/19/2025 Food Insecurity Answer Date Recorded Within the past 12 months, y ou worried that your food would run out before you got money to buy more: Never True 05/19/2025 Within the past 12 months,th e food you bought just didn't last and you didn't have enough money to get more: Never True Transportation Answer Date Recorded In the past 12 months, has l ack of transportation kept you from medical appts, meetings, work or from getting things needed for daily living? No 05/19/2025 Utilities Answer Date Recorded In the past 12 months, has t he electric, gas, oil or water company threatened to shut off services in your home? No 05/19/2025 Depression Answer Date Recorded Patient Health Questionnaire-2 Score 2 05/26/2025 Internet Access Answer Date Recorded Internet Access Q1 Yes 05/19/2025 Internet Access Q2 Not on file 05/19/2025 Comments No Sex and Gender Information Value Date Recorded Sex Assigned at Female 06/04/2022 10:29 AM EDT Legal Sex Female 10:29 AM EDT Gender Identity Female 06/04/2022 10:29 AM EDT Sexual Orientation Straight 06/04/2022 10 :29 AM EDT documented as of this encounter Last Filed Vital Signs Vital Sign Reading Time Taken Comments Blood Pressure 120/78 05/26/2025 2:16 PM EDT Pulse 78 05/26/2025 2:16 PM EDT Temperature 37 C (98.6 F) 05/26/2025 2:16 PM EDT Respiratory Rate 18 05/26/2025 2:16 PM EDT Oxygen Saturation - - Inhaled Oxygen Concentration - - Weight 94.3 kg (207 lb 12.8 oz) 05/26/2025 2:16 PM EDT Height 161.3 cm (5' 3.5 ) 05/26/2025 2:16 PM EDT Body Mass Index 36.23 05/26/2025 2:16 PM EDT documented in this encounter Functional Status * Over the past 2 weeks, how often have you been bothered by any of the following problems? Question Answer Date of Assessment Author Patient Health Questionnaire -2 Score 2 05/26/2025 3:09 PM EDT Marcia Man MA * Little interest or pleasure in doing things Answer Date of Assessment Author Several days 05/26/2025 3:09 PM EDT Marcia Man MA * Feeling down, depressed, or hopeless Answer Date of Assessment Author Several days 05/26/2025 3:09 PM EDT Marcia Man MA * Trouble falling or staying asleep, or sleeping too much Answer Date of Assessment Author Nearly every day 05/26/2025 3:09 PM Marcia Olivas MA * Feeling tired or having little energy Answer Date of Assessment Author More than half the days 05/26/2025 3:09 PM EDT Marcia Paz MA * Poor appetite or overeating Answer Date of Assessment Author Nearly every day 05/26/2025 3:09 PM EDT Marcia Man MA * Feeling bad about yourself - or that you are a failure or have let yourself or your family down Answer Date of Assessment Author More than half the days 05/26/2025 3:09 PM EDT Marcia Paz MA * Trouble concentrating on things, such as reading the newspaper or watching television Answer Date of Assessment Author Nearly every day 05/26/2025 3:09 PM JEFFT Marcia Man MA * Moving or speaking so slowly that other people could have noticed? Or the opposite - being so fidgety or restless that you have been moving around a lot more than usual. Answer Date of Assessment Author Nearly every day 05/26/2025 3:09 PM Marcia Olivas MA * Thoughts that you would be better off or hurting yourself in some way Answer Date of Assessment Author Not at all 05/26/2025 3:09 PM Marcia Olivas MA * Patient Health Questionnaire-9 Score Answer Date of Assessment Author 18 05/26/2025 3:09 PM Marcia Olivas MA * How difficult have these problems made it for you to do your work, take care of things at home, or get along with other people? Answer Date of Assessment Author Very difficult 05/26/2025 3:09 PM Marcia Olivas MA * Over the last 2 weeks, how often have you been bothered by any of the following problems? Question Answer Date of Assessment Author Feeling nervous, anxious, or on edge 3 05/26/2025 3:09 PM Marcia Olivas MA Not being able to stop or co ntrol worrying 3 05/26/2025 3:09 PM EDT Marcia Man MA Worrying too much about diff erent things 3 05/26/2025 3:09 PM EDT Marcia Man MA Trouble relaxing 3 05/26/2025 3:09 PM EDT Marcia Paz MA Being so restless that it is hard to sit still 3 05/26/2025 3:09 PM EDT Marcia Man MA Becoming easily annoyed or irritable 2 05/26/2025 3:09 PM EDT Marcia Man MA Feeling afraid as if somethi ng awful might happen 0 05/26/2025 3:09 PM EDT Marcia Man MA IAN-7 Total Score 17 05/26/2025 3:09 PM EDT Marcia Man MA documented as of this encounter Plan of Treatment Upcoming Encounters Date Type Department Care Team (Late st Contact Info) Description 07/07/2025 3:30 PM EST Office Visit [facility] [address] [place] [address] Corin Dubon FNP [address] [place] [address] Scheduled Orders Name Type Priority Associated Diagnoses Orde r Schedule Comprehensive Metabolic Panel Lab Routine Adult Wellness Visit Expected: 05/26/2025 (Approximate), Expires: 05/25/2026 Hepatitis B Core Antibody, Total Lab Routine Adult Wellness Visit Expected: 05/26/2025 (Approximate), Expires: 05/25/2026 TSH Lab Routine Adult wellness visit Expected: 05/26/2025 (Approximate), Expires: 05/25/2026 Hepatitis B Surface Antibody, Qualitative Lab Routine Adult wellness visit Expected: 05/26/2025 (Approximate), Expires: 05/25/2026 Hepatitis B surface antigen, EIA Lab Routine Adult wellness visit Expected: 05/26/2025 (Approximate), Expires: 05/25/2026 Hepatitis C Antibody with Reflex to HCV, RNA, Quantitative, Real-Time PCR Lab Routine Adult wellness visit Expected: 05/26/2025, Expires: 05/25/2026 CBC auto differential Lab Routine Adult wellness visit Expected: 05/26/2025 (Approximate), Expires: 05/25/2026 HIV-1/2 Antigen and Antibodies, Fourth Generation, with Reflexes Lab Routine Adult wellness visit Expected: 05/26/2025 (Approximate), Expires: 05/25/2026 Lipid Panel, Standard Lab Routine Adult wellness visit Expected: 05/26/2025 (Approximate), Expires: 05/25/2026 Chlamydia/N. Gonorrhoeae, PCR, Urine Lab Routine Adult wellness visit Ordered: 05/26/2025 Bacterial Vaginosis Panel Microbiology Routine Hyperglycemia due to type 1 diabetes mellitus (HCC) Ordered: 05/26/2025 Urinalysis, Complete, with Reflex to Culture Lab Routine UTI symptoms Expected: 05/26/2025 (Approximate), Expires: 05/26/2026 documented as of this encounter Procedures Procedure Name Priority Date/Time Associated Diagnosis Comments POCT URINALYSIS DIPSTICK Routine 05/26/2025 3:04 PM EDT Hyperglycemia due to type 1 diabetes mellitus (HCC) POCT GLUCOSE Routine 05/26/2025 2:22 PM EDT Hyperglycemia due to type 1 diabetes mellitus (HCC) POCT GLYCATED HEMOGLOBIN, TOTAL Routine 05/26/2025 2:21 PM EDT Hyperglycemia due to type 1 diabetes mellitus (HCC) documented in this encounter Results * (ABNORMAL) POCT Urinalysis (05/26/2025 3:04 PM EDT) Color, UA Yellow Clarity, UA Clear Glucose, UA Negative Bilirubin, UA Negative Ketones, UA Positive Spec Grav, UA 1.020 Blood, UA Positive(A) Negative, None Detected Comment:intact pH, UA 7.0 Protein, UA Trace Urobilinogen, UA 2.0 Leukocytes, UA Trace Negative, Rare, Trace Nitrite, UA Negative Negative, None Detected QC Media Lot # [id number] Lot# Expiration Date [id number] Urine (Urine, Random) 05/26/2025 3:04 PM EDT us Corin Okepifanio DEXTERP POINT OF CARE TEST ENTER/EDIT ORDERABLES Final Result * POCT Glucose (05/26/2025 2:22 PM EDT) Pathologist [facility] Glucose Blood, POC 127 60 - 200 mg/dL QC Media Lot # [id number] Lot# Expiration Date [id number] Blood Capillary blood specimen / Unknown 05/26/2025 2:22 PM EDT Corin Okepifanio CLOSING SPECIALIST POINT OF CARE TEST ENTER/EDIT ORDERABLES Final Result * (ABNORMAL) POCT Hgb A1c (05/26/2025 2:21 PM EDT) [facility] Hemoglobin A1C 7.2(A) 4.0 - 5.7 % QC Media Lot # [id number] Lot# Expiration Date [id number] Blood 05/26/2025 2:21 PM EDT Corin Oluepifanio CLOSING SPECIALIST POINT OF CARE TEST ENTER/EDIT ORDERABLES Final Result documented in this encounter Visit Diagnoses Diagnosis Adult wellness visit- Primary Hyperglycemia due to type 1 diabetes mellitus (HCC) UTI symptoms Encounter for immunization documented in this encounter Additional Health Concerns Assessment Noted Time PHQ-9 Depression Total Score: 18 025 3:09 PM EDT documented as of this encounter Care Teams Payloader Machine Operator Relationship Specialty Start Date End Date Corin Dubon FNP [address] [place] [id number] PCP - General Family Medicine 04/27/25 documented as of this encounter
[2025-05-26 19:13] LABS: Appearance Urine Clear; Glucose Urine UA Negative (Negative); PH 8.5 (5.0-9.0); Specific Gravity - Urine 1.015 (1.005-1.025); UMIC TRIGGER UACC YES
[2025-05-26 19:38] LABS: UACC Culture Trigger YES
--- OUTSIDE RECORDS SUMMARY | 2025-05-26 22:24 | XMS_ITS | Clinical Summary ---
Author Organization [employer] Address [address] [facility] 7[address] [place] [address] Care Team Providers Care Coat Fitter Name Role Phone Corin Dubon DATA ABSTRACTOR Primary Care Provider [phone] Allergies Active Allergy Reactions Criticality Noted Date Comments Penicillins High 10/19/2020 Other reaction(s): Facial swelling, Hives Medications insulin lispro (HumaLOG) 100 UNIT/ML injection inject by subcutaneous route per sliding scale 022 Active insulin glargine (Lantus) 100 UNIT/ML injection Inject under the skin. Active acetaminophen (Tylenol 8 Hour) 650 MG ER tablet TAKE 1 TAB BY MOUTH EVERY 8 HOURS IF NEEDED FOR PAIN FOR UP TO 10 DAYS. DO NOT CRUSH, CHEW, OR SPLIT 15 tablet 023 Active Lantus SoloStar 100 UNIT/ML pen INJECT 36 UNITS SUBCUTANEOUSLY ONCE DAILY 023 Active FREESTYLE LITE test strip USE TO TEST 5 TIMES DAILY 023 Active insulin aspart FlexPen (NovoLOG) 100 UNIT/ML pen E10.9 MAX DAILY DOSE 75 UNITS , SUBCUTANEOUS INFUSION 3 TIMES A DAY BEFORE MEALS PER SLIDING SCALE 023 Active B-D UF III MINI PEN NEEDLES 31G X 5 MM misc FOR USE WITH INSULIN PEN 023 Active FreeStyle lancets USE TO TEST 4 TIMES DAILY 023 Active Continuous Blood Gluc Feather Mixer (FreeStyle Ruma 2 [place]) device Use as directed to monitor glucose ever 8 hours. 1 each 024 Active Continuous Blood Gluc Sensor (FreeStyle Ruma 2 Sensor) misc Use as directed to monitor glucose ever 8 hours. Replace sensor every 14 days. 2 each 024 Active busPIRone (Buspar) 10 MG tablet TAKE 1 TABLET BY MOUTH TWICE A DAY 180 tablet 2 024 Active escitalopram (Lexapro) 20 MG tablet TAKE 1 TABLET BY MOUTH EVERY DAY FOR ANXIETY 90 tablet 025 Active ibuprofen 800 MG tablet TAKE 1 TABLET BY MOUTH EVERY 8 HOURS NEEDED FOR MILD PAIN FOR UP TO 10 DAYS 15 tablet 023 2024 Discontinued(T herapy completed) escitalopram (Lexapro) 20 MG tablet TAKE 1 TABLET BY MOUTH EVERY DAY FOR ANXIETY 90 tablet 023 2024 Discontinued(R eorder (will not trigger notification to Pharmacy)) Active Problems Problem Noted Date Diagnosed Date Graves' disease 05/25/2025 Lesion of vulva 05/25/2025 Type 1 diabetes mellitus 05/25/2025 Generalized anxiety disorder 08/14/202305/2024 Hyperglycemia due to type 1 diabetes mellitus 08/14/2023 Hyperthyroidism 08/14/2023 08/14/2023 Major depressive disorder 10/19/20202023 Encounters Date Type Department Care Team Description 05/26/2025 2:00 PM EDT Office Visit [facility] [address] [place] [address] Corin Dubon FNP Adult wellness visit (Primary Dx); Hyperglycemia due to type 1 diabetes mellitus (HCC); UTI symptoms; Encounter for immunization 05/26/2025 Travel 05/19/2025 Patient Outreach [facility] [address] [place] [address], [place] [id number] Corin Dubon FNP Pre-visit Planning (SDOH negative, Tobacco screening negative. ) 05/19/2025 Travel from Last 3 Months Immunizations Immunization Administration Dates Next Due Hep A, ped/adol, 2 dose 08/29/2016,06/17/2015 Influenza injectable quadriv alent preservative free 06/12/2018 Influenza, IIV3, injectable 05/13/2020, 7,06/30/2014 Influenza, seasonal, injecta ble, preservative free 05/26/2025,05/23/2016,06/17/2015 Meningococcal B, Recombinant 08/29/2016,06/17/20 15 Meningococcal MCV4O 11/25/2018 Pneumococcal Conjugate PCV 13 06/17/2015 Pneumococcal Conjugate PCV 20 05/26/2025 Tdap 09/22/2022,12/12/2021,11/25/2018 Family History Medical History Relation Name Comments Asthma Mother Diabetes Paternal Grandmother Thyroid disease Sister Relation Name Status Comments Mother Paternal Grandmother Sister Social History Tobacco Use Types Packs/Day Years [...] 18 05/26/2025 2:16 PM EDT Oxygen Saturation 97% 08/14/2023 3:42 PM EST Inhaled Oxygen Concentration - - Weight 94.3 kg (207 lb 12.8 oz) 05/26/2025 2:16 PM EDT Height 161.3 cm (5' 3.5 ) 05/26/2025 2:16 PM EDT Body Mass Index 36.23 05/26/2025 2:16 PM EDT Plan of Treatment Upcoming Encounters Date Type Department Care Team (Late st Contact Info) Description 07/07/2025 3:30 PM EST Office Visit [facility] [address] [place], [place] [phone] Corin Dubon FNP [address] [place] [address] Health Maintenance Due Date Last Done Comments HIV Screening 1998 Lipid Panel 1998 Diabetes: Foot Exam 2008 Eye Exam 2008 Alcohol/Substance Use Screening 2010 Family Planning (PISQ) 2013 HPV Vaccines (1 - 3-dose series) 2013 Hepatitis C Screening 2016 Diabetes: Urine Protein Screening 2017 Hepatitis B Vaccines (1 of 3 - 19+ 3-dose series) 2017 Dental Oral Exam 05/31/2023 11/28/2022 Dental Prophylaxis 06/28/2023 12/25/2022 Dental X-Ray: Bitewings 11/30/2023 11/28/2022 COVID-19 Vaccine ( season) 2025 Pap Smear 08/01/2025 08/01/2022 Diabetes: Hemoglobin A1C 08/26/2025 05/26/2025, 08/05 Depression Monitoring 11/24/2025 05/26/2025, 025 Dental X-Ray: Full Mouth 11/29/2025 11/28/2022 Disability Screening 05/19/2026 05/19/2025 SDOH Screening 05/19/2026 05/19/2025 Tobacco Screening 05/26/2026 05/26/2025 DTaP/Tdap/Td Vaccines (5 - Td or Tdap) 06/09/2034 06/09/2024, 09/22/2022, 12/12/2021, Additional history exists Zoster Vaccines (1 of 2) 2048 RSV Patients and Patients Aged 60 years or older (1 - 1-dose 75+ series) 2073 Hepatitis A Vaccines Completed 08/29/2016, 06/17/20 Meningococcal B Vaccine Completed 08/29/2016, 06/17 Meningococcal Vaccine Aged Out 11/25/2018 No leah camilla eligible based on patient's age to complete this topic Influenza Vaccine Completed 05/26/2025, , 05/13/2020, Additional history exists Pneumococcal Vaccine: Pediatrics (0 to 5 Years) and At-Risk Patients (6 to 49) Years Completed 05/26/2025, 06/17/2015 HIB Vaccines Aged Out No longer eligi [...] due to type 1 diabetes mellitus (HCC) URINALYSIS, COMPLETE, WITH REFLEX TO CULTURE Routine 05/26/2025 3:04 PM EDT POCT GLUCOSE Routine 05/26/2025 2:22 PM EDT Hyperglycemia due to type 1 diabetes mellitus (HCC) POCT GLYCATED HEMOGLOBIN, TOTAL Routine 05/26/2025 2:21 PM EDT Hyperglycemia due to type 1 diabetes mellitus (HCC) PROPHYLAXIS - ADULT Routine 12/25/2022 2 :00 PM EDT INTRAORAL - COMPLETE SERIES OF RADIOGRAPHIC IMAGES Routine 11/28/2022 1:00 PM EDT Dental caries Dental abscess Dental plaque COMPREHENSIVE ORAL EVALUATION - NEW OR ESTABLISHED PATIENT Routine 11/28/2022 1:00 PM EDT Dental caries Dental abscess Dental plaque HM PAP/HPV Routine 08/01/2022 12:00 AM EST from Last 3 Months or Most Recently Relevant to Health Maintenance Results * (ABNORMAL) Urinalysis, Complete, with Reflex to Culture (05/26/2025 3:04 PM EDT) Color Urine Yellow [facility] Appearance Urine Clear [facility] PH 8.5 5.0 - 9.0 [facility] Glucose Urine UA Negative Negative mg/dL [facility] Urine Blood Negative Negative [facility] Specific [place] - Urine 1.015 1.005 - 1.025 [facility] Urine Protein Negative Neg-Trace mg/dL [facility] Urine Ketones Trace Negative mg/dL [facility] Nitrite Urine Negative Negative [facility] Leukocyte Esterase Urine Moderate (2+)(A) Negative [facility] RBC Urine 0-2 0 - 2 /HPF [facility] Urine WBC 0-5 0 - 5 /HPF [facility] Urine Squamous Epithelial Cell 6-10 0 - 2 /HPF [facility] Urine Bacteria None Seen None Seen [facility] Hyaline Casts, Urine 0-2 0 - 2 /LPF [facility] Urine Yeast Present [facility] 05/26/2025 3:04 PM EDT 05/26/2025 6:54 PM EDT Narrative [facility] - 05/26/2025 7:38 PM EDT Urine, Clean Catch us Corin Dubon DATA ABSTRACTOR LAB URINE ORDERABLES Final Res ult [facility] [address] [place] [address] [phone] * (ABNORMAL) POCT Urinalysis (05/26/2025 3:04 PM EDT) Color, UA Yellow Clarity, UA Clear Glucose, UA Negative Bilirubin, UA Negative Ketones, UA Positive Spec Grav, UA 1.020 Blood, UA Positive(A) Negative, None Detected Comment:intact pH, UA 7.0 Protein, UA Trace Urobilinogen, UA 2.0 Leukocytes, UA Trace Negative, Rare, Trace Nitrite, UA Negative Negative, None Detected [employer] Lot # [id number] Lot# Expiration Date 3, Urine (Urine, Random) 05/26/2025 3:04 PM EDT Tag'ByP POINT OF CARE TEST ENTER/EDIT ORDERABLES Final Result * POCT Glucose (05/26/2025 2:22 PM EDT) Glucose Blood, POC 127 60 - 200 mg/dL [employer] Lot # [id number] Lot# Expiration Date 3,026 Blood Capillary blood specimen / Unknown 05/26/2025 2:22 PM EDT Tag'[employer] POINT OF CARE TEST ENTER/EDIT ORDERABLES Final Result * (ABNORMAL) POCT Hgb A1c (05/26/2025 2:21 PM EDT) Hemoglobin A1C 7.2(A) 4.0 - 5.7 % [employer] Lot # [id number] Lot# Expiration Date 162,027 Blood 05/26/2025 2:21 PM EDT Tag[employer]P POINT OF CARE TEST ENTER/EDIT ORDERABLES Final Result * Hm Pap Smear (08/01/2022 12:00 AM EST) Historical Provider HEALTH MAINTENANCE Final Result from Last 3 Months or Most Recently Relevant to Health Maintenance [facility] C[facility] DENTAL-[facility] MEDICA[facility] STAND ADULT Care Teams Coat Fitter Relationship Specialty Start Date End Date Corin Dubon FNP [address] [place] [address] PCP - General Family Medicine 04/27/25
--- OUTSIDE RECORDS SUMMARY | 2025-05-26 22:24 | XMS_ITS | Encounter Summary ---
Author Organization [employer] Address [address] [facility] [address] [place] [address] Care Team Providers Care Oracle Business Intelligence Developer Name Role Phone Georgette Rossi [facility] Primary Care Provider Cailin Gomez [facility] Primary Care Provider [phone] Corin Dubon [facility] Primary Care Provider [phone] Reason for Visit * Reason Comments Med Refill Encounter Details Date Type Department Care Team (Late st Contact Info) Description 12/26/2022 Refill [facility] [address] [place] [address] No Leblanc DDS [address] [place] [address] Social History Tobacco Use Types Packs/Day Years [...] documented in this encounter Plan of Treatment Upcoming Encounters Date Type Department Care Team (Late st Contact Info) Description 07/07/2025 3:30 PM EST Office Visit [facility] [address] [place] [address] Corin Dubon FNP [address] [place] [address] documented as of this encounter Visit Diagnoses Not on filedocumented in this encounter Care Teams Oracle Business Intelligence Developer Relationship Specialty Start Date End Date Georgette Rossi FNP PCP - General Family Medicine 03/29/22 01/09/23 Cailin Hidalgo FNP [address] [place] [phone] PCP - General Family Medicine 01/30/23 04/06/24 Corin Dubon FNP [address] [place] [id number] PCP - General Family Medicine 04/27/25 documented as of this encounter
--- OUTSIDE RECORDS SUMMARY | 2025-05-26 22:24 | XMS_ITS | Encounter Summary ---
Author Organization [employer] Address [address] [place] [address] [address] [place] [address] Care Team Providers Care Hand Bookbinder Name Role Phone Georgette RossiP Primary Care Provider Cailin GomezP Primary Care Provider [phone] Corin Dubon Primary Care Provider Encounter Details Date Type Department Care Team (Late st Contact Info) Description 10/23/[address] [facility] [address] [place] [phone] Georgette Rossi FNP Social History Tobacco Use Types Packs/Day Years [...] Description 07/07/2025 3:30 PM EST Office Visit [facility] [address] [place] [address] Corin Dubon FNP [address] [place] [address] documented as of this encounter Procedures Procedure Name Priority Date/Time Associated Diagnosis Comments HM PAP/HPV Routine 08/01/2022 12:00 AM EST documented in this encounter Results * Hm Pap Smear (08/01/2022 12:00 AM EST) Historical Provider HEALTH MAINTENANCE Final Result documented in this encounter Visit Diagnoses Not on filedocumented in this encounter Care Teams Hand Bookbinder Relationship Specialty Start Date End Date Georgette Rossi FNP PCP - General Family Medicine 03/29/22 01/09/23 Cailin Hidalgo FNP [address] [place] [address] PCP - General Family Medicine 01/30/23 04/06/24 Corin Dubon FNP [address] [place] [address] PCP - General Family Medicine 04/27/25 documented as of this encounter
--- OUTSIDE RECORDS SUMMARY | 2025-05-26 22:25 | XMS_ITS | Encounter Summary ---
Author Organization [employer] Address [address] [facility] 7[address] [place] [address] Care Team Providers Care Flat Surfacer Name Role Phone Corin Dubon CANE PILER Primary Care Provider [phone] Encounter Details Date Type Department Care Team (Latest Contact Info) Description 05/26/2025 Travel Social History Tobacco Use Types Packs/Day Years [...] AM EDT documented as of this encounter Functional Status * Over the [...] PM EDT Marcia Man [place] * Feeling tired or having little [...] Nearly every day 05/26/2025 3:09 PM EDT Marcai Man [place] * Moving or speaking so slowly that other people could have noticed? Or the opposite - being so fidgety or restless that you have been moving around a lot more than usual. Answer Date of Assessment Author Nearly every day 05/26/2025 3:09 PM EDT Marcia Man [place] * Thoughts that you would be better off or hurting yourself in some way Answer Date of Assessment Author Not at all 05/26/2025 3:09 PM EDT Marcia Man [place] * Patient Health Questionnaire-9 Score Answer Date of Assessment Author 18 05/26/2025 3:09 PM EDT Marcia Man [place] * How difficult have these problems made it for you to do your work, take care of things at home, or get along with other people? Answer Date of Assessment Author Very difficult 05/26/2025 3:09 PM EDT Marcia Man [place] * Over the last 2 weeks, how often have you been bothered by any of the following problems? Question Answer Date of Assessment Author Feeling nervous, anxious, or on edge 3 05/26/2025 3:09 PM EDT Marcia Man [place] Not being able to stop or co ntrol worrying 3 05/26/2025 3:09 PM EDT Marcia Man [place] Worrying too much about diff erent things 3 05/26/2025 3:09 PM EDT Marcia Man [place] Trouble relaxing 3 05/26/2025 3:09 PM EDT Marcia Paz MA Being so restless that it is hard to sit still 3 05/26/2025 3:09 PM JEFFT Marcia Man MA Becoming easily annoyed or irritable 2 05/26/2025 3:09 PM EDT Marcia Man [place] Feeling afraid as if somethi ng awful might happen 0 05/26/2025 3:09 PM JEFFT Marcia Man MA IAN-7 Total Score 17 05/26/2025 3:09 PM JEFFT Marcia Man [place] documented as of this encounter Plan of Treatment Upcoming Encounters Date Type Department Care Team (Late st Contact Info) Description 07/07/2025 3:30 PM EST Office Visit [facility] [address] [place], [place] [phone] Corin Dubon FNP [address] [place] [address] documented as of this encounter Visit Diagnoses Not on filedocumented in this encounter Additional Health Concerns Assessment Noted Time PHQ-9 Depression Total Score: 18 05/26/ 025 3:09 PM EDT documented as of this encounter Care Teams Flat Surfacer Relationship Specialty Start Date End Date Corin Dubon FNP [address] [place] [address] PCP - General Family Medicine 04/27/25 documented as of this encounter
--- OUTSIDE RECORDS SUMMARY | 2025-05-26 22:25 | XMS_ITS | Clinical Summary ---
Author Organization [facility] Address [address] [place] [address] Phone Care Team Providers Care Wood Carving Machine Operator Name Role Phone Danny Wisdom Primary Care Provider Juliana vailable Danny Wisdom Unavailable Unavailab le Danny Wisdom Unavailable Unavailab le Social History Tobacco Use Types Packs/Day Years Used Date Smoking Tobacco: Never Assessed Comments Unknown Sex and Gender Information Value Date Recorded Sex Assigned at Not on file Legal Sex Female 11:00 PM EDT Gender Identity Not on file Sexual Orientation Not on file Plan of Treatment Not on file Care Teams Wood Carving Machine Operator Relationship Specialty Start Date End Date Danny Wisdom PCP - General 06/22/14 Danny Wisdom PCP - Clinical PCP 06/22/14 Danny Wisdom PCP - Insurance PCP 06/22/14
--- OUTSIDE RECORDS SUMMARY | 2025-05-26 22:25 | XMS_ITS | Encounter Summary ---
Author Organization [employer] Address [address] [facility] [address]t [place] [address] Care Team Providers Care Social Work Administrator Name Role Phone Cailin Hidalgo CHIEF OF POLICE Primary Care Provider Corin Dubon CHIEF OF POLICE Primary Care Provider [phone] Reason for Visit * Reason Onset Date Comments Appointment Request 01/29/2023 Encounter Details Date Type Department Care Team ([facility] st Contact Info) Description 01/29/2023 Telephone [facility] [address] [place] [address] Georgette Rossi FNP Appointment Request Social History Tobacco Use Types [...] Description 07/07/2025 3:30 PM EST Office Visit [facility] [address] [place] [address] Corin Dubon FNP [address] [place] [address] documented as of this encounter Visit Diagnoses Not on filedocumented in this encounter Care Teams Social Work Administrator Relationship Specialty Start Date End Date Cailin Hidalgo FNP [address] [place] [address] PCP - General Family Medicine 01/30/23 04/06/24 Corin Dubon FNP [address] [place] [address] PCP - General Family Medicine 04/27/25 documented as of this encounter
--- OUTSIDE RECORDS SUMMARY | 2025-05-26 22:25 | XMS_ITS | Encounter Summary ---
Author Organization [employer] Address [address] [facility] 7t [place] [address] Care Team Providers Care Manager Of Operations Name Role Phone Cailin Hidalgo COIN MACHINE MECHANIC Primary Care Provider [phone] Corin Dubon COIN MACHINE MECHANIC Primary Care Provider [phone] Reason for Visit * Reason Onset Date Comments extractions 05/02/2023 Encounter Details Date Type Department Care Team ([facility] Contact Info) Description 05/02/2023 Telephone [facility] [address] [place] [address] Chava Ochoa DDS [address] [place] [address] extractions Social History Tobacco Use Types Packs/Day [...] and treatment planned for extractions and crowns. [place] appt requested but the extraction appt was not requested and she wants the extraction done due to discomfort. She would like to be schedule for exo. documented in this encounter Plan of Treatment Upcoming Encounters Date Type Department Care Team (Late st Contact Info) Description 07/07/2025 3:30 PM EST Office Visit [facility] [address] [place], [place] [phone] Corni Dubon FNP [address] [place] [address] documented as of this encounter Visit Diagnoses Not on filedocumented in this encounter Care Teams Manager Of Operations Relationship Specialty Start Date End Date Cailin Hidalgo FNP [address] [place] [id number] PCP - General Family Medicine 01/30/23 04/06/24 Corin Dubon FNP [address] [place] [id number] PCP - General Family Medicine 04/27/25 documented as of this encounter
[2025-05-27 05:21] LABS: CT PCR Urine NOT DETECTED (Not Detect.); NG PCR Urine NOT DETECTED (Not Detect.)
[2025-05-27 05:32] LABS: Bacterial Vaginosis PCR NEGATIVE (Negative); Candida Group PCR DETECTED (Not Detect); Candida glab krusei PCR NOT DETECTED (Not Detect); Trichomonas vaginalis PCR NOT DETECTED (Not Detect)
== END 2025-05-26 18:53 | disposition home or self-care (01) ==
LOC: HO.LNP 18:52
PROVIDERS: Visit Provider Nurse Practitioner Family
DX: Z00.00 Encounter for general adult medical examination without abnormal findings (principal); Z20.2 Contact with and (suspected) exposure to infections with a predominantly sexual mode of transmission; E10.65 Type 1 diabetes mellitus with hyperglycemia; R39.9 Unspecified symptoms and signs involving the genitourinary system
CPT/HCPCS: 81001; 81515; 87086; 87147; 87491; 87591